=== PATIENT | female | born 1940 | race African-American/Black ===

== ENCOUNTER 2016-06-03 06:21 | Day surgery (SDC) | payer OTHER ==
[2016-06-03] MEDS ORDERED: FULVESTRANT 250 MG/5 ML SYRINGE IM ONE (08:00)
[2016-06-03 08:43] LABS: EOSINOPHIL 1.7 % (0-4.5); MCH 28.6 pg (25.7-33.7); MCHC 32.4 g/dl (32.0-36.0); MEAN CELL VOLUME 88.2 fl (80-96); MEAN PLT VOLUME 7.2 fl (7.5-11.1); NEUTROPHILS 71.3 % (42.8-82.8); PLATELET COUNT 250 K/MM3 (134-434); RDW 14.2 % (11.6-15.6); WHITE BLOOD COUNT 7.7 K/mm3 (4.0-10.0)
[2016-06-03 10:37] LABS: EOSINOPHIL 0.9 % (0-4.5); MCH 28.8 pg (25.7-33.7); MCHC 32.8 g/dl (32.0-36.0); MEAN PLT VOLUME 7.4 fl (7.5-11.1); NEUTROPHILS 77.9 % (42.8-82.8); PLATELET COUNT 252 K/MM3 (134-434); RDW 14.5 % (11.6-15.6); WHITE BLOOD COUNT 6.6 K/mm3 (4.0-10.0)
[2016-06-03 11:04] LABS: CALCIUM 10.1 mg/dL (8.5-10.1); CREATININE 1.2 mg/dL (0.55-1.02)
[2016-06-03 11:06] LABS: ALBUMIN 3.7 g/dl (3.4-5.0); BILIRUBIN,DIRECT 0.2 mg/dL (0.0-0.2)
[2016-06-03 11:08] LABS: BILIRUBIN,TOTAL 0.7 mg/dL (0.2-1.0); TOT PROT 7.3 g/dl (6.4-8.2)
[2016-06-03 15:49] VITALS: BP 143/80; PULSE 79; TEMP 97.6; BMI 27.4
== END 2016-06-03 18:54 | disposition home or self-care (01) ==
LOC: JONCCHEMO 06:21 → J7W 09:37 → JONCCHEMO 18:54
PROVIDERS: ATTEND Internal Medicine Hematology & Oncology
DX: Z51.11 Encounter for antineoplastic chemotherapy (principal); C50.212 Malignant neoplasm of upper-inner quadrant of left female breast; C79.51 Secondary malignant neoplasm of bone
CPT/HCPCS: 96402; J9395; 36415; 80048; 80076; 82378; 85025; 86300

== ENCOUNTER 2016-07-05 06:58 | Day surgery (SDC) | payer OTHER ==
[2016-07-05] MEDS ORDERED: FULVESTRANT 250 MG/5 ML SYRINGE IM ONE (08:00)
[2016-07-05 09:55] LABS: BASOPHIL 0.9 % (0-2.0); EOSINOPHIL 0.8 % (0-4.5); MCH 28.5 pg (25.7-33.7); MCHC 32.4 g/dl (32.0-36.0); MEAN CELL VOLUME 88.2 fl (80-96); MEAN PLT VOLUME 7.9 fl (7.5-11.1); NEUTROPHILS 80.3 % (42.8-82.8); PLATELET COUNT 238 K/MM3 (134-434); RDW 14.7 % (11.6-15.6); WHITE BLOOD COUNT 10.1 K/mm3 (4.0-10.0)
[2016-07-05] MEDS ORDERED: PORTA CATH FLUSH 10 ML IVPUSH PRN (12:27)
[2016-07-05 12:39] LABS: ALBUMIN 3.5 g/dl (3.4-5.0); BILIRUBIN,DIRECT 0.2 mg/dL (0.0-0.2); BILIRUBIN,TOTAL 0.6 mg/dL (0.2-1.0); CALCIUM 10.4 mg/dL (8.5-10.1); CREATININE 1.3 mg/dL (0.55-1.02); MAGNESIUM 2.3 mg/dL (1.8-2.4); TOT PROT 7.2 g/dl (6.4-8.2)
[2016-07-05 13:44] VITALS: BP 139/95; PULSE 86
[2016-07-05 14:03] VITALS: TEMP 98
== END 2016-07-05 15:01 | disposition home or self-care (01) ==
LOC: JONCCHEMO 06:58 → J7W 10:52 → JONCCHEMO 15:01
PROVIDERS: ATTEND Internal Medicine Hematology & Oncology
DX: Z51.11 Encounter for antineoplastic chemotherapy (principal); C50.212 Malignant neoplasm of upper-inner quadrant of left female breast; C79.51 Secondary malignant neoplasm of bone
CPT/HCPCS: 36415; 80048; 80076; 83735; 85025; 96402; J9395

== ENCOUNTER 2016-08-05 07:02 | Day surgery (SDC) | payer OTHER ==
[2016-08-05] MEDS ORDERED: FULVESTRANT 250 MG/5 ML SYRINGE IM ONE (08:00)
[2016-08-05 09:34] LABS: EOSINOPHIL 1.1 % (0-4.5); MCHC 31.9 g/dl (32.0-36.0); MEAN CELL VOLUME 87.8 fl (80-96); MEAN PLT VOLUME 7.8 fl (7.5-11.1); NEUTROPHILS 80.5 % (42.8-82.8); PLATELET COUNT 243 K/MM3 (134-434); WHITE BLOOD COUNT 8.4 K/mm3 (4.0-10.0)
[2016-08-05 11:25] VITALS: PULSE 83; TEMP 98
[2016-08-05 12:46] LABS: ALBUMIN 3.5 g/dl (3.4-5.0); BILIRUBIN,DIRECT 0.2 mg/dL (0.0-0.2); BILIRUBIN,TOTAL 0.6 mg/dL (0.2-1.0); CALCIUM 10.7 mg/dL (8.5-10.1); COCKROFT - GAULT 47.6; CREATININE 1.3 mg/dL (0.55-1.02); MAGNESIUM 2.2 mg/dL (1.8-2.4); TOT PROT 7.3 g/dl (6.4-8.2)
[2016-08-05 12:56] VITALS: BP 133/82
== END 2016-08-05 13:07 | disposition home or self-care (01) ==
LOC: JONCCHEMO 07:02 → J7W 11:01 → JONCCHEMO 13:07
PROVIDERS: ATTEND Internal Medicine Hematology & Oncology
DX: Z51.11 Encounter for antineoplastic chemotherapy (principal); C50.212 Malignant neoplasm of upper-inner quadrant of left female breast; C79.51 Secondary malignant neoplasm of bone
CPT/HCPCS: 96402; J9395; 36415; 80048; 80076; 82378; 83735; 85025; 86300

== ENCOUNTER 2016-08-31 07:23 | Inpatient (IN) | payer OTHER ==
--- NOTE | 2016-08-31 07:38 | PDOC ---
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 She reports that she experiences a chronic intermittent dry cough ever since her cancer came back, however, approximately 3 days ago, her cough worsen as it became constant. She reports feeling short of breath secondary to her constant cough and also nauseous, no vomiting. She has also reports orthopnea, as she has noted she has needed to sleep in an upright position to avoid feeling short of breath during the past few days. No associated fevers, chills, chest pain, lightheadedness, dizziness, headache, visual changes, neck pain, back pain, leg pain.swelling, abdominal pain, vomiting, diarrhea. No urinary symptoms. Allergies: No Known Drug Allergies Past Surgical History: Left breast mastectomy Social History: Former smoker. No EtOH and recreational drug use. Primary Care Physician: Dr. Francois Decker Oncologist/Lead Qa Analyst: Dr. Mejia Sofia <Evelyn Walls - Last Filed: 08/31/16 11:11> - General Chief Complaint: Shortness of Breath Stated Complaint: SOB Time Seen by Provider: 08/31/16 07:29 Past History - Past Medical History Anemia: No Asthma: No Cancer: Yes (breast mets to lung and bone) Cardiac Disorders: Yes (A FIB) CVA: Yes (R side weakness (mild)) COPD: No CHF: No Dementia: No Diabetes: Yes GI Disorders: No Disorders: No HTN: Yes Hypercholesterolemia: Yes Liver Disease: No Seizures: No Thyroid Disease: No - Surgical History Abdominal Surgery: No Appendectomy: No Cardiac Surgery: No Cholecystectomy: No Lung Surgery: No Neurologic Surgery: No Orthopedic Surgery: No - Immunization History Immunization Up to Date: Yes - Psycho/Social/Smoking Cessation Hx Anxiety: No Suicidal Ideation: No Smoking Status: No Smoking History: Never smoked Have you smoked in the past 12 months: No Number of Cigarettes Smoked Daily: 0 If you are a former smoker, when did you quit?: Over 30 years ago Information on smoking cessation initiated: No Hx Alcohol Use: No Drug/Substance Use Hx: No Substance Use Type: None Hx Substance Use Treatment: No <Shin Núñez - Last Filed: 08/31/16 10:58> <Evelyn Walls - Last Filed: 08/31/16 11:11> - Past Medical History Allergies/Adverse Reactions: Allergies Allergy/AdvReac Type Severity Reaction Status Date / Time No Known Drug Allergies Allergy Verified 08/31/16 07:25 Home Medications: Ambulatory Orders Metformin HCl 500 mg PO BID 02/16/15 Amlodipine Besylate [Norvasc -] 5 mg PO DAILY #30 tablet 02/20/15 Furosemide [Lasix -] 40 mg PO DAILY #30 tablet 02/20/15 Simvastatin [Zocor -] 40 mg PO HS #30 tablet 02/20/15 Nebivolol HCl [Bystolic] 20 mg PO HS 05/07/15 Warfarin Na [Coumadin -] 6 mg PO DAILY #30 tablet 05/08/15 Glyburide [Diabeta -] 5 mg PO ASDIR 08/31/16 Olmesartan Medoxomil [Benicar (Nf)] 40 mg PO ASDIR 08/31/16 Sitagliptin Phosphate [Januvia] 50 mg PO DAILY 08/31/16 Review of Systems - Review of Systems Able to Perform ROS?: Yes Comments:: 08/31/16 07:52 CONSTITUTIONAL: No fever, no chills, no fatigue EYES: No visual changes ENT: No ear pain, no sore throat CARDIOVASCULAR: No chest pain, no palpitations RESPIRATORY: Yes: Cough. Shortness of Breath. Orthopnea GI: No abdominal pain, no nausea, no vomiting, no constipation, no diarrhea GENITOURINARY: No dysuria, no frequency, no hematuria MUSKULOSKELETAL: No back pain, no joint pain, no myalgias SKIN: No rash NEURO: No headache <Evelyn Walls - Last Filed: 08/31/16 11:11> *Physical Exam - Vital Signs Last Vital Signs Temp Pulse Resp BP Pulse Ox 97.6 F 125 H 18 141/91 96 08/31/16 07:26 08/31/16 07:26 08/31/16 07:26 08/31/16 07:26 08/31/16 07:26 <Shin Núñez - Last Filed: 08/31/16 10:58> - Vital Signs Last Vital Signs Temp Pulse Resp BP Pulse Ox 98.2 F 125 H 18 141/91 96 08/31/16 07:35 08/31/16 07:26 08/31/16 07:26 08/31/16 07:26 08/31/16 07:26 - Physical Exam Comments: 08/31/16 07:52 CONSTITUTIONAL: Awake. Alert and oriented x3. Tachypneic and dyspneic HEAD: Normocephalic; atraumatic EYES: PERRL; EOM intact ENMT: External appears normal; normal oropharynx NECK: Supple; non-tender; no cervical lymphadenopathy CARD: Tachycardic. Irregularly, irregular rate and rhythm no murmurs, rubs, or gallops RESP: Decreased breath sounds appreciated about two thirds of the left lung field up. ABD: Soft, non-distended; non-tender; no palpable organomegaly, no palpable hernias EXT: Normal ROM in all four extremities; non-tender to palpation; distal pulses intact SKIN: Warm, dry, no rash NEURO: Right lower extremity motor strength is 3/5. Right upper extremity, left upper extremity and left lower extremity motor strength is 5/5. <Evelyn Walls - Last Filed: 08/31/16 11:11> Heart Score/ECG Review #1 08/31/16 08:15 Reviewed and interpreted by Dr. Shin Núñez IMPRESSION: Atrial fibrillation with rapid ventricular response with a rate of 121 bpm. LVH. T wave inversions in v1. Left axis deviation. <Evelyn Walls - Last Filed: 08/31/16 11:11> ED Treatment Course - LABORATORY CBC & Chemistry Diagram: 08/31/16 08:22 08/31/16 08:22 <Shin Núñez - Last Filed: 08/31/16 10:58> - LABORATORY CBC & Chemistry Diagram: 08/31/16 08:22 08/31/16 08:22 - RADIOLOGY Radiograph Interpretation: 08/31/16 08:46 EXAM: RAD/CHEST X-RAY PORTABLE Interpreted by Dr. Declan Stone IMPRESSION: Right port catheter in place. No evidence of right pneumothorax, or pleural effusion. The right diaphragm is not effaced, no evidence of blunting of the right costophrenic angles. Nodularity is seen throughout the right lung. Combination of the parenchymal and pleural disease is observed in the left hemithorax. Surgical clips are noted in the left axillary region. <Evelyn Walls - Last Filed: 08/31/16 11:11> Medical Decision Making - Medical Decision Making 08/31/16 10:59 Patient is a frail-appearing 76-year-old female with history of metastatic breast CA Faslodex, diabetes, DVT, status post CVA, who presents with worsening shortness of breath and dyspnea (at rest and with minimal exertion for the past several days and did of atrial fibrillation with rapid ventricular response. On initial evaluation, patient is noted to be dyspneic, tachypneic and tachycardic with significantly decreased breath sounds on the left. CBC shows no evidence of leukocytosis. Calcium is mildly elevated consistent with bony metastases. INR is noted to be 3.34 making PE at this time highly unlikely. Chest x-ray shows persistent pleural disease on the left which was better evaluated by a CT of chest from 2 weeks ago. After administration of normal saline-500 mL, patient 's heart rate and respiratory rate have slightly improved. I suspect new onset A. fib with rapid ventricular response due to the pulmonary disease requiring rate control. We'll administer Cardizem-30 mg by mouth. Will consult cardiology. Will admit to telemetry further evaluation and treatment <Shin Núñez - Last Filed: 08/31/16 10:58> - Medical Decision Making 08/31/16 10:[address] Mejia Sofia. Immediate response. Case was discussed. 08/31/16 10:[address] De Jesus. Immediate response. Case was discussed. 08/31/16 11:[address] Osorio <Evelyn Walls - Last Filed: 08/31/16 11:11> *DC/Admit/Observation/Transfer - Discharge Dispostion Admit: Yes - Attestations Physician Attestion: 08/31/16 10:59 The documentation was prepared by the scribe under my direct supervision. I have reviewed the documentation which correctly represents the findings, medical decision-making and critical action taken by me. <Shin Núñez - Last Filed: 08/31/16 10:58> - Attestations Scribe Attestion: 08/31/16 07:55 Documentation prepared by Evelyn Walls, acting as medical technician for Shin Núñez MD. <Evelyn Walls - Last Filed: 08/31/16 11:11> Diagnosis at time of Disposition: Atrial fibrillation with rapid ventricular response, Pleural effusion Breast cancer Qualifiers: Breast location: unspecified site of breast Estrogen receptor status: positive Patient sex: female Laterality: right Qualified Code(s): C50.911 - Malignant neoplasm of unspecified site of right female breast - Referrals Referrals: Francois Decker MD [Primary Care Provider] -
[2016-08-31] MEDS ORDERED: SODIUM CHLORIDE 500 ML IV STA (07:49)
[2016-08-31 07:50] VITALS: BMI 27.8
[2016-08-31 09:10] LABS: BASOPHIL 0.7 % (0-2.0); EOSINOPHIL 0.5 % (0-4.5); MCH 28.5 pg (25.7-33.7); MCHC 32.5 g/dl (32.0-36.0); MEAN CELL VOLUME 87.7 fl (80-96); MEAN PLT VOLUME 7.6 fl (7.5-11.1); NEUTROPHILS 82.7 % (42.8-82.8); PLATELET COUNT 235 K/MM3 (134-434); RDW 14.9 % (11.6-15.6); WHITE BLOOD COUNT 8.4 K/mm3 (4.0-10.0)
[2016-08-31 09:35] LABS: ALBUMIN 3.4 g/dl (3.4-5.0); BILIRUBIN,TOTAL 0.6 mg/dL (0.2-1.0); CALCIUM 10.2 mg/dL (8.5-10.1); COCKROFT - GAULT 57.9615; CREATININE 1.1 mg/dL (0.55-1.02); TOT PROT 6.9 g/dl (6.4-8.2)
[2016-08-31 09:37] LABS: TROPONIN I 0.14 ng/ml (0.00-0.05)
[2016-08-31 09:57] LABS: INR 3.34 (0.82-1.09); PROTHROMBIN TIME (PATIENT) 37.6 SEC (9.98-11.88)
[2016-08-31] MEDS ORDERED: dilTIAZem HCL 30 MG TABLET (FP) PO ONE (10:38)
[2016-08-31] MEDS ORDERED: dilTIAZem HCL 30 MG TABLET (FP) ONE (10:55)
--- NOTE | 2016-08-31 11:18 | EKG ---
Test Reason : Blood Pressure : / mmHG Vent. Rate : 121 BPM Atrial Rate : 122 BPM P-R Int : 000 ms QRS Dur : 102 ms QT Int : 276 ms P-R-T Axes : 000 -42 139 degrees QTc Int : 391 ms ATRIAL FIBRILLATION WITH RAPID VENTRICULAR RESPONSE LEFT AXIS DEVIATION VOLTAGE CRITERIA FOR LEFT VENTRICULAR HYPERTROPHY ABNORMAL ECG WHEN COMPARED WITH ECG OF 20-FEB-2015 08:52, ATRIAL FIBRILLATION HAS REPLACED SINUS RHYTHM VENT. RATE HAS INCREASED BY 50 BPM T WAVE VARIATION Confirmed by KARLEY DUFFY MD ([id number]) on 08/31/2016 11:18:46 AM Referred By: Confirmed By:KARLEY DUFFY MD
--- NOTE | 2016-08-31 19:07 | HP ---
Admitting History and Physical - Admission History of Present Illness: Pt is a 76 y/o female with PMH significant for HTN, HLD, ascending thoracic aortic aneurysm, carotid stenosis, CVA (with residual right leg weakness; ambulates with a walker), DVT, Pafib, and left breast cancer (s/p lt mastectomy ) and mets to the lungs and bone, NIDDM and parathyroid adenoma. Pt presented to the ER bc of increasing dyspnea x few weeks although hard to get accurate history. Pt also has a cough wc is dry nonproductive. While in the ER pt found to have rapid AFib wc improved after IV hydration. Pt denied any fever/ chills/chest pain or palpitations. 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 Cardiovascular: Yes: AFIB, CAD, HTN, Hyperlipdemia ...: No Heme/Onc: Yes: Other (Breast cancer w/ mets to bone and lung) Musculoskeletal: Yes: Osteoarthritis Endocrine: Yes: Diabetes Mellitus, Other (Parathyroid adenoma) - Past Surgical History Additional Past Surgical History: Lt breast mastectomy - Smoking History Smoking history: Former smoker Have you smoked in the past 12 months: No Aproximately how many cigarettes per day: 0 If you are a former smoker, when did you quit?: Over 30 years ago - Alcohol/Substance Use Hx Alcohol Use: No Home Medications - Allergies Allergies/Adverse Reactions: Allergies Allergy/AdvReac Type Severity Reaction Status Date / Time No Known Drug Allergies Allergy Verified 08/31/16 07:25 - Home Medications Home Medications: Ambulatory Orders Metformin HCl 500 mg PO BID 02/16/15 Amlodipine Besylate [Norvasc -] 5 mg PO DAILY #30 tablet 02/20/15 Furosemide [Lasix -] 40 mg PO DAILY #30 tablet 02/20/15 Simvastatin [Zocor -] 40 mg PO HS #30 tablet 02/20/15 Nebivolol HCl [Bystolic] 20 mg PO HS 05/07/15 Warfarin Na [Coumadin -] 6 mg PO DAILY #30 tablet 05/08/15 Glyburide [Diabeta -] 5 mg PO ASDIR 08/31/16 Olmesartan Medoxomil [Benicar (Nf)] 40 mg PO ASDIR 08/31/16 Sitagliptin Phosphate [Januvia] 50 mg PO DAILY 08/31/16 Family Disease History - Family Disease History Family History: Unable to Obtain Review of Systems - Review of Systems Constitutional: reports: Loss of Appetite, Weakness Eyes: reports: No Symptoms HENT: reports: No Symptoms Neck: reports: No Symptoms Cardiovascular: reports: Shortness of Breath Respiratory: reports: Cough, SOB Gastrointestinal: reports: No Symptoms Genitourinary: reports: No Symptoms Physical Examination Vital Signs: Vital Signs Temperature 97.8 F 08/31/16 15:52 Pulse Rate 95 H 08/31/16 15:52 Respiratory Rate 18 08/31/16 16:52 Blood Pressure 160/90 08/31/16 15:52 O2 Sat by Pulse Oximetry (%) 99 08/31/16 16:52 Constitutional: Yes: Calm Eyes: Yes: WNL HENT: Yes: WNL Neck: Yes: Supple Cardiovascular: Yes: Tachycardia Respiratory: Yes: Other (Coarse bs b/l) Gastrointestinal: Yes: WNL, Normal Bowel Sounds, Soft Extremities: Yes: WNL Edema: LLE: Trace, RLE: Trace Neurological: Yes: WNL, Alert, Oriented ...Motor Strength: WNL Problem List - Problems (1) Shortness of breath Assessment/Plan: Multifactorial CHF vs lung mets vs infectious process Code(s): R06.02 - SHORTNESS OF BREATH (2) Acute on chronic diastolic (congestive) heart failure Assessment/Plan: BNP >12,000. Cont IV lasix As per cardio Elevated troponin due to demand ischemia Cont to trend Check echo Monitor electrolytes Code(s): I50.33 - ACUTE ON CHRONIC DIASTOLIC (CONGESTIVE) HEART FAILURE (3) Atrial fibrillation with rapid ventricular response Assessment/Plan: Monitor on tele Serial cpk/troponin Hert rate better controlled Cardio consult Code(s): I48.91 - UNSPECIFIED ATRIAL FIBRILLATION (4) Diabetes Assessment/Plan: Cont sliding scale w/ coverage Code(s): E11.9 - TYPE 2 DIABETES MELLITUS WITHOUT COMPLICATIONS Qualifiers: Diabetes mellitus type: type 2 Diabetes mellitus complication status: without complication Diabetes mellitus intermediate teacher insulin use: without jail use Qualified Code(s): E11.9 - Type 2 diabetes mellitus without complications (5) HTN (hypertension) Code(s): I10 - ESSENTIAL (PRIMARY) HYPERTENSION Qualifiers: Hypertension type: essential hypertension Qualified Code(s): I10 - Essential (primary) hypertension (6) Hypercholesteremia Assessment/Plan: Cont lipitor Code(s): E78.0 - PURE HYPERCHOLESTEROLEMIA * DO NOT USE *
[2016-08-31] MEDS ORDERED: DEXTROSE 5%-0.45% SALINE 1,000 ML IV SCH (20:00)
[2016-08-31] MEDS ORDERED: glyBURIDE 5 MG TABLET (UD) PO SCH (20:00)
[2016-08-31] MEDS: LEVOFLOXACIN 500 MG IVPB 100 ML IVPB SCH (21:22)
[2016-08-31 21:28] LABS: TROPONIN I 0.13 ng/ml (0.00-0.05)
[2016-08-31] MEDS: VALSARTAN 160 MG TABLET (UD) PO SCH (21:28)
[2016-08-31] MEDS: ATORVASTATIN CA 20 MG TABLET (FP) PO SCH (21:28)
[2016-08-31] MEDS: INSULIN SLIDING SCALE (NOVOLOG) 1 VIAL SQ SCH (21:32)
[2016-08-31] MEDS ORDERED: NEBIVOLOL 10 MG TABLET (FP) PO SCH (22:00)
[2016-08-31] MEDS: ALBUTEROL SO4 2.5/IPRATROPIUM 0.5 INH SOL 3 ML VIAL.NEB. NEB PRN (22:20)
[2016-09-01] MEDS: ALBUTEROL SO4 2.5/IPRATROPIUM 0.5 INH SOL 3 ML VIAL.NEB. NEB PRN ×2 (05:45→12:44)
[2016-09-01] MEDS: metFORMIN HCL 500 MG TABLET (FP) PO SCH ×2 (06:01→18:00)
[2016-09-01] MEDS: INSULIN SLIDING SCALE (NOVOLOG) 1 VIAL SQ SCH ×4 (06:03→22:19)
[2016-09-01] MEDS ORDERED: sitaGLIPtin PHOSPHATE 50 MG TABLET PO SCH (07:00)
[2016-09-01 07:24] LABS: ALBUMIN 3.1 g/dl (3.4-5.0); BILIRUBIN,TOTAL 0.6 mg/dL (0.2-1.0); CALCIUM 9.1 mg/dL (8.5-10.1); COCKROFT - GAULT 53.1335; CREATININE 1.2 mg/dL (0.55-1.02); TOT PROT 6.5 g/dl (6.4-8.2)
[2016-09-01 07:33] LABS: THYROID STIMULATING HORMONE 1.55 uIU/ml (0.358-3.74)
[2016-09-01 07:36] LABS: EOSINOPHIL 0.6 % (0-4.5); MCH 28.8 pg (25.7-33.7); MCHC 32.5 g/dl (32.0-36.0); MEAN CELL VOLUME 88.4 fl (80-96); MEAN PLT VOLUME 8.4 fl (7.5-11.1); NEUTROPHILS 79.7 % (42.8-82.8); PLATELET COUNT 217 K/MM3 (134-434); RDW 14.8 % (11.6-15.6); WHITE BLOOD COUNT 8.6 K/mm3 (4.0-10.0)
[2016-09-01 07:37] LABS: INR 3.84 (0.82-1.09); PROTHROMBIN TIME (PATIENT) 43.4 SEC (9.98-11.88)
--- NOTE | 2016-09-01 09:01 | CON.CARD ---
Consult Consult Specialty:: Cardiology Referred by:: Mony De Jesus MD Reason for Consultation:: Paroxysmal afib - History of Present Illness Chief Complaint: Paroxysmal afib History of Present Illness: 76 year old -[place] female with a significant past medical history of CAD, angina pectoris, NIDDM, hypertension/HCVD, left breast cancer s/p lumpectomy and mastectomy (2000) with recurrence and mets to lung and bone, hyperlipidemia, cerebrovascular disease, ascending thoracic aortic aneurysm, carotid stenosis, parathyroid adenoma, stroke (2003), DVT, CVA with mild word finding difficulty, paroxysmal afib presents for progressive dyspnea on exertion , cough and decreased exercise capacity without associated sxs of chest discomfort, palpitations, near or true syncope, orthopnea, PND or LE edema. Patient noted to be in rapid afib in 130s-140s, given Cardizem, back in sinus rhythm with rate-control. Allergies: No Known Drug Allergies Past Surgical History: Left breast mastectomy Social History: Former smoker. No EtOH and recreational drug use. Primary Care Physician: Dr. Francois Decker Oncologist/Data Capture Clerk: Dr. 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 Cardio/Vascular: Yes: AFIB, HTN ...: No Endocrine: Yes: Diabetes Mellitus - Alcohol/Substance Use Hx Alcohol Use: No - Smoking History Smoking history: Former smoker Have you smoked in the past 12 months: No Aproximately how many cigarettes per day: 0 If you are a former smoker, when did you quit?: Over 30 years ago Home Medications - Allergies Allergies/Adverse Reactions: Allergies Allergy/AdvReac Type Severity Reaction Status Date / Time No Known Drug Allergies Allergy Verified 08/31/16 07:25 - Home Medications Home Medications: Ambulatory Orders Metformin HCl 500 mg PO BID 02/16/15 Amlodipine Besylate [Norvasc -] 5 mg PO DAILY #30 tablet 02/20/15 Furosemide [Lasix -] 40 mg PO DAILY #30 tablet 02/20/15 Simvastatin [Zocor -] 40 mg PO HS #30 tablet 02/20/15 Nebivolol HCl [Bystolic] 20 mg PO HS 05/07/15 Warfarin Na [Coumadin -] 6 mg PO DAILY #30 tablet 05/08/15 Glyburide [Diabeta -] 5 mg PO ASDIR 08/31/16 Olmesartan Medoxomil [Benicar (Nf)] 40 mg PO ASDIR 08/31/16 Sitagliptin Phosphate [Januvia] 50 mg PO DAILY 08/31/16 Review of Systems - Review of Systems Respiratory: reports: Cough, Exercise Intolerance, SOB on Exertion Vital Signs: Vital Signs Temperature 98.0 F 09/01/16 08:55 Pulse Rate 83 09/01/16 08:55 Respiratory Rate 20 09/01/16 08:55 Blood Pressure 123/76 09/01/16 08:55 O2 Sat by Pulse Oximetry (%) 98 08/31/16 21:00 Constitutional: Yes: No Distress, Calm Neck: Yes: Supple Respiratory: Yes: Regular, Diminished Gastrointestinal: Yes: Normal Bowel Sounds, Soft Cardiovascular: Yes: Regular Rate and Rhythm JVD: No Carotid Bruit: No Heart Sounds: Yes: S1, S2 Murmur: Yes: Systolic Murmur, Grade 1 Edema: No - Other Data Labs, Other Data: CBC, BMP 09/01/16 05:35 09/01/16 05:35 INR, PTT INR 3.84 (0.82-1.09) H 09/01/16 05:35 Troponin, BNP 08/31/16 20:30 Troponin I 0.13 H Troponin, BNP 08/31/16 20:30 Troponin I 0.13 H Afib @ 121 LVH QTc 391 msec Tele: PAF->SR Ejection Fraction %: LVEF > or = 40 % Imaging - Results Cat Scan: Report Reviewed (08/[address]: Diffuse lung nodularity and pleural thickening c/w met disease stable since 07/26/2016) Problem List - Problems (1) Atrial fibrillation with rapid ventricular response Code(s): I48.91 - UNSPECIFIED ATRIAL FIBRILLATION (2) Breast cancer Code(s): C50.919 - MALIGNANT NEOPLASM OF UNSP SITE OF UNSPECIFIED FEMALE BREAST Qualifiers: Breast location: unspecified site of breast Estrogen receptor status: positive Patient sex: female Laterality: right Qualified Code(s): C50.911 - Malignant neoplasm of unspecified site of right female breast; Z17.0 - Estrogen receptor positive status [ER+] (3) Diabetes Code(s): E11.9 - TYPE 2 DIABETES MELLITUS WITHOUT COMPLICATIONS Qualifiers: Diabetes mellitus type: type 2 Diabetes mellitus complication status: without complication Diabetes mellitus intermediate insulin use: without intermediate use Qualified Code(s): E11.9 - Type 2 diabetes mellitus without complications (4) HTN (hypertension) Code(s): I10 - ESSENTIAL (PRIMARY) HYPERTENSION Qualifiers: Hypertension type: essential hypertension Qualified Code(s): I10 - Essential (primary) hypertension (5) Hypercholesteremia Code(s): E78.0 - PURE HYPERCHOLESTEROLEMIA * DO NOT USE * (6) Shortness of breath Code(s): R06.02 - SHORTNESS OF BREATH (7) Acute on chronic diastolic (congestive) heart failure Code(s): I50.33 - ACUTE ON CHRONIC DIASTOLIC (CONGESTIVE) HEART FAILURE (8) Demand ischemia Code(s): I24.8 - OTHER FORMS OF ACUTE ISCHEMIC HEART DISEASE (9) Chronic kidney disease (CKD) Code(s): N18.9 - CHRONIC KIDNEY DISEASE, UNSPECIFIED Qualifiers: Chronic kidney disease stage: stage 3 (moderate) Qualified Code(s): N18.3 - Chronic kidney disease, stage 3 (moderate) Assessment/Plan 02/17/2015 Echo: Normal LV size with low normal LV fxn, mild MR, mod TR, mild AR , tr-mild AK, small pericardial effusion 1. Dyspnea on exertion referable to acute on chronic LV diastolic failure, probably exacerbated by PAF 2. Paroxysmal atrial fibrillation with rapid ventricular response, with supratherapeutic INR 3. CAD, demand ischemic injury 4. Hypertension/HCVD 5. NIDDM 6. Hyperlipidemia 7. Carotid artery stenosis 8. Ascending thoracic aortic aneurysm 9. Breast carcinoma post left mastectomy with mets to lung and bone 10. CKD PLAN: 1. Change Bystolic to Sotalol 80 bid with close monitoring of QTC interval. Change Norvasc to Cardizem CD 120 qd, continue Diovan 320 qd, Lipitor 20 qhs and Lasix 40 qd 2. Continue Coumadin as per INR 3. F/u echocardiogram to assess ventricular and valve fxn, trend troponins 4. Thank you fror consultative opportunity
[2016-09-01] MEDS ORDERED: guaiFENesin 200 MG/10 ML 10 ML UNIT-DOSE CUPS PO PRN (09:25)
[2016-09-01] MEDS ORDERED: FUROSEMIDE 40 MG TABLET (FP) PO SCH (10:00)
[2016-09-01] MEDS ORDERED: WARFARIN NA 3 MG TABLET PO SCH (10:00)
[2016-09-01] MEDS ORDERED: amLODIPine BESYLATE 5 MG TABLET (FP) PO SCH (10:00)
[2016-09-01] MEDS ORDERED: SOTALOL HCL 80 MG TABLET (FP) PO SCH (10:00)
[2016-09-01] MEDS: VALSARTAN 160 MG TABLET (UD) PO SCH (10:41)
[2016-09-01] MEDS: LEVOFLOXACIN 500 MG IVPB 100 ML IVPB SCH (10:42)
[2016-09-01] MEDS ORDERED: methylPREDNISolone NA SUCC 40 MG/1 ML VIAL IVPB ONE (13:30)
[2016-09-01 13:46] LABS: ARTERIAL BLD GAS O2 SATURATION 95.3 % (90-98.9); ARTERIAL BLOOD GAS BASE EXCESS -2.8 meq/l (-2-2); ARTERIAL BLOOD GAS HCO3 20.7 meq/L (22-26); ARTERIAL BLOOD GAS PO2 75.6 mmHg (70-100)
[2016-09-01 13:47] LABS: ALLENS TEST POSITIVE; ART PUNCT SITE RIGHT RADIAL; PT. ON O2? YES
[2016-09-01 13:48] LABS: ARTERIAL BLOOD GAS pH 7.41 (7.35-7.45); LPM/O2% 40%; TYPE OF O2 VENTI MASK
--- NOTE | 2016-09-01 14:03 | CON.PULM ---
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 She reports that she experiences a chronic intermittent dry cough ever since her cancer came back, however, approximately 3 days ago, her cough worsen as it became constant. She reports feeling short of breath secondary to her constant cough and also nauseous, no vomiting. She has also reports orthopnea, as she has noted she has needed to sleep in an upright position to avoid feeling short of breath during the past few days. No associated fevers, chills, chest pain, lightheadedness, dizziness, headache, visual changes, neck pain, back pain, leg pain.swelling, abdominal pain, vomiting, diarrhea. No urinary symptoms. The nurse reports that the patient is presently complaining of her throat closing and SOB. - History Source History Provided By: Patient, Medical Record Limitations to Obtaining History: Clinical Condition - Past Medical History CYBERATHLETE: Yes: CVA Cardio/Vascular: Yes: AFIB, HTN Pulmonary: Yes: Other (mets to lung) ...: No Heme/Onc: Yes: Hypercoaguable State Endocrine: Yes: Diabetes Mellitus - Past Surgical History Past Surgical History: Yes: Mastectomy - Alcohol/Substance Use Hx Alcohol Use: No History of Substance Use: reports: None - Smoking History Smoking history: Former smoker Have you smoked in the past 12 months: No Aproximately how many cigarettes per day: 0 If you are a former smoker, when did you quit?: Over 30 years ago - Social History ADL: Family Assistance Place of : [facility] History of Recent Travel: No Home Medications - Allergies Allergies/Adverse Reactions: Allergies Allergy/AdvReac Type Severity Reaction Status Date / Time No Known Drug Allergies Allergy Verified 08/31/16 07:25 - Home Medications Home Medications: Ambulatory Orders Metformin HCl 500 mg PO BID 02/16/15 Amlodipine Besylate [Norvasc -] 5 mg PO DAILY #30 tablet 02/20/15 Furosemide [Lasix -] 40 mg PO DAILY #30 tablet 02/20/15 Simvastatin [Zocor -] 40 mg PO HS #30 tablet 02/20/15 Nebivolol HCl [Bystolic] 20 mg PO HS 05/07/15 Warfarin Na [Coumadin -] 6 mg PO DAILY #30 tablet 05/08/15 Glyburide [Diabeta -] 5 mg PO ASDIR 08/31/16 Olmesartan Medoxomil [Benicar (Nf)] 40 mg PO ASDIR 08/31/16 Sitagliptin Phosphate [Januvia] 50 mg PO DAILY 08/31/16 Family Disease History - Family Disease History Family History: Unremarkable Review of Systems - Review of Systems Constitutional: denies: Diaphoresis, Fever Eyes: denies: Blurred Vision HENT: reports: Difficult Swallowing. denies: Throat Pain Neck: reports: No Symptoms Cardiovascular: reports: Shortness of Breath. denies: Chest Pain Respiratory: reports: Cough, SOB on Exertion. denies: Hemoptysis, Wheezing Gastrointestinal: denies: Abdominal Pain Genitourinary: denies: Burning Breasts: reports: No Symptoms Reported Musculoskeletal: reports: No Symptoms Neurological: reports: No Symptoms Physical Exam Vital Sings: Vital Signs Temperature 98.0 F 09/01/16 08:55 Pulse Rate 77 09/01/16 13:50 Respiratory Rate 20 09/01/16 08:55 Blood Pressure 123/76 09/01/16 08:55 O2 Sat by Pulse Oximetry (%) 97 09/01/16 13:50 Constitutional: Yes: Anxious, Mild Distress Eyes: Yes: EOM Intact HENT: Yes: Atraumatic, Normocephalic. No: Epistaxis, Hoarseness, Pharyngeal Erythema, Rhinnorhea, Thrush, Tonsillar Exudate Neck: Yes: Supple. No: Lymphadenopathy, Thyromegaly Cardiovascular: Yes: Pulse Irregular, S1, S2 Respiratory: Yes: Diminished Gastrointestinal: Yes: Soft Extremities: No: Calf Tenderness Edema: No Neurological: Yes: Alert Labs: CBC, BMP 09/01/16 05:35 09/01/16 05:35 ABG Results ABG pH 7.41 (7.35-7.45) 09/01/16 13:40 ABG pCO2 at Pt Temp 33.8 mmHg (35-45) L 09/01/16 13:40 ABG pO2 at Pt Temp 75.6 mmHg (70-100) 09/01/16 13:40 ABG HCO3 20.7 meq/L (22-26) L 09/01/16 13:40 ABG O2 Sat (Measured) 95.3 % (90-98.9) 09/01/16 13:40 ABG O2 Content 15.6 % vol (15-22) 09/01/16 13:40 ABG Base Excess -2.8 meq/l (-2-2) L 09/01/16 13:40 REST REVIEWED Imaging - Results Chest X-ray: Image Reviewed EKG: Image Reviewed Problem List - Problems (1) Acute on chronic diastolic (congestive) heart failure Code(s): I50.33 - ACUTE ON CHRONIC DIASTOLIC (CONGESTIVE) HEART FAILURE (2) Atrial fibrillation with rapid ventricular response Code(s): I48.91 - UNSPECIFIED ATRIAL FIBRILLATION (3) Breast cancer Code(s): C50.919 - MALIGNANT NEOPLASM OF UNSP SITE OF UNSPECIFIED FEMALE BREAST Qualifiers: Breast location: unspecified site of breast Estrogen receptor status: positive Patient sex: female Laterality: right Qualified Code(s): C50.911 - Malignant neoplasm of unspecified site of right female breast; Z17.0 - Estrogen receptor positive status [ER+] (4) Lung metastases Code(s): C78.00 - SECONDARY MALIGNANT NEOPLASM OF UNSPECIFIED LUNG Assessment/Plan ACUTE ONSET SOB/?UPPER AIRWAY ETIOLOGY(NO STRIDOR NOTED) IMPROVED AFTER NEB RX LUNG METS FROM BREAST CA STAT CXR ABG REVIEWED CONTINUE CURRENT O2 V/M ENT EVAL CONTINUE MEDROL/MAY NEED BENADRYL CONSIDER HOLDING LEVAQUIN SYMPTOMS BEGAN SOON AFTER, ALSO PATIENT IS ON WARFARIN MAY ALSO NEED TO HOLD DIOVAN (?ANGIOEDEMA) Jac ROBB MD
[2016-09-01] MEDS: methylPREDNISolone NA SUCC 40 MG/1 ML VIAL IVPB SCH ×3 (15:17→18:00)
[2016-09-01] MEDS ORDERED: FUROSEMIDE 40 MG/4 ML INJECTABLE VIAL IVPUSH ONE (16:43)
--- NOTE | 2016-09-01 16:48 | CONSULT ---
Consultation: REQUESTING PROVIDER: Alejandro CONSULT REQUEST: We have been asked to medically evaluate this patient for acute respiratory failure. HISTORY OF PRESENT ILLNESS: Patient is a 76 year old female with PMH of Left breast cancer s/p lumpectomy and mastectomy (2000) with recurrence and mets to lung and bone, DVT, CAD, HTN, HLD, ascending thoracic aortic aneurysm, carotid stenosis, DM, CVA, Paroxysmal Atrial fibrillation who presented to ED with progressive dyspnea on exertion, cough and decreased exercise capacity. She stated she had a chronic cough since cancer cam back, but it has worsened in last 3 days so she decided to call EMS. Patient denied any chest pain or palpitations. Found to be in Atrial Fibrillation with RVR 130-140s. CXR showed persistent pleural disease on the left. Patient was given Cardizem 30mg with return to Sinus rhythm. She was admitted to telemetry for A-fib w/ RVR with concurrent pleural effusion. Rapid response was called this afternoon. Patient had reported to nurse that she was having difficulty breathing. Oxygen saturation was >95% but patient distress warranted transfer to ICU. Lasix 40mg IVPUSH given in ICU. Patient was placed on 50% ventimask with oxygen saturation >92%. REVIEW OF SYSTEMS: CONSTITUTIONAL: (+)diaphoresis Absent: fever, chills, generalized weakness, malaise, loss of appetite, weight change HEENT: Absent: rhinorrhea, nasal congestion, throat pain, throat swelling, difficulty swallowing, mouth swelling, ear pain, eye pain, visual changes CARDIOVASCULAR: Absent: chest pain, syncope, palpitations, irregular heart rate, lightheadedness , peripheral edema RESPIRATORY: (+)shortness of breath Absent: cough, dyspnea with exertion, orthopnea, wheezing, stridor, hemoptysis GASTROINTESTINAL: Absent: abdominal pain, abdominal distension, nausea, vomiting, diarrhea, constipation, melena, hematochezia GENITOURINARY: Absent: dysuria, frequency, urgency, hesitancy, hematuria, flank pain, genital pain MUSCULOSKELETAL: Absent: myalgia, arthralgia, joint swelling, back pain, neck pain SKIN: Absent: rash, itching, pallor HEMATOLOGIC/IMMUNOLOGIC: Absent: easy bleeding, easy bruising, lymphadenopathy, frequent infections ENDOCRINE: Absent: unexplained weight gain, unexplained weight loss, heat intolerance, cold intolerance NEUROLOGIC: Absent: headache, focal weakness or paresthesias, dizziness, unsteady gait, seizure, mental status changes, bladder or bowel incontinence PSYCHIATRIC: (+)anxiety, Absent: depression, suicidal or homicidal ideation, hallucinations. PHYSICAL EXAMINATION Vital Signs - 24 hr 08/31/16 08/31/16 08/31/16 16:52 17:00 21:00 Temperature 97.9 F Pulse Rate 110 H Respiratory 18 20 20 Rate Blood Pressure 142/87 O2 Sat by Pulse 99 98 Oximetry (%) 08/31/16 09/01/16 09/01/16 22:00 02:03 06:00 Temperature 97.9 F 97.7 F 98.0 F Pulse Rate 102 H 93 H 108 H Respiratory 20 20 20 Rate Blood Pressure 151/71 113/72 146/73 O2 Sat by Pulse Oximetry (%) 09/01/16 09/01/16 08:55 13:50 Temperature 98.0 F Pulse Rate 83 77 Respiratory 20 Rate Blood Pressure 123/76 O2 Sat by Pulse 97 Oximetry (%) GENERAL: Awake, alert, and fully oriented, in no acute distress. Resting in bed comfortably with ventimask on. HEENT: Atraumatic, EOMI, PERRLA, No lymphadenopathy noted, moist membranes LUNGS: Moderalty diminished breath sounds right lower lung, crackles noted right basilar lung; no wheezing or stridor noted; no accessory muscle use HEART: Regular rate and rhythm, S1 and S2 ABDOMEN: Soft, nontender, not distended, normoactive bowel sounds, no guarding, no rebound UPPER EXTREMITIES: 2+ pulses, warm, well-perfused. No cyanosis. No clubbing. Cap refill <2 seconds. No peripheral edema. LOWER EXTREMITIES: 2+ pulses, warm, well-perfused. No calf tenderness. +1 bilateral lower extremity edema noted NEUROLOGICAL: Cranial nerves II-XII intact. Normal gait. PSYCHIATRIC: Cooperative. Good eye contact. Appropriate mood and affect. SKIN: Warm, dry, normal turgor, no rashes or lesions noted. Laboratory Results - last 24 hr 08/31/16 08/31/16 09/01/16 20:30 21:32 05:30 WBC RBC Hgb Hct MCV MCHC RDW Plt Count MPV Neutrophils % Lymphocytes % Monocytes % Eosinophils % Basophils % INR Puncture Site ABG pH ABG pCO2 at Pt Temp ABG pO2 at Pt Temp ABG HCO3 ABG O2 Sat (Measured) ABG O2 Content ABG Base Excess Khurram Test O2 Delivery Device Oxygen Flow Rate PEEP Sodium Potassium Chloride Carbon Dioxide Anion Gap BUN Creatinine Creat Clearance w eGFR POC Glucometer 162 217 Random Glucose Calcium Total Bilirubin AST ALT Alkaline Phosphatase Creatine Kinase 70 Troponin I 0.13 H Total Protein Albumin TSH 09/01/16 09/01/16 09/01/16 05:35 05:35 05:35 WBC 8.6 RBC 4.06 Hgb 11.7 Hct 35.9 MCV 88.4 MCHC 32.5 RDW 14.8 Plt Count 217 MPV 8.4 D Neutrophils % 79.7 Lymphocytes % 12.7 Monocytes % 6.0 Eosinophils % 0.6 Basophils % 1.0 INR 3.84 H Puncture Site ABG pH ABG pCO2 at Pt Temp ABG pO2 at Pt Temp ABG HCO3 ABG O2 Sat (Measured) ABG O2 Content ABG Base Excess Khurram Test O2 Delivery Device Oxygen Flow Rate PEEP Sodium 136 Potassium 4.2 Chloride 103 Carbon Dioxide 23 Anion Gap 10 BUN 20 H Creatinine 1.2 H Creat Clearance w eGFR 43.56 POC Glucometer Random Glucose 212 H Calcium 9.1 Total Bilirubin 0.6 AST 23 D ALT 31 Alkaline Phosphatase 52 Creatine Kinase Troponin I Total Protein 6.5 Albumin 3.1 L TSH 1.55 D 09/01/16 09/01/16 09/01/16 12:05 13:40 15:34 WBC RBC Hgb Hct MCV MCHC RDW Plt Count MPV Neutrophils % Lymphocytes % Monocytes % Eosinophils % Basophils % INR Puncture Site Right radial ABG pH 7.41 ABG pCO2 at Pt Temp 33.8 L ABG pO2 at Pt Temp 75.6 ABG HCO3 20.7 L ABG O2 Sat (Measured) 95.3 ABG O2 Content 15.6 ABG Base Excess -2.8 L Khurram Test Positive O2 Delivery Device Venti mask Oxygen Flow Rate 40% PEEP 0.0 Sodium Potassium Chloride Carbon Dioxide Anion Gap BUN Creatinine Creat Clearance w eGFR POC Glucometer 92 184 Random Glucose Calcium Total Bilirubin AST ALT Alkaline Phosphatase Creatine Kinase Troponin I Total Protein Albumin TSH Active Medications Generic Name Dose Route Start Last Admin Trade Name Freq PRN Reason Stop Dose Admin Albuterol/Ipratropium 1 amp 08/31/16 19:58 09/01/16 12:44 Duoneb - NEB 1 amp Q6H PRN Administration SHORTNESS OF BREATH Atorvastatin Calcium 20 mg 08/31/16 22:00 08/31/16 21:28 Lipitor - PO 20 mg HS SERGEI Administration Chlorhexidine Gluconate 1 applic 09/01/16 22:00 Hibiclens For Decolonization - TP HS SERGEI Diltiazem HCl 120 mg 09/01/16 10:00 09/01/16 10:40 Cardizem Cd - PO 120 mg DAILY SERGEI Administration Furosemide 40 mg 09/01/16 10:00 09/01/16 10:41 Lasix - PO 40 mg DAILY SERGEI Administration Guaifenesin 5 ml 09/01/16 09:25 09/01/16 10:41 Robitussin - PO 5 ml Q6H PRN Administration COUGH Dextrose/Sodium Chloride 1,000 mls @ 75 mls/hr 08/31/16 20:00 08/31/16 21:21 D5-1/2ns - IV 75 mls/hr ASDIR SERGEI Administration Insulin Aspart 1 vial 08/31/16 22:00 09/01/16 12:37 Novolog Vial Sliding Scale - SQ Not Given ACHS [facility] Protocol Metformin HCl 500 mg 09/01/16 07:00 09/01/16 06:01 Glucophage - PO 500 mg BIDI SERGEI Administration Methylprednisolone Sodium Succinate 40 mg 09/01/16 14:30 09/01/16 16:29 Solu-Medrol - IVPB 40 mg Q8H-IV SERGEI Administration Mupirocin 1 applic 09/01/16 22:00 Bactroban Ointment (For Decolonization) - NS 09/06/16 21:59 BID SERGEI Sitagliptin Phosphate 50 mg 09/01/16 07:00 09/01/16 06:01 Januvia - PO 50 mg DAILY@0700 SERGEI Administration Sotalol HCl 80 mg 09/01/16 10:00 09/01/16 10:40 Betapace - PO 80 mg BID SERGEI Administration ASSESSMENT/PLAN: 76 year old female with PMH of Left breast cancer s/p lumpectomy and mastectomy (2000) with recurrence and mets to lung and bone, DVT, CAD, HTN, HLD, ascending thoracic aortic aneurysm, carotid stenosis, DM, CVA, Paroxysmal Atrial fibrillation who presented to ED with acute respiratory failure d/t paroxysmal A -fib overlying chronic diastolic CHF & lung mets. #Acute Respiratory Failure, in setting of Lung mets, chronic diastolic CHF, A- Fib w/ RVR -Lasix 40mg IVPUSH given -will continue diuresis tomorrow with Lasix 40mg IV BID -Solumedrol 40mg Q8H -Duonebs QIDR -CXR reviewed, repeat in AM -ABG in AM -Saturating well on ventimask 50%, keep O2 Sat >90% #Paroxysmal Atrial Fibrillation -rate controlled at present on Sotalol 80mg BID, Cardizem 120mg DAILY -anticoagulated on Coumadin, INR Currently supratherapeutic -will restart Coumadin once in therapeutic range again #HTN/HLD/CAD/Diastolic CHF Hx -diuresis, as above -continue Lipitor 20mg HS, Sotalol 80mg BID, Cardizem 120mg DAILY -ECHO reviewed -trend troponins -peterson placed for I & Os -cardiology consult appreciated #DVT Hx -continue Coumadin when INR becomes therapeutic (currently INR 3.84) #DM -holding oral meds: Metformin, Sitagliptin -ISS -BGM Prophylaxis/FEN -Will restart Coumadin once INR decreases (currently 3.84) -no PPI indicated -no IVF indicated -monitor electrolytes -Diabetic diet Dispo: We will continue to follow the patient. Thank you for this consultative opportunity. Visit type - Emergency Visit Emergency Visit: Yes ED Registration Date: 08/31/16 Care time: The patient presented to the Emergency Department on the above date and was hospitalized for further evaluation of their emergent condition. - New Patient This patient is new to me today: Yes Date on this admission: 09/02/16 - Critical Care Critical Care patient: Yes Total Critical Care Time (in minutes): 50 Critical Care Statement: The care of this patient involved high complexity decision making to prevent further life threatening deterioration of the patient 's condition and/or to evalute & treat vital organ system(s) failure or risk of failure.
[2016-09-01] MEDS ORDERED: ALBUTEROL SO4 2.5/IPRATROPIUM 0.5 INH SOL 3 ML VIAL.NEB. NEB ONE (17:13)
[2016-09-01] MEDS: FUROSEMIDE 40 MG/4 ML INJECTABLE VIAL IVPB SCH (18:00)
[2016-09-01] MEDS ORDERED: ENALAPRILAT DIHYDRATE 1.25 MG/1 ML VIAL IVPB ONE (18:10)
--- NOTE | 2016-09-01 19:07 | RAPID ---
Physical Examination Vital Signs: Vital Signs Temperature 98.0 F 09/01/16 18:00 Pulse Rate 89 09/01/16 18:00 Respiratory Rate 40 H 09/01/16 18:00 Blood Pressure 176/102 09/01/16 18:00 O2 Sat by Pulse Oximetry (%) 94 L 09/01/16 17:00 Labs: CBC, BMP 09/01/16 05:35 09/01/16 05:35 Rapid Response - Rapid Response Assessment: Rapid response was called in [facility] at 4:20pm 09/01/2016. Immediately went to assess the patient. Patient had shortness of breath. As per the RN, patient complained of shortness of breath several times this morning after which nebulization was given with temporary symptomatic relief. Dr. Allen was informed and he recommended to give IV Solumedrol 40mg stat, CXR portable stat and to transfer to the ICU. During the process of transferring the patient, she had shortness of breath and rapid response was called. On examination: Vitals: BP: 136/60; P-80 bpm; RR-22; Spo2-95 % in venti mask. GENERAL: Elderly female, sitting upright in bed, Awake, in mild respiratory distress, was able to speak few words. HEAD: Normal with no signs of trauma. EYES: EOM intact, no pallor or icterus. EARS, NOSE, THROAT: Ears normal, Moist mucous membranes. NECK: Supple. LUNGS: Breath sounds equal, scattered wheeze, bibasilar crackles, no accessory muscle use. HEART: Irregularly irregular, normal S1 and S2 with, grade 1 systolic murmur. ABDOMEN: Soft, nontender, not distended, normoactive bowel sounds, no guarding, no rebound, no masses. No hepatomegaly or splenomegaly. UPPER EXTREMITIES: 2+ pulses, warm, well-perfused. No cyanosis. No clubbing. No peripheral edema. LOWER EXTREMITIES: 2+ pulses, warm, well-perfused. No calf tenderness. No peripheral edema. NEUROLOGICAL: Spoke few words, speech clear, Gait not observed. PSYCHIATRIC: Cooperative. Good eye contact. SKIN: Warm, dry, normal turgor, no rashes or lesions noted, normal capillary refill. Patient was immediately transferred in the ICU. Case discussed with Dr. Dalton and Dr. Jimenez.
--- NOTE | 2016-09-01 20:14 | CONSULT ---
Consult Consult Specialty:: Pulm/CCM Reason for Consultation:: SOB, metastatic breast cancer - History of Present Illness History of Present Illness: This is a 76 yo woman HTN, HLD, DM, carotid stenosis, CVA w/ right sided weakness, DVT on coumadin with left sided breast CA s/p mastectomy (2000) with recurrence and metastatic disease: bone, lung currently on pallive chemo: fulvestrant qmonth, who has been largely wheelchair bound now presenting with progressive SOB, orthopnea and dry non-productive cough. Deneis: MULLINS, blurry vision, CP, fever, chills, n/v, diarrhea. In the ED she was found to have afib w / RVR t/w CCB and conversion to NSR. She had no signs of infection: WBC wnl, afebrile, normotensive. She was admitted to the floor. Initial CXR: left sided pleural disease with multiple nodules. ECHO showed severely reduced EF, RVSP: 30 -40. Cardiology was consulted and felt decreased EF likely tachycardia-induced cardiomyopathy. On day of ICU transfer an COREMAKER EXPERIMENTAL was called for SOB. CXR now with bilateral effusions. Lasix given. Solu-medrol given. In the ICU patient awake and alert with moderate SOB. ENT consulted and no signs of upper airway edema. BiPAP started with subjective improvement. BP: 150/90. HR NSR 80s. 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: CVA Cardio/Vascular: Yes: AFIB, CAD, HTN, Hyperlipdemia Pulmonary: Yes: Other (mets to lung) ...: No Musculoskeletal: Yes: Osteoarthritis Endocrine: Yes: Diabetes Mellitus, Other (Parathyroid adenoma) - Past Surgical History Past Surgical History: Yes: Mastectomy - Alcohol/Substance Use Hx Alcohol Use: No History of Substance Use: reports: None - Smoking History Smoking history: Former smoker Have you smoked in the past 12 months: No Aproximately how many cigarettes per day: 0 If you are a former smoker, when did you quit?: Over 30 years ago - Social History ADL: Family Assistance History of Recent Travel: No Home Medications - Allergies Allergies/Adverse Reactions: Allergies Allergy/AdvReac Type Severity Reaction Status Date / Time No Known Drug Allergies Allergy Verified 08/31/16 07:25 - Home Medications Home Medications: Ambulatory Orders Metformin HCl 500 mg PO BID 02/16/15 Amlodipine Besylate [Norvasc -] 5 mg PO DAILY #30 tablet 02/20/15 Furosemide [Lasix -] 40 mg PO DAILY #30 tablet 02/20/15 Simvastatin [Zocor -] 40 mg PO HS #30 tablet 02/20/15 Nebivolol HCl [Bystolic] 20 mg PO HS 05/07/15 Warfarin Na [Coumadin -] 6 mg PO DAILY #30 tablet 05/08/15 Glyburide [Diabeta -] 5 mg PO ASDIR 08/31/16 Olmesartan Medoxomil [Benicar (Nf)] 40 mg PO ASDIR 08/31/16 Sitagliptin Phosphate [Januvia] 50 mg PO DAILY 08/31/16 Family Disease History - Family Disease History Family History: Unremarkable Review of Systems - Review of Systems Constitutional: reports: Unintentional Wgt. Loss, Weakness Cardiovascular: reports: Palpitations, Shortness of Breath Respiratory: reports: Cough, Exercise Intolerance, SOB on Exertion Physical Exam Vital Signs: Vital Signs Temperature 98.0 F 09/01/16 18:00 Pulse Rate 89 09/01/16 18:00 Respiratory Rate 40 H 09/01/16 18:00 Blood Pressure 176/102 09/01/16 18:00 O2 Sat by Pulse Oximetry (%) 94 L 09/01/16 17:00 Current Medications Albuterol/Ipratropium (Duoneb -) 1 amp NEB Q6H PRN PRN Reason: SHORTNESS OF BREATH Last Admin: 09/01/16 12:44 Dose: 1 amp Atorvastatin Calcium (Lipitor -) 20 mg PO HS [facility] Last Admin: 09/01/16 22:16 Dose: 20 mg Carvedilol (Coreg -) 6.25 mg PO BID [facility] Last Admin: 09/01/16 22:16 Dose: 6.25 mg Chlorhexidine Gluconate (Hibiclens For Decolonization -) 1 applic TP HS [facility] Last Admin: 09/01/16 22:17 Dose: 1 applic Furosemide (Lasix Injection -) 40 mg IVPB BIDLASIX [facility] Last Admin: 09/01/16 18:00 Dose: Not Given Guaifenesin (Robitussin -) 5 ml PO Q6H PRN PRN Reason: COUGH Last Admin: 09/01/16 10:41 Dose: 5 ml Insulin Aspart (Novolog Vial Sliding Scale -) 1 vial SQ ACHS [facility] PRN Reason: Protocol Last Admin: 09/01/16 22:19 Dose: 6 units Methylprednisolone Sodium Succinate (Solu-Medrol -) 40 mg IVPB Q6H-IV [facility] Mupirocin (Bactroban Ointment (For Decolonization) -) 1 applic NS BID [facility] Stop: 09/06/16 21:59 Last Admin: 09/01/16 22:17 Dose: 1 applic Constitutional: Yes: Moderate Distress Eyes: Yes: EOM Intact Cardiovascular: Yes: Regular Rate and Rhythm, Murmur, S1, S2 Respiratory: Yes: On BiPap, Poor Air Entry (very diminished on left), Wheezes Gastrointestinal: Yes: Normal Bowel Sounds, Soft Edema: LLE: 1+, RLE: 1+ Neurological: Yes: Alert, Oriented Psychiatric: Yes: Oriented Labs: CBC, BMP 09/01/16 05:35 09/01/16 05:35 ABG Results ABG pH 7.41 (7.35-7.45) 09/01/16 13:40 ABG pCO2 at Pt Temp 33.8 mmHg (35-45) L 09/01/16 13:40 ABG pO2 at Pt Temp 75.6 mmHg (70-100) 09/01/16 13:40 ABG HCO3 20.7 meq/L (22-26) L 09/01/16 13:40 ABG O2 Sat (Measured) 95.3 % (90-98.9) 09/01/16 13:40 ABG O2 Content 15.6 % vol (15-22) 09/01/16 13:40 ABG Base Excess -2.8 meq/l (-2-2) L 09/01/16 13:40 Imaging - Results Chest X-ray: Report Reviewed, Image Reviewed Cat Scan: Report Reviewed, Image Reviewed EKG: Report Reviewed, Image Reviewed Problem List - Problems (1) Acute on chronic diastolic (congestive) heart failure Code(s): I50.33 - ACUTE ON CHRONIC DIASTOLIC (CONGESTIVE) HEART FAILURE (2) Atrial fibrillation with rapid ventricular response Code(s): I48.91 - UNSPECIFIED ATRIAL FIBRILLATION (3) Breast cancer Code(s): C50.919 - MALIGNANT NEOPLASM OF UNSP SITE OF UNSPECIFIED FEMALE BREAST Qualifiers: Breast location: unspecified site of breast Estrogen receptor status: positive Patient sex: female Laterality: right Qualified Code(s): C50.911 - Malignant neoplasm of unspecified site of right female breast; Z17.0 - Estrogen receptor positive status [ER+] (4) Chronic kidney disease (CKD) Code(s): N18.9 - CHRONIC KIDNEY DISEASE, UNSPECIFIED Qualifiers: Chronic kidney disease stage: stage 3 (moderate) Qualified Code(s): N18.3 - Chronic kidney disease, stage 3 (moderate) (5) Demand ischemia Code(s): I24.8 - OTHER FORMS OF ACUTE ISCHEMIC HEART DISEASE (6) Lung metastases Code(s): C78.00 - SECONDARY MALIGNANT NEOPLASM OF UNSPECIFIED LUNG (7) Metastatic breast cancer Code(s): C50.919 - MALIGNANT NEOPLASM OF UNSP SITE OF UNSPECIFIED FEMALE BREAST (8) Pleural effusion Code(s): J90 - PLEURAL EFFUSION, NOT ELSEWHERE CLASSIFIED (9) Shortness of breath Code(s): R06.02 - SHORTNESS OF BREATH Assessment/Plan a/p: 76 yo woman with metastatic breast CA: bone and lung with new onset afib w / RVR, systolic HF and SOB in the setting of worsening pulmonary edema and effusions plus progression of disease. No signs of infection at this time. -NIPPV for respiratory support -O2 for Sat >90% -lasix of O>I, peterson -cont steroids given wheeze on exam -nebs q6hr and prn -no ABX at this time, low threshold for HCAP coverage: zosyn/vanco -cont coumadin -cont rate control -I spoke with patient about goals of care re: intubation. She want to make herself DNI, there was some disagreement with her daughter who is HCP. We spoke about patient autonomy given her mother's ability to make her own decisions at this time. We spoke about given progression of disease w/ oncologic disease modifying therapy if intubated there was a significant chance extubation may prove difficult. The patient wanted to continue to speak with her daughter before making a decision about code status. -palliative care consult Leah HARLEY Pulm/CCM CCT: 45m
--- NOTE | 2016-09-01 20:23 | CON.ENT ---
Consult Consult Specialty:: ENT Referred by:: Dr. Allen Reason for Consultation:: respiratory distress, ?upper airway obstruction - History of Present Illness Chief Complaint: acute respiratory distress History of Present Illness: 76 yo F with multiple medical problems: Pt is a 76 y/o female with PMH significant for HTN, HLD, ascending thoracic aortic aneurysm, carotid stenosis, CVA (with residual right leg weakness; ambulates with a walker), DVT, Pafib, and left breast cancer (s/p lt mastectomy ) and mets to the lungs and bone, NIDDM and parathyroid adenoma. Pt presented to the ER bc of increasing dyspnea x few weeks although hard to get accurate history. Pt also has a cough wc is dry nonproductive. While in the ER pt found to have rapid AFib wc improved after IV hydration. had acute episode of respiratory distress th is afternoon, felt like her throat was closing, no prior throat problems rapid response called, transferred to ICU rx nebulizer, feeling better,states the swelling she felt is tgone breathing is more comfortable now, near baseline. 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 Cardio/Vascular: Yes: AFIB, CAD, HTN, Hyperlipdemia Pulmonary: Yes: Other (mets to lung) ...: No Musculoskeletal: Yes: Osteoarthritis Endocrine: Yes: Diabetes Mellitus, Other (Parathyroid adenoma) - Past Surgical History Past Surgical History: Yes: Mastectomy - Alcohol/Substance Use Hx Alcohol Use: No History of Substance Use: reports: None - Smoking History Smoking history: Former smoker Have you smoked in the past 12 months: No Aproximately how many cigarettes per day: 0 If you are a former smoker, when did you quit?: Over 30 years ago - Social History ADL: Family Assistance History of Recent Travel: No Home Medications - Allergies Allergies/Adverse Reactions: Allergies Allergy/AdvReac Type Severity Reaction Status Date / Time No Known Drug Allergies Allergy Verified 08/31/16 07:25 - Home Medications Home Medications: Ambulatory Orders Metformin HCl 500 mg PO BID 02/16/15 Amlodipine Besylate [Norvasc -] 5 mg PO DAILY #30 tablet 02/20/15 Furosemide [Lasix -] 40 mg PO DAILY #30 tablet 02/20/15 Simvastatin [Zocor -] 40 mg PO HS #30 tablet 02/20/15 Nebivolol HCl [Bystolic] 20 mg PO HS 05/07/15 Warfarin Na [Coumadin -] 6 mg PO DAILY #30 tablet 05/08/15 Glyburide [Diabeta -] 5 mg PO ASDIR 08/31/16 Olmesartan Medoxomil [Benicar (Nf)] 40 mg PO ASDIR 08/31/16 Sitagliptin Phosphate [Januvia] 50 mg PO DAILY 08/31/16 Family Disease History - Family Disease History Family Disease History: Other: Daughter (alive and well) Physical Exam-ENT Vital Signs: Vital Signs Temperature 98.0 F 09/01/16 18:00 Pulse Rate 89 09/01/16 18:00 Respiratory Rate 40 H 09/01/16 18:00 Blood Pressure 176/102 09/01/16 18:00 O2 Sat by Pulse Oximetry (%) 94 L 09/01/16 17:00 Constitutional: Yes: Calm, Mild Distress Head: Yes: WNL Face: Yes: WNL Eyes: Yes: WNL Nose: Yes: WNL Nasal Passage: Yes: WNL Oral/Pharynx: Yes: Other (missing teeth, tongue lips floor of mouth, soft palate and uvula NO edema, oropharyngeal airway patent, voice clear, NO stridor. has nebulizer treatment in progress) Outer Ear: Yes: WNL Imaging - Results Chest X-ray: Report Reviewed, Image Reviewed (acute shortness of breath, improving with treatment, symptoms improved, no obvious obstruction, defer laryngoscopy at present, continue present management, diet as tolerated Thank you for consultation) Problem List - Problems (1) Shortness of breath Assessment/Plan: markedly improved since acute episode responding well to nebulizer treatment reports resolution of the swelling sensation in her throat Recommend continue present management, ICU observation defer laryngoscopy for now as improved, receiving nebulizer treatment, Thank you for consultation, Mark Jean MD FACS Code(s): R06.02 - SHORTNESS OF BREATH
--- NOTE | 2016-09-01 20:44 | PN ---
Progress Note, Physician History of Present Illness: Rapid response called due to resp distress Pt transferred to ICU After speaking to daughter she stated that pt is basically wheelchair bound at home and has had worsening SOB over the past few weeks but did not tell anyone Pt also has had a dry nonproductive cough at home. - Current Medication List Current Medications: Active Medications Albuterol/Ipratropium (Duoneb -) 1 amp NEB Q6H PRN PRN Reason: SHORTNESS OF BREATH Last Admin: 09/01/16 12:44 Dose: 1 amp Atorvastatin Calcium (Lipitor -) 20 mg PO HS [facility] Last Admin: 08/31/16 21:28 Dose: 20 mg Carvedilol (Coreg -) 6.25 mg PO BID [facility] Chlorhexidine Gluconate (Hibiclens For Decolonization -) 1 applic TP HS [facility] Furosemide (Lasix Injection -) 40 mg IVPB BIDLASIX [facility] Last Admin: 09/01/16 18:00 Dose: Not Given Guaifenesin (Robitussin -) 5 ml PO Q6H PRN PRN Reason: COUGH Last Admin: 09/01/16 10:41 Dose: 5 ml Insulin Aspart (Novolog Vial Sliding Scale -) 1 vial SQ ACHS [facility] PRN Reason: Protocol Last Admin: 09/01/16 17:00 Dose: Not Given Methylprednisolone Sodium Succinate (Solu-Medrol -) 40 mg IVPB Q8H-IV [facility] Last Admin: 09/01/16 18:00 Dose: Not Given Mupirocin (Bactroban Ointment (For Decolonization) -) 1 applic NS BID [facility] Stop: 09/06/16 21:59 - Objective Vital Signs: Vital Signs Temperature 98.0 F 09/01/16 18:00 Pulse Rate 89 09/01/16 18:00 Respiratory Rate 40 H 09/01/16 18:00 Blood Pressure 176/102 09/01/16 18:00 O2 Sat by Pulse Oximetry (%) 94 L 09/01/16 17:00 Eyes: Yes: WNL HENT: Yes: WNL Neck: Yes: Supple Cardiovascular: Yes: WNL, Regular Rate and Rhythm Respiratory: Yes: Rales Gastrointestinal: Yes: WNL, Normal Bowel Sounds, Soft Musculoskeletal: Yes: Muscle Weakness Edema: LLE: Trace, RLE: Trace Labs: CBC, BMP 09/01/16 05:35 09/01/16 05:35 INR, PTT INR 3.84 (0.82-1.09) H 09/01/16 05:35 Problem List - Problems (1) Shortness of breath Assessment/Plan: Repeat cxr showed rt infiltrate There is a ? of levaquin allergy However no angioedema ID consult bc pt got dose of levaquin for today CHF vs lung mets vs infectious process Cont nebulizers/IV solumedrol As per pulmonary Pt is a full code Code(s): R06.02 - SHORTNESS OF BREATH (2) Atrial fibrillation with rapid ventricular response Assessment/Plan: Monitor on tele Heart rate controlled Coumadin on hold due to supratherapeutic pt/inr Cont to monitor Pt on Code(s): I48.91 - UNSPECIFIED ATRIAL FIBRILLATION (3) Acute on chronic diastolic (congestive) heart failure Assessment/Plan: BNP >12,000. Cont IV lasix Elevated troponin due to demand ischemia Code(s): I50.33 - ACUTE ON CHRONIC DIASTOLIC (CONGESTIVE) HEART FAILURE (4) Metastatic breast cancer Assessment/Plan: Will get onco consult Code(s): C50.919 - MALIGNANT NEOPLASM OF UNSP SITE OF UNSPECIFIED FEMALE BREAST (5) Diabetes Assessment/Plan: Cont sliding scale w/ coverage Code(s): E11.9 - TYPE 2 DIABETES MELLITUS WITHOUT COMPLICATIONS Qualifiers: Diabetes mellitus type: type 2 Diabetes mellitus complication status: without complication Diabetes mellitus mcfp insulin use: without mcfp use Qualified Code(s): E11.9 - Type 2 diabetes mellitus without complications (6) HTN (hypertension) Assessment/Plan: Cont coreg/lasix Code(s): I10 - ESSENTIAL (PRIMARY) HYPERTENSION Qualifiers: Hypertension type: essential hypertension Qualified Code(s): I10 - Essential (primary) hypertension (7) Hypercholesteremia Assessment/Plan: Cont lipitor Code(s): E78.0 - PURE HYPERCHOLESTEROLEMIA * DO NOT USE *
--- NOTE | 2016-09-01 21:23 | CONSULT ---
Consult - text type - Consultation Consultation Note: PAtient seen and examined This is a 76 yo woman HTN, HLD, DM, carotid stenosis, CVA w/ right sided weakness, DVT on coumadin with left sided breast CA s/p mastectomy (2000) with recurrence and metastatic disease: bone, lung currently on fulvestrant qmonth, who has been largely wheelchair bound now presenting with progressive SOB, orthopnea and dry non-productive cough. Initial CXR: left sided pleural disease with multiple nodules. ECHO showed severely reduced EF, RVSP: 30-40. Cardiology was consulted and felt decreased EF likely tachycardia-induced cardiomyopathy. 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 Cardio/Vascular: Yes: AFIB, CAD, HTN, Hyperlipdemia Pulmonary: Yes: Other (mets to lung) Musculoskeletal: Yes: Osteoarthritis Endocrine: Yes: Diabetes Mellitus, Other (Parathyroid adenoma) - Past Surgical History Past Surgical History: Yes: Mastectomy - Smoking History Smoking history: Former smoker Home Medications - Allergies Allergies/Adverse Reactions: Allergies Allergy/AdvReac Type Severity Reaction Status Date / Time No Known Drug Allergies Allergy Verified 08/31/16 07:25 - Home Medications Home Medications: Ambulatory Orders Metformin HCl 500 mg PO BID 02/16/15 Amlodipine Besylate [Norvasc -] 5 mg PO DAILY #30 tablet 02/20/15 Furosemide [Lasix -] 40 mg PO DAILY #30 tablet 02/20/15 Simvastatin [Zocor -] 40 mg PO HS #30 tablet 02/20/15 Nebivolol HCl [Bystolic] 20 mg PO HS 05/07/15 Warfarin Na [Coumadin -] 6 mg PO DAILY #30 tablet 05/08/15 Glyburide [Diabeta -] 5 mg PO ASDIR 08/31/16 Olmesartan Medoxomil [Benicar (Nf)] 40 mg PO ASDIR 08/31/16 Sitagliptin Phosphate [Januvia] 50 mg PO DAILY 08/31/16 current meds Albuterol/Ipratropium (Duoneb -) 1 amp NEB Q6H PRN PRN Reason: SHORTNESS OF BREATH Last Admin: 09/01/16 12:44 Dose: 1 amp Atorvastatin Calcium (Lipitor -) 20 mg PO HS [facility] Last Admin: 09/01/16 22:16 Dose: 20 mg Carvedilol (Coreg -) 6.25 mg PO BID [facility] Last Admin: 09/01/16 22:16 Dose: 6.25 mg Chlorhexidine Gluconate (Hibiclens For Decolonization -) 1 applic TP HS [facility] Last Admin: 09/01/16 22:17 Dose: 1 applic Furosemide (Lasix Injection -) 40 mg IVPB BIDLASIX [facility] Last Admin: 09/01/16 18:00 Dose: Not Given Guaifenesin (Robitussin -) 5 ml PO Q6H PRN PRN Reason: COUGH Last Admin: 09/01/16 10:41 Dose: 5 ml Insulin Aspart (Novolog Vial Sliding Scale -) 1 vial SQ ACHS [facility] PRN Reason: Protocol Last Admin: 09/01/16 22:19 Dose: 6 units Methylprednisolone Sodium Succinate (Solu-Medrol -) 40 mg IVPB Q6H-IV [facility] Mupirocin (Bactroban Ointment (For Decolonization) -) 1 applic NS BID [facility] Stop: 09/06/16 21:59 Last Admin: 09/01/16 22:17 Dose: 1 applic Vital Signs Temperature 98.0 F 09/01/16 18:00 Pulse Rate 89 09/01/16 18:00 Respiratory Rate 40 H 09/01/16 18:00 Blood Pressure 176/102 09/01/16 18:00 O2 Sat by Pulse Oximetry (%) 94 L 09/01/16 17:00 Constitutional: Yes: Moderate Distress Cardiovascular: Yes: Regular Rate and Rhythm, Murmur, S1, S2 Respiratory: Yes: On BiPap, Poor Air Entry (very diminished on left), Wheezes Gastrointestinal: Yes: Normal Bowel Sounds, Soft Edema: LLE: 1+, RLE: 1+ Neurological: Yes: Alert, Oriented Imaging - Results Chest X-ray: Report Reviewed, Image Reviewed Cat Scan: Report Reviewed, Image Reviewed EKG: Report Reviewed, Image Reviewed Assessment/Plan 76 y/o patient with metastatic breast cancer, on faslodex, now with worsening shortness of breath, rapid afib, transferred to icu for shortness of breath currently on bipap on steroids/lasix most likely with progressive disease will discuss with dr. conway primary oncologist
[2016-09-01] MEDS: CARVEDILOL 6.25 MG TABLET (FP) PO SCH (22:16)
[2016-09-01] MEDS: ATORVASTATIN CA 20 MG TABLET (FP) PO SCH (22:16)
[2016-09-01] MEDS: CHLORHEXIDINE GLUCONATE 4% CLEANSER FOR DECOLONIZATION TP SCH (22:17)
[2016-09-01] MEDS: MUPIROCIN 2% TOPICAL OINTMENT FOR DECOLONIZATION NS SCH (22:17)
[2016-09-01 23:49] LABS: TROPONIN I 0.22 ng/ml (0.00-0.05)
[2016-09-02] MEDS: methylPREDNISolone NA SUCC 40 MG/1 ML VIAL IVPB SCH ×3 (03:14→21:32)
[2016-09-02 06:16] LABS: BASOPHIL 0.2 % (0-2.0); MCH 28.3 pg (25.7-33.7); MCHC 32.1 g/dl (32.0-36.0); MEAN CELL VOLUME 88.2 fl (80-96); MEAN PLT VOLUME 8.2 fl (7.5-11.1); PLATELET COUNT 251 K/MM3 (134-434); RDW 14.5 % (11.6-15.6); WHITE BLOOD COUNT 7.5 K/mm3 (4.0-10.0)
[2016-09-02 06:25] LABS: INR 3.8 (0.82-1.09)
[2016-09-02 06:30] LABS: ALBUMIN 3.1 g/dl (3.4-5.0); BILIRUBIN,TOTAL 0.6 mg/dL (0.2-1.0); CALCIUM 9.4 mg/dL (8.5-10.1); CREATININE 1.4 mg/dL (0.55-1.02); MAGNESIUM 2.1 mg/dL (1.8-2.4); PHOSPHOROUS 3.4 mg/dL (2.5-4.9); TOT PROT 6.6 g/dl (6.4-8.2)
[2016-09-02 06:31] LABS: TROPONIN I 0.23 ng/ml (0.00-0.05)
[2016-09-02] MEDS: FUROSEMIDE 40 MG/4 ML INJECTABLE VIAL IVPB SCH ×2 (06:47→14:01)
[2016-09-02] MEDS: INSULIN SLIDING SCALE (NOVOLOG) 1 VIAL SQ SCH ×4 (06:54→21:33)
[2016-09-02 06:57] LABS: COCKROFT - GAULT 45.917
[2016-09-02 07:38] LABS: ALLENS TEST POSITIVE; ART PUNCT SITE RIGHT RADIAL; ARTERIAL BLD GAS O2 SATURATION 98.4 % (90-98.9); ARTERIAL BLOOD GAS BASE EXCESS -0.9 meq/l (-2-2); ARTERIAL BLOOD GAS HCO3 23.3 meq/L (22-26); ARTERIAL BLOOD GAS pH 7.39 (7.35-7.45); LPM/O2% 50%; MECH. VENT. BIPAP; PT. ON O2? YES; TYPE OF O2 BIPAP
[2016-09-02 07:39] LABS: VENT RATE 20
--- NOTE | 2016-09-02 07:54 | CONSULT ---
Consultation: REQUESTING PROVIDER: CONSULT REQUEST: We have been asked to medically evaluate this patient for (ID). HISTORY OF PRESENT ILLNESS:History obtained from previous notes as patient feels tired as not telling a whole history. Patient is a 76 year old female with PMH of Left breast cancer s/p lumpectomy and mastectomy (2000) with recurrence and mets to lung and bone, DVT, CAD, HTN, HLD, ascending thoracic aortic aneurysm, carotid stenosis, DM, CVA, Paroxysmal Atrial fibrillation who presented to ED with progressive dyspnea on exertion, cough and decreased exercise capacity. She stated she had a chronic cough since cancer came back, but it has worsened in last 3 days so she decided to call EMS. Patient denied any chest pain or palpitations. In ED Found to be in Atrial Fibrillation with RVR 130-140s got cardiazem. Patient was given Cardizem 30mg with return to Sinus rhythm. She was admitted to telemetry for A-fib w/ RVR with concurrent pleural effusion. Rapid response was called this afternoon. Patient had reported to nurse that she was having difficulty breathing. Oxygen saturation was >95% but patient distress warranted transfer to ICU. Lasix 40mg IVPUSH given in ICU. Patient is on BIPAP, maintaining a saturation of 95- 97 % states breathing has improved denies fever and chills. wbc in normal limit. CXR shows plural effusion L> R, has h/o lung and bone mets. REVIEW OF SYSTEMS: CONSTITUTIONAL: Absent: fever, chills, HEENT: Absent: rhinorrhea, nasal congestion, cvs: s1s2 normal, murmur+ RESPIRATORY: Absent: cough, shortness of breath, dyspnea with exertion, orthopnea, GASTROINTESTINAL: Absent: abdominal pain, abdominal distension, nausea, vomiting, PHYSICAL EXAMINATION Vital Signs - 24 hr 09/01/16 09/01/16 09/01/16 08:55 10:00 13:10 Temperature 98.0 F Pulse Rate 83 84 Respiratory 20 28 H Rate Blood Pressure 123/76 156/84 O2 Sat by Pulse 94 L Oximetry (%) 09/01/16 09/01/16 09/01/16 13:50 16:10 17:00 Temperature 98.1 F Pulse Rate 77 86 90 Respiratory 28 H 40 H Rate Blood Pressure 138/70 207/117 O2 Sat by Pulse 97 94 L Oximetry (%) 05/09/01/16 09/01/16 18:00 21:00 22:00 Temperature 98.0 F Pulse Rate 89 84 Respiratory 40 H 40 H 26 H Rate Blood Pressure 176/102 150/108 O2 Sat by Pulse 94 L 98 Oximetry (%) 09/02/16 09/02/16 09/02/16 00:00 02:00 04:00 Temperature 98.2 F Pulse Rate 80 86 77 Respiratory 19 20 21 Rate Blood Pressure 82/61 106/73 101/59 O2 Sat by Pulse 97 Oximetry (%) 09/02/16 09/02/16 09/02/16 05:00 06:00 07:36 Temperature Pulse Rate 74 Respiratory 20 Rate Blood Pressure 129/94 O2 Sat by Pulse 100 99 Oximetry (%) 09/02/16 09/02/16 07:43 07:44 Temperature Pulse Rate Respiratory 20 20 Rate Blood Pressure 125/92 O2 Sat by Pulse 99 Oximetry (%) GENERAL: Awake, alert, and fully oriented, HEAD: Normal with no signs of trauma. NECK: Normal range of motion, , JVD + LUNGS: breath sounds decraesd on left side, b/l inspirator crepts present l> R, no wheezing HEART: s1s2 normal ABDOMEN: Soft, nontender, not distended, . UPPER EXTREMITIES: 2+ pulses warm, No cyanosis. LOWER EXTREMITIES: No calf tenderness. No peripheral edema. skin wrinkled SKIN: Warm, dry, Laboratory Results - last 24 hr 09/01/16 09/01/16 09/01/16 12:05 13:40 15:34 WBC RBC Hgb Hct MCV MCHC RDW Plt Count MPV Neutrophils % Lymphocytes % Monocytes % Eosinophils % Basophils % INR Puncture Site Right radial ABG pH 7.41 ABG pCO2 at Pt Temp 33.8 L ABG pO2 at Pt Temp 75.6 ABG HCO3 20.7 L ABG O2 Sat (Measured) 95.3 ABG O2 Content 15.6 ABG Base Excess -2.8 L Khurram Test Positive O2 Delivery Device Venti mask Oxygen Flow Rate 40% Vent Mode Vent Rate Mechanical Rate PEEP 0.0 Pressure Support Vent Sodium Potassium Chloride Carbon Dioxide Anion Gap BUN Creatinine Creat Clearance w eGFR POC Glucometer 92 184 Random Glucose Calcium Phosphorus Magnesium Total Bilirubin AST ALT Alkaline Phosphatase Creatine Kinase Troponin I Total Protein Albumin 09/01/16 09/01/16 09/02/16 21:59 23:10 05:20 WBC RBC Hgb Hct MCV MCHC RDW Plt Count MPV Neutrophils % Lymphocytes % Monocytes % Eosinophils % Basophils % INR 3.80 H Puncture Site ABG pH ABG pCO2 at Pt Temp ABG pO2 at Pt Temp ABG HCO3 ABG O2 Sat (Measured) ABG O2 Content ABG Base Excess Khurram Test O2 Delivery Device Oxygen Flow Rate Vent Mode Vent Rate Mechanical Rate PEEP Pressure Support Vent Sodium Potassium Chloride Carbon Dioxide Anion Gap BUN Creatinine Creat Clearance w eGFR POC Glucometer [phone] Random Glucose Calcium Phosphorus Magnesium Total Bilirubin AST ALT Alkaline Phosphatase Creatine Kinase 98 Troponin I 0.22 H Total Protein Albumin 09/02/16 09/02/16 09/02/16 05:20 05:20 05:20 WBC 7.5 RBC 4.27 Hgb 12.1 Hct 37.6 MCV 88.2 MCHC 32.1 RDW 14.5 Plt Count 251 MPV 8.2 Neutrophils % 88.0 H Lymphocytes % 9.5 D Monocytes % 2.3 L Eosinophils % 0.0 D Basophils % 0.2 INR Puncture Site ABG pH ABG pCO2 at Pt Temp ABG pO2 at Pt Temp ABG HCO3 ABG O2 Sat (Measured) ABG O2 Content ABG Base Excess Khurram Test O2 Delivery Device Oxygen Flow Rate Vent Mode Vent Rate Mechanical Rate PEEP Pressure Support Vent Sodium 135 L Potassium 4.7 Chloride 98 Carbon Dioxide 29 D Anion Gap 8 BUN 27 H D Creatinine 1.4 H Creat Clearance w eGFR 36.46 POC Glucometer Random Glucose 151 H D Calcium 9.4 Phosphorus 3.4 Magnesium 2.1 Total Bilirubin 0.6 AST 22 ALT 32 Alkaline Phosphatase 53 Creatine Kinase 92 Troponin I 0.23 H Total Protein 6.6 Albumin 3.1 L 09/02/16 07:15 WBC RBC Hgb Hct MCV MCHC RDW Plt Count MPV Neutrophils % Lymphocytes % Monocytes % Eosinophils % Basophils % INR Puncture Site Right radial ABG pH 7.39 ABG pCO2 at Pt Temp 39.2 ABG pO2 at Pt Temp 107.0 H D ABG HCO3 23.3 ABG O2 Sat (Measured) 98.4 ABG O2 Content 16.9 ABG Base Excess -0.9 Khurram Test Positive O2 Delivery Device Bipap Oxygen Flow Rate 50% Vent Mode S/t Vent Rate 20 Mechanical Rate Bipap PEEP 0.0 Pressure Support Vent 12/6 Sodium Potassium Chloride Carbon Dioxide Anion Gap BUN Creatinine Creat Clearance w eGFR POC Glucometer Random Glucose Calcium Phosphorus Magnesium Total Bilirubin AST ALT Alkaline Phosphatase Creatine Kinase Troponin I Total Protein Albumin Active Medications Generic Name Dose Route Start Last Admin Trade Name Freq PRN Reason Stop Dose Admin Albuterol/Ipratropium 1 amp 08/31/16 19:58 09/01/16 12:44 Duoneb - NEB 1 amp Q6H PRN Administration SHORTNESS OF BREATH Atorvastatin Calcium 20 mg 08/31/16 22:00 09/01/16 22:16 Lipitor - PO 20 mg HS SERGEI Administration Carvedilol 6.25 mg 09/01/16 22:00 09/01/16 22:16 Coreg - PO 6.25 mg BID SERGEI Administration Chlorhexidine Gluconate 1 applic 09/01/16 22:00 09/01/16 22:17 Hibiclens For Decolonization - TP 1 applic HS SERGEI Administration Furosemide 40 mg 09/01/16 18:00 09/02/16 06:47 Lasix Injection - IVPB 40 mg BIDLASIX SERGEI Administration Guaifenesin 5 ml 09/01/16 09:25 09/01/16 10:41 Robitussin - PO 5 ml Q6H PRN Administration COUGH Insulin Aspart 1 vial 08/31/16 22:00 09/02/16 06:54 Novolog Vial Sliding Scale - SQ 2 units ACHS SERGEI Administration Protocol Methylprednisolone Sodium Succinate 40 mg 09/02/16 03:00 09/02/16 03:14 Solu-Medrol - IVPB 40 mg Q6H-IV SERGEI Administration Mupirocin 1 applic 09/01/16 22:00 09/01/16 22:17 Bactroban Ointment (For Decolonization) - NS 09/06/16 21:59 1 applic BID SERGEI Administration Microbiology 08/31/16 09:15 Blood - [facility] Cath Blood Culture - Preliminary NO GROWTH OBTAINED AFTER 24 HOURS, INCUBATION TO CONTINUE FOR 4 DAYS. 08/31/16 08:22 Blood - [facility] Cath Blood Culture - Preliminary NO GROWTH OBTAINED AFTER 24 HOURS, INCUBATION TO CONTINUE FOR 4 DAYS. ECHO: sever LV systolic dysfunction, global hypokinesia of LV cxr: the bilateral pulmonary and pleural changes have increased on the right and remain relatively stable on the left. Again noted is the large heart with unfolded aorta, right jugular line and external monitors. There is a sclerotic unfolded aorta. Impression : slight change since prior study. CT 08/12/16 1. Extensive nodular pleural thickening throughout the left hemithorax contiguous with the mediastinum. This is consistent with metastatic disease and essentially unchanged since 07/28/2016. 2. Diffuse right lung nodularity also consistent with metastatic disease and also unchanged. 3. No significant change in anterior chest wall mass also consistent with a metastatic lesion. 4. No evidence of metastatic disease or acute pathology within the abdomen or pelvis. Please see above discussion. ASSESSMENT/PLAN: 76 y/o female with metastatic lung cancer with chf with b/l plural effusion with acute hypoxic respiratory failure afebrile, denies fever and chills. blood culture no growth. wbc in normal limit patient on solumedrol, nebulizer got one dose of levaquin in ed Plan sob could be from b/l plural effusion which could be from mets/ chf. Less likely from infection as patient is afebrile, wbc in normal limit. oxygen to maintain spo2. will monitor her off antibiotics Dispo: We will continue to follow the patient. Thank you for this consultative opportunity. Visit type - Emergency Visit Emergency Visit: Yes ED Registration Date: 08/31/16 Care time: The patient presented to the Emergency Department on the above date and was hospitalized for further evaluation of their emergent condition. - New Patient This patient is new to me today: Yes Date on this admission: 09/02/16 - Critical Care Critical Care patient: Yes Total Critical Care Time (in minutes): 45 Critical Care Statement: The care of this patient involved high complexity decision making to prevent further life threatening deterioration of the patient 's condition and/or to evalute & treat vital organ system(s) failure or risk of failure.
[2016-09-02] MEDS ORDERED: PT OWN MED DRAWER 7, Y5N ONE (08:24)
--- NOTE | 2016-09-02 08:25 | PN ---
Physical Exam: SUBJECTIVE: Patient seen and examined at bedside in ICU this AM. AAO and in pleasant mood. States she feels much better & breathign is much less strenuous than yesterday. Acknowledges that anxiety & stress played a big part in dyspneic episode yesterday. Afebrile overnight with stable vitals. BP much better controlled. OBJECTIVE: Vital Signs Period Temp Pulse Resp BP Sys/Krause Pulse Ox Last 24 Hr 98.0 F-98.2 F 74-90 19-40 82-207/59-117 94-100 GENERAL: Awake, alert, and fully oriented, in no acute distress. Resting in bed comfortably with ventimask on. HEENT: Atraumatic, EOMI, PERRLA, No lymphadenopathy noted, moist membranes LUNGS: Moderately diminished breath sounds Left lower lung extending to left middle lung; mildly diminished breath sounds right lower lung; bibasilar crackles noted; no wheezing or stridor in either lung HEART: Regular rate and rhythm, S1 and S2 ABDOMEN: Soft, nontender, not distended, normoactive bowel sounds, no guarding, no rebound UPPER EXTREMITIES: 2+ pulses, warm, well-perfused. No cyanosis. No clubbing. Cap refill <2 seconds. No peripheral edema. LOWER EXTREMITIES: 2+ pulses, warm, well-perfused. No calf tenderness. +1 bilateral lower extremity edema noted NEUROLOGICAL: Cranial nerves II-XII intact. Normal gait. PSYCHIATRIC: Cooperative. Good eye contact. Appropriate mood and affect. SKIN: Warm, dry, normal turgor, no rashes or lesions noted. Laboratory Results - last 24 hr 09/01/16 09/01/16 09/01/16 12:05 13:40 15:34 WBC RBC Hgb Hct MCV MCHC RDW Plt Count MPV Neutrophils % Lymphocytes % Monocytes % Eosinophils % Basophils % INR Puncture Site Right radial ABG pH 7.41 ABG pCO2 at Pt Temp 33.8 L ABG pO2 at Pt Temp 75.6 ABG HCO3 20.7 L ABG O2 Sat (Measured) 95.3 ABG O2 Content 15.6 ABG Base Excess -2.8 L Khurram Test Positive O2 Delivery Device Venti mask Oxygen Flow Rate 40% Vent Mode Vent Rate Mechanical Rate PEEP 0.0 Pressure Support Vent Sodium Potassium Chloride Carbon Dioxide Anion Gap BUN Creatinine Creat Clearance w eGFR POC Glucometer 92 184 Random Glucose Calcium Phosphorus Magnesium Total Bilirubin AST ALT Alkaline Phosphatase Creatine Kinase Troponin I Total Protein Albumin 09/01/16 09/01/16 09/02/16 21:59 23:10 05:20 WBC RBC Hgb Hct MCV MCHC RDW Plt Count MPV Neutrophils % Lymphocytes % Monocytes % Eosinophils % Basophils % INR 3.80 H Puncture Site ABG pH ABG pCO2 at Pt Temp ABG pO2 at Pt Temp ABG HCO3 ABG O2 Sat (Measured) ABG O2 Content ABG Base Excess Khurram Test O2 Delivery Device Oxygen Flow Rate Vent Mode Vent Rate Mechanical Rate PEEP Pressure Support Vent Sodium Potassium Chloride Carbon Dioxide Anion Gap BUN Creatinine Creat Clearance w eGFR POC Glucometer [phone] Random Glucose Calcium Phosphorus Magnesium Total Bilirubin AST ALT Alkaline Phosphatase Creatine Kinase 98 Troponin I 0.22 H Total Protein Albumin 09/02/16 09/02/16 09/02/16 05:20 05:20 05:20 WBC 7.5 RBC 4.27 Hgb 12.1 Hct 37.6 MCV 88.2 MCHC 32.1 RDW 14.5 Plt Count 251 MPV 8.2 Neutrophils % 88.0 H Lymphocytes % 9.5 D Monocytes % 2.3 L Eosinophils % 0.0 D Basophils % 0.2 INR Puncture Site ABG pH ABG pCO2 at Pt Temp ABG pO2 at Pt Temp ABG HCO3 ABG O2 Sat (Measured) ABG O2 Content ABG Base Excess Khurram Test O2 Delivery Device Oxygen Flow Rate Vent Mode Vent Rate Mechanical Rate PEEP Pressure Support Vent Sodium 135 L Potassium 4.7 Chloride 98 Carbon Dioxide 29 D Anion Gap 8 BUN 27 H D Creatinine 1.4 H Creat Clearance w eGFR 36.46 POC Glucometer Random Glucose 151 H D Calcium 9.4 Phosphorus 3.4 Magnesium 2.1 Total Bilirubin 0.6 AST 22 ALT 32 Alkaline Phosphatase 53 Creatine Kinase 92 Troponin I 0.23 H Total Protein 6.6 Albumin 3.1 L 09/02/16 07:15 WBC RBC Hgb Hct MCV MCHC RDW Plt Count MPV Neutrophils % Lymphocytes % Monocytes % Eosinophils % Basophils % INR Puncture Site Right radial ABG pH 7.39 ABG pCO2 at Pt Temp 39.2 ABG pO2 at Pt Temp 107.0 H D ABG HCO3 23.3 ABG O2 Sat (Measured) 98.4 ABG O2 Content 16.9 ABG Base Excess -0.9 Khurram Test Positive O2 Delivery Device Bipap Oxygen Flow Rate 50% Vent Mode S/t Vent Rate 20 Mechanical Rate Bipap PEEP 0.0 Pressure Support Vent 12/6 Sodium Potassium Chloride Carbon Dioxide Anion Gap BUN Creatinine Creat Clearance w eGFR POC Glucometer Random Glucose Calcium Phosphorus Magnesium Total Bilirubin AST ALT Alkaline Phosphatase Creatine Kinase Troponin I Total Protein Albumin Active Medications Generic Name Dose Route Start Last Admin Trade Name Freq PRN Reason Stop Dose Admin Albuterol/Ipratropium 1 amp 08/31/16 19:58 09/01/16 12:44 Duoneb - NEB 1 amp Q6H PRN Administration SHORTNESS OF BREATH Atorvastatin Calcium 20 mg 08/31/16 22:00 09/01/16 22:16 Lipitor - PO 20 mg HS SERGEI Administration Carvedilol 6.25 mg 09/01/16 22:00 09/02/16 10:24 Coreg - PO 6.25 mg BID SERGEI Administration Chlorhexidine Gluconate 1 applic 09/01/16 22:00 09/01/16 22:17 Hibiclens For Decolonization - TP 1 applic HS SERGEI Administration Furosemide 40 mg 09/01/16 18:00 09/02/16 06:47 Lasix Injection - IVPB 40 mg BIDLASIX SERGEI Administration Guaifenesin 5 ml 09/01/16 09:25 09/01/16 10:41 Robitussin - PO 5 ml Q6H PRN Administration COUGH Insulin Aspart 1 vial 08/31/16 22:00 09/02/16 06:54 Novolog Vial Sliding Scale - SQ 2 units ACHS SERGIE Administration Protocol Methylprednisolone Sodium Succinate 40 mg 09/02/16 11:15 Solu-Medrol - IVPB Q12H SERGEI Mupirocin 1 applic 09/01/16 22:00 09/02/16 10:23 Bactroban Ointment (For Decolonization) - NS 09/06/16 21:59 1 applic BID SERGEI Administration ASSESSMENT/PLAN: 76 year old female with PMH of Left breast cancer s/p lumpectomy and mastectomy (2000) with recurrence and mets to lung and bone, DVT, CAD, HTN, HLD, ascending thoracic aortic aneurysm, carotid stenosis, DM, CVA, Paroxysmal Atrial fibrillation who presented to ED with acute respiratory failure d/t paroxysmal A -fib overlying chronic diastolic CHF & lung mets. #Acute Respiratory Failure, in setting of Lung mets, chronic diastolic CHF, A- Fib w/ RVR -diuresis with Lasix 40mg IV BID -Solumedrol 40mg Q12h -Duonebs QIDR -CXR reviewed, repeat in AM -ABG reviewed -Saturating well on ventimask 50%, keep O2 Sat >90% (was on Bipap overnight) #Paroxysmal Atrial Fibrillation -rate controlled at present on Coreg 6.25mg BID -anticoagulated at home on Coumadin, INR Currently supratherapeutic -will restart Coumadin once in therapeutic range again #HTN/HLD/CAD/Diastolic CHF Hx -diuresis, as above -Lipitor 20mg HS & rate control, as above -ECHO reviewed -trend troponins -I & Os, weights -cardiology consult appreciated #DVT Hx -continue Coumadin when INR becomes therapeutic (currently INR 3.84) #DM -holding oral meds: Metformin, Sitagliptin -ISS -BGM Prophylaxis/FEN -Will restart Coumadin once INR decreases (currently 3.84) -no PPI indicated -no IVF indicated -monitor electrolytes -Diabetic diet Dispo: We will continue to follow the patient. Thank you for this consultative opportunity. Visit type - Emergency Visit Emergency Visit: Yes ED Registration Date: 08/31/16 Care time: The patient presented to the Emergency Department on the above date and was hospitalized for further evaluation of their emergent condition. - New Patient This patient is new to me today: No - Critical Care Critical Care patient: Yes Total Critical Care Time (in minutes): 45 Critical Care Statement: The care of this patient involved high complexity decision making to prevent further life threatening deterioration of the patient 's condition and/or to evalute & treat vital organ system(s) failure or risk of failure.
--- NOTE | 2016-09-02 09:07 | PN ---
Teaching Attending Note Name of Resident: Clay Allred ATTENDING PHYSICIAN STATEMENT I saw and evaluated the patient. I reviewed the resident's note and discussed the case with the resident. I agree with the resident's findings and plan as documented. SUBJECTIVE:Case reviewed brought to ICU with respiratory failure Lethargic on BIPAP OBJECTIVE:Lung Rales Diminished Cor S1 S2 RR Grade 2/6 systolic mrmur Abd Soft nontender Ext No edema cyanosis ASSESSMENT AND PLAN: Microbiology 08/31/16 09:15 Blood - [facility] Cath Blood Culture - Preliminary NO GROWTH OBTAINED AFTER 24 HOURS, INCUBATION TO CONTINUE FOR 4 DAYS. 08/31/16 08:22 Blood - [facility] Cath Blood Culture - Preliminary NO GROWTH OBTAINED AFTER 24 HOURS, INCUBATION TO CONTINUE FOR 4 DAYS. Laboratory Tests 09/02/16 09/02/16 09/02/16 05:20 05:20 07:15 WBC 7.5 Plt Count 251 Neutrophils % 88.0 H Lymphocytes % 9.5 D Monocytes % 2.3 L ABG pH 7.39 ABG pCO2 at Pt Temp 39.2 Oxygen Flow Rate 50% BUN 27 H D Creatinine 1.4 H Creat Clearance w eGFR 36.46 Assessment Respiratory failure ? Component of heart failure Metastatic breast CA with pulmonary and bone mets Doubt infection sepsis Plan At this point no antibiotics required Consider need for continued steroids ? 45 minutes spent reviewing chart alex resident critical care time Waleska C[place] Problem List - Problems (1) Acute on chronic diastolic (congestive) heart failure Code(s): I50.33 - ACUTE ON CHRONIC DIASTOLIC (CONGESTIVE) HEART FAILURE (2) Atrial fibrillation with rapid ventricular response Code(s): I48.91 - UNSPECIFIED ATRIAL FIBRILLATION (3) Metastatic breast cancer Code(s): C50.919 - MALIGNANT NEOPLASM OF UNSP SITE OF UNSPECIFIED FEMALE BREAST (4) Respiratory failure Code(s): J96.90 - RESPIRATORY FAILURE, UNSP, UNSP W HYPOXIA OR HYPERCAPNIA
[2016-09-02] MEDS: MUPIROCIN 2% TOPICAL OINTMENT FOR DECOLONIZATION NS SCH ×2 (10:23→21:32)
[2016-09-02] MEDS: CARVEDILOL 6.25 MG TABLET (FP) PO SCH (10:24)
--- NOTE | 2016-09-02 11:32 | PN ---
Progress Note, Physician History of Present Illness: Dyspnea and O2 requirement improving with significant diuresis, bipap overnight , currently on 40% VM. - Current Medication List Current Medications: Active Medications Albuterol/Ipratropium (Duoneb -) 1 amp NEB Q6H PRN PRN Reason: SHORTNESS OF BREATH Last Admin: 09/01/16 12:44 Dose: 1 amp Atorvastatin Calcium (Lipitor -) 20 mg PO HS [facility] Last Admin: 09/01/16 22:16 Dose: 20 mg Carvedilol (Coreg -) 6.25 mg PO BID SERGEI Last Admin: 09/02/16 10:24 Dose: 6.25 mg Chlorhexidine Gluconate (Hibiclens For Decolonization -) 1 applic TP HS [facility] Last Admin: 09/01/16 22:17 Dose: 1 applic Furosemide (Lasix Injection -) 40 mg IVPB BIDLASIX [facility] Last Admin: 09/02/16 06:47 Dose: 40 mg Guaifenesin (Robitussin -) 5 ml PO Q6H PRN PRN Reason: COUGH Last Admin: 09/01/16 10:41 Dose: 5 ml Insulin Aspart (Novolog Vial Sliding Scale -) 1 vial SQ ACHS SERGEI PRN Reason: Protocol Last Admin: 09/02/16 06:54 Dose: 2 units Methylprednisolone Sodium Succinate (Solu-Medrol -) 40 mg IVPB Q12H SERGEI Mupirocin (Bactroban Ointment (For Decolonization) -) 1 applic NS BID [facility] Stop: 09/06/16 21:59 Last Admin: 09/02/16 10:23 Dose: 1 applic - Objective Vital Signs: Vital Signs Temperature 98.4 F 09/02/16 10:00 Pulse Rate 86 09/02/16 10:00 Respiratory Rate 34 H 09/02/16 10:00 Blood Pressure 131/69 09/02/16 10:00 O2 Sat by Pulse Oximetry (%) 100 09/02/16 11:12 Constitutional: Yes: No Distress, Calm Neck: Yes: Supple Cardiovascular: Yes: Regular Rate and Rhythm, Murmur (2/6 SM) Respiratory: Yes: Regular, Diminished, On Venti-Mask Gastrointestinal: Yes: Normal Bowel Sounds, Soft Extremities: Yes: Other (Warm bilaterally) Edema: No Labs: CBC, BMP 09/02/16 05:20 09/02/16 05:20 INR, PTT INR 3.80 (0.82-1.09) H 09/02/16 05:20 - ....Imaging Chest X-ray: Report Reviewed (Pulm edema and pleural effusions) EKG: Report Reviewed (Tele: NSR with PAC) Problem List - Problems (1) Atrial fibrillation with rapid ventricular response Code(s): I48.91 - UNSPECIFIED ATRIAL FIBRILLATION (2) Breast cancer Code(s): C50.919 - MALIGNANT NEOPLASM OF UNSP SITE OF UNSPECIFIED FEMALE BREAST Qualifiers: Breast location: unspecified site of breast Estrogen receptor status: positive Patient sex: female Laterality: right Qualified Code(s): C50.911 - Malignant neoplasm of unspecified site of right female breast; Z17.0 - Estrogen receptor positive status [ER+] (3) Diabetes Code(s): E11.9 - TYPE 2 DIABETES MELLITUS WITHOUT COMPLICATIONS Qualifiers: Diabetes mellitus type: type 2 Diabetes mellitus complication status: without complication Diabetes mellitus mcc insulin use: without mcc use Qualified Code(s): E11.9 - Type 2 diabetes mellitus without complications (4) HTN (hypertension) Code(s): I10 - ESSENTIAL (PRIMARY) HYPERTENSION Qualifiers: Hypertension type: essential hypertension Qualified Code(s): I10 - Essential (primary) hypertension (5) Hypercholesteremia Code(s): E78.0 - PURE HYPERCHOLESTEROLEMIA * DO NOT USE * (6) Shortness of breath Code(s): R06.02 - SHORTNESS OF BREATH (7) Demand ischemia Code(s): I24.8 - OTHER FORMS OF ACUTE ISCHEMIC HEART DISEASE (8) Chronic kidney disease (CKD) Code(s): N18.9 - CHRONIC KIDNEY DISEASE, UNSPECIFIED Qualifiers: Chronic kidney disease stage: stage 3 (moderate) Qualified Code(s): N18.3 - Chronic kidney disease, stage 3 (moderate) (9) Acute on chronic systolic (congestive) heart failure Code(s): I50.23 - ACUTE ON CHRONIC SYSTOLIC (CONGESTIVE) HEART FAILURE Assessment/Plan 02/17/2015 Echo: Normal LV size with low normal LV fxn, mild MR, mod TR, mild AR , tr-mild KS, small pericardial effusion 09/02/2016 Echo shows normal LV size with mod-severely decreased LV fxn, mod MR, severe TR, mild MS, signiificant change from previous 1. 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 Paroxysmal atrial fibrillation with rapid ventricular response, with supratherapeutic INR 3. CAD, demand ischemic injury 4. Hypertension/HCVD 5. NIDDM 6. Hyperlipidemia 7. Carotid artery stenosis 8. Ascending thoracic aortic aneurysm 9. Breast carcinoma post left mastectomy with mets to lung and bone 10. Acute on CKD PLAN: 1. Increase carvedilol 12.5 bid, Lipitor 20 qhs, resume Diovan 80 qd and add Aldactone once renal fxn stable 2. IV diuresis with monitor diuretic response, renal fxn and electrolytes 3. D/C steroids, wean FIO2 as tolerated, BD as needed 4. Dose Coumadin per INR
--- NOTE | 2016-09-02 12:51 | PN ---
Progress Note (short form) - Note Progress Note: ENT pt awake, alert, daughter is visiting with her pt states she is feeling better, breathing is more comfortable able to eat soft foods (sweet potatoes) HR 100 SaO2 93% RA BP 124/81 PE NAD voice clear and strong no stridor or respiratory distress CXR today shows mild progression of right sided pulmonary and pleural changes Impression: acute respiratory distress resolving po intake improving no suspicion of upper airway obstruction Recommend: continue present management Mark Jean MD
--- NOTE | 2016-09-02 13:05 | EKG ---
Test Reason : Blood Pressure : / mmHG Vent. Rate : 079 BPM Atrial Rate : 079 BPM P-R Int : 160 ms QRS Dur : 106 ms QT Int : 392 ms P-R-T Axes : 048 -45 -61 degrees QTc Int : 449 ms SINUS RHYTHM WITH PREMATURE ATRIAL COMPLEXES LEFT ANTERIOR FASCICULAR BLOCK VOLTAGE CRITERIA FOR LEFT VENTRICULAR HYPERTROPHY ABNORMAL ECG WHEN COMPARED WITH ECG OF 31-AUG-2016 07:30, SINUS RHYTHM HAS REPLACED ATRIAL FIBRILLATION VENT. RATE HAS DECREASED BY 42 BPM T WAVE INVERSION NOW EVIDENT IN INFERIOR LEADS T WAVE INVERSION MORE EVIDENT IN ANTEROLATERAL LEADS Confirmed by PRISCILLA DAMON MD ([id number]) on 09/02/2016 1:05:07 PM Referred By: BERYL TAVAREZ Confirmed By:PRISCILLA DAMON MD
--- NOTE | 2016-09-02 14:47 | PN ---
Teaching Attending Note Name of Resident: Colby Foster ATTENDING PHYSICIAN STATEMENT I saw and evaluated the patient. I reviewed the resident's note and discussed the case with the resident. I agree with the resident's findings and plan as documented. SUBJECTIVE: Patient seen and examined in the ICU. Awake and responsive on NIPPV. Denies CP. SOB has improved with NIPPV. Constitutional: Yes: Awake on NIPPV Eyes: Yes: EOM Intact Cardiovascular: Yes: Regular Rate and Rhythm, Murmur, S1, S2 Respiratory: Yes: On NIPPV, Bilateral Rales/rhonchi, no Wheezes Gastrointestinal: Yes: Normal Bowel Sounds, Soft Edema: LLE: 1+, RLE: 1+ Neurological: Yes: Alert, Oriented Psychiatric: Yes: Oriented Labs: Laboratory Results - last 24 hr 09/01/16 09/01/16 09/01/16 15:34 21:59 23:10 WBC RBC Hgb Hct MCV MCHC RDW Plt Count MPV Neutrophils % Lymphocytes % Monocytes % Eosinophils % Basophils % INR Puncture Site ABG pH ABG pCO2 at Pt Temp ABG pO2 at Pt Temp ABG HCO3 ABG O2 Sat (Measured) ABG O2 Content ABG Base Excess Khurram Test O2 Delivery Device Oxygen Flow Rate Vent Mode Vent Rate Mechanical Rate PEEP Pressure Support Vent Sodium Potassium Chloride Carbon Dioxide Anion Gap BUN Creatinine Creat Clearance w eGFR POC Glucometer [phone] Random Glucose Calcium Phosphorus Magnesium Total Bilirubin AST ALT Alkaline Phosphatase Creatine Kinase 98 Troponin I 0.22 H Total Protein Albumin 09/02/16 09/02/16 09/02/16 05:20 05:20 05:20 WBC RBC Hgb Hct MCV MCHC RDW Plt Count MPV Neutrophils % Lymphocytes % Monocytes % Eosinophils % Basophils % INR 3.80 H Puncture Site ABG pH ABG pCO2 at Pt Temp ABG pO2 at Pt Temp ABG HCO3 ABG O2 Sat (Measured) ABG O2 Content ABG Base Excess Khurram Test O2 Delivery Device Oxygen Flow Rate Vent Mode Vent Rate Mechanical Rate PEEP Pressure Support Vent Sodium 135 L Potassium 4.7 Chloride 98 Carbon Dioxide 29 D Anion Gap 8 BUN 27 H D Creatinine 1.4 H Creat Clearance w eGFR 36.46 POC Glucometer Random Glucose 151 H D Calcium 9.4 Phosphorus 3.4 Magnesium 2.1 Total Bilirubin 0.6 AST 22 ALT 32 Alkaline Phosphatase 53 Creatine Kinase 92 Troponin I 0.23 H Total Protein 6.6 Albumin 3.1 L 09/02/16 09/02/16 09/02/16 05:20 06:53 07:15 WBC 7.5 RBC 4.27 Hgb 12.1 Hct 37.6 MCV 88.2 MCHC 32.1 RDW 14.5 Plt Count 251 MPV 8.2 Neutrophils % 88.0 H Lymphocytes % 9.5 D Monocytes % 2.3 L Eosinophils % 0.0 D Basophils % 0.2 INR Puncture Site Right radial ABG pH 7.39 ABG pCO2 at Pt Temp 39.2 ABG pO2 at Pt Temp 107.0 H D ABG HCO3 23.3 ABG O2 Sat (Measured) 98.4 ABG O2 Content 16.9 ABG Base Excess -0.9 Khurram Test Positive O2 Delivery Device Bipap Oxygen Flow Rate 50% Vent Mode S/t Vent Rate 20 Mechanical Rate Bipap PEEP 0.0 Pressure Support Vent 12/6 Sodium Potassium Chloride Carbon Dioxide Anion Gap BUN Creatinine Creat Clearance w eGFR POC Glucometer [phone] Random Glucose Calcium Phosphorus Magnesium Total Bilirubin AST ALT Alkaline Phosphatase Creatine Kinase Troponin I Total Protein Albumin Problem List - Problems (1) Acute on chronic diastolic (congestive) heart failure Code(s): I50.33 - ACUTE ON CHRONIC DIASTOLIC (CONGESTIVE) HEART FAILURE (2) Atrial fibrillation with rapid ventricular response Code(s): I48.91 - UNSPECIFIED ATRIAL FIBRILLATION (3) Breast cancer Code(s): C50.919 - MALIGNANT NEOPLASM OF UNSP SITE OF UNSPECIFIED FEMALE BREAST Qualifiers: Breast location: unspecified site of breast Estrogen receptor status: positive Patient sex: female Laterality: right Qualified Code(s): C50.911 - Malignant neoplasm of unspecified site of right female breast; Z17.0 - Estrogen receptor positive status [ER+] (4) Chronic kidney disease (CKD) Code(s): N18.9 - CHRONIC KIDNEY DISEASE, UNSPECIFIED Qualifiers: Chronic kidney disease stage: stage 3 (moderate) Qualified Code(s): N18.3 - Chronic kidney disease, stage 3 (moderate) (5) Demand ischemia Code(s): I24.8 - OTHER FORMS OF ACUTE ISCHEMIC HEART DISEASE (6) Lung metastases Code(s): C78.00 - SECONDARY MALIGNANT NEOPLASM OF UNSPECIFIED LUNG (7) Metastatic breast cancer Code(s): C50.919 - MALIGNANT NEOPLASM OF UNSP SITE OF UNSPECIFIED FEMALE BREAST (8) Pleural effusion Code(s): J90 - PLEURAL EFFUSION, NOT ELSEWHERE CLASSIFIED (9) Shortness of breath Code(s): R06.02 - SHORTNESS OF BREATH Assessment/Plan Lasix Short course of empiric steroids BD TX Rate control Monitor off ABX Aspiration precautions AC Palliative care consult Dr Nash critical care time spent in reviewing chart, evaluating patient and formulating plan 40 min
[2016-09-02] MEDS: CARVEDILOL 12.5 MG TABLET (FP) PO SCH ×2 (16:02→21:22)
[2016-09-02] MEDS: ALBUTEROL SO4 2.5/IPRATROPIUM 0.5 INH SOL 3 ML VIAL.NEB. NEB PRN (18:51)
--- NOTE | 2016-09-02 20:16 | PN ---
Progress Note, Physician History of Present Illness: Pt w/ some improvement - Current Medication List Current Medications: Active Medications Albuterol/Ipratropium (Duoneb -) 1 amp NEB Q6H PRN PRN Reason: SHORTNESS OF BREATH Last Admin: 09/02/16 18:51 Dose: 1 amp Atorvastatin Calcium (Lipitor -) 20 mg PO HS [facility] Last Admin: 09/01/16 22:16 Dose: 20 mg Carvedilol (Coreg -) 12.5 mg PO BID [facility] Last Admin: 09/02/16 16:02 Dose: 12.5 mg Chlorhexidine Gluconate (Hibiclens For Decolonization -) 1 applic TP HS [facility] Last Admin: 09/01/16 22:17 Dose: 1 applic Furosemide (Lasix Injection -) 40 mg IVPB BIDLASIX [facility] Last Admin: 09/02/16 14:01 Dose: 40 mg Guaifenesin (Robitussin -) 5 ml PO Q6H PRN PRN Reason: COUGH Last Admin: 09/01/16 10:41 Dose: 5 ml Insulin Aspart (Novolog Vial Sliding Scale -) 1 vial SQ ACHS [facility] PRN Reason: Protocol Last Admin: 09/02/16 16:31 Dose: 8 units Methylprednisolone Sodium Succinate (Solu-Medrol -) 40 mg IVPB Q12H [facility] Mupirocin (Bactroban Ointment (For Decolonization) -) 1 applic NS BID [facility] Stop: 09/06/16 21:59 Last Admin: 09/02/16 10:23 Dose: 1 applic - Objective Vital Signs: Vital Signs Temperature 98.0 F 09/02/16 14:00 Pulse Rate 119 H 09/02/16 18:00 Respiratory Rate 25 H 09/02/16 18:00 Blood Pressure 108/81 09/02/16 18:00 O2 Sat by Pulse Oximetry (%) 96 09/02/16 18:09 Eyes: Yes: WNL HENT: Yes: WNL Neck: Yes: Supple Cardiovascular: Yes: Tachycardia Respiratory: Yes: Diminished Gastrointestinal: Yes: WNL, Normal Bowel Sounds, Soft, Abdomen, Obese Labs: CBC, BMP 09/02/16 05:20 09/02/16 05:20 INR, PTT INR 3.80 (0.82-1.09) H 09/02/16 05:20 Problem List - Problems (1) Shortness of breath Assessment/Plan: Long d/w pt and her daughter(HCP) about DNR They will think aopbut it but pt expressed her desire about DNR Pt won't sign any document yet Multifactorial Lung mets vs CHF Cont lasix IV antibxs stopped not likely infectious(afebrile/normal WBC) Cont on IV steroids for now Code(s): R06.02 - SHORTNESS OF BREATH (2) Atrial fibrillation with rapid ventricular response Assessment/Plan: Heart rate is tachy today Coumadin on hold due to supratherpeutic inr Cont to monitor labs Cont coreg Code(s): I48.91 - UNSPECIFIED ATRIAL FIBRILLATION (3) Acute on chronic diastolic (congestive) heart failure Assessment/Plan: BNP >12,000. Cont IV lasix Elevated troponin due to demand ischemia Code(s): I50.33 - ACUTE ON CHRONIC DIASTOLIC (CONGESTIVE) HEART FAILURE (4) Metastatic breast cancer Assessment/Plan: Onco consult Code(s): C50.919 - MALIGNANT NEOPLASM OF UNSP SITE OF UNSPECIFIED FEMALE BREAST (5) Diabetes Assessment/Plan: Cont sliding scale w/ coverage Code(s): E11.9 - TYPE 2 DIABETES MELLITUS WITHOUT COMPLICATIONS Qualifiers: Diabetes mellitus type: type 2 Diabetes mellitus complication status: without complication Diabetes mellitus group home insulin use: without exterminator helper use Qualified Code(s): E11.9 - Type 2 diabetes mellitus without complications (6) HTN (hypertension) Code(s): I10 - ESSENTIAL (PRIMARY) HYPERTENSION Qualifiers: Hypertension type: essential hypertension Qualified Code(s): I10 - Essential (primary) hypertension (7) Hypercholesteremia Code(s): E78.0 - PURE HYPERCHOLESTEROLEMIA * DO NOT USE *
[2016-09-02] MEDS: CHLORHEXIDINE GLUCONATE 4% CLEANSER FOR DECOLONIZATION TP SCH (21:32)
[2016-09-02] MEDS: ATORVASTATIN CA 20 MG TABLET (FP) PO SCH (21:33)
[2016-09-03] MEDS ORDERED: HEMOQUE TEST 1 EACH EACH ONE (05:34)
[2016-09-03] MEDS: FUROSEMIDE 40 MG/4 ML INJECTABLE VIAL IVPB SCH (06:09)
[2016-09-03] MEDS: INSULIN SLIDING SCALE (NOVOLOG) 1 VIAL SQ SCH ×4 (06:16→22:37)
--- NOTE | 2016-09-03 07:13 | PN ---
Progress Note, Physician Chief Complaint: ID Looks more comfortable today Denies any complaints Elected to watch her off antibiotics She remains afebrile with original blood cultures no growth - Current Medication List Current Medications: Active Medications Albuterol/Ipratropium (Duoneb -) 1 amp NEB Q6H PRN PRN Reason: SHORTNESS OF BREATH Last Admin: 09/02/16 18:51 Dose: 1 amp Atorvastatin Calcium (Lipitor -) 20 mg PO HS [facility] Last Admin: 09/02/16 21:33 Dose: 20 mg Carvedilol (Coreg -) 12.5 mg PO BID [facility] Last Admin: 09/02/16 21:22 Dose: Not Given Chlorhexidine Gluconate (Hibiclens For Decolonization -) 1 applic TP HS [facility] Last Admin: 09/02/16 21:32 Dose: 1 applic Furosemide (Lasix Injection -) 40 mg IVPB BIDLASIX [facility] Last Admin: 09/03/16 06:09 Dose: 40 mg Guaifenesin (Robitussin -) 5 ml PO Q6H PRN PRN Reason: COUGH Last Admin: 09/01/16 10:41 Dose: 5 ml Insulin Aspart (Novolog Vial Sliding Scale -) 1 vial SQ ACHS [facility] PRN Reason: Protocol Last Admin: 09/03/16 06:16 Dose: 6 units Methylprednisolone Sodium Succinate (Solu-Medrol -) 40 mg IVPB Q12H [facility] Last Admin: 09/02/16 21:32 Dose: 40 mg Mupirocin (Bactroban Ointment (For Decolonization) -) 1 applic NS BID [facility] Stop: 09/06/16 21:59 Last Admin: 09/02/16 21:32 Dose: 1 applic - Objective Vital Signs: Vital Signs Temperature 97 F L 09/03/16 06:00 Pulse Rate 98 H 09/03/16 06:00 Respiratory Rate 14 09/03/16 06:00 Blood Pressure 110/68 09/03/16 06:00 O2 Sat by Pulse Oximetry (%) 96 09/02/16 21:00 Constitutional: Yes: Well Nourished, No Distress Neck: Yes: WNL, Supple Cardiovascular: Yes: Regular Rate and Rhythm, Murmur, S1, S2 Respiratory: Yes: WNL, Regular, CTA Bilaterally, Diminished, Rhonchi. No: Rales Gastrointestinal: Yes: WNL, Normal Bowel Sounds, Soft. No: Tenderness, Tenderness, Rebound Edema: No Labs: CBC, BMP 09/02/16 05:20 09/02/16 05:20 INR, PTT INR 3.80 (0.82-1.09) H 09/02/16 05:20 Problem List - Problems (1) Acute on chronic diastolic (congestive) heart failure Code(s): I50.33 - ACUTE ON CHRONIC DIASTOLIC (CONGESTIVE) HEART FAILURE (2) Atrial fibrillation with rapid ventricular response Code(s): I48.91 - UNSPECIFIED ATRIAL FIBRILLATION (3) Metastatic breast cancer Code(s): C50.919 - MALIGNANT NEOPLASM OF UNSP SITE OF UNSPECIFIED FEMALE BREAST (4) Respiratory failure Code(s): J96.90 - RESPIRATORY FAILURE, UNSP, UNSP W HYPOXIA OR HYPERCAPNIA Assessment/Plan Microbiology 08/31/16 09:15 Blood - Bryant Cath Blood Culture - Preliminary NO GROWTH OBTAINED AFTER 48 HOURS, INCUBATION TO CONTINUE FOR 3 DAYS. 08/31/16 08:22 Blood - Bryant Cath Blood Culture - Preliminary NO GROWTH OBTAINED AFTER 48 HOURS, INCUBATION TO CONTINUE FOR 3 DAYS. Laboratory Tests 09/02/16 09/02/16 09/02/16 05:20 05:20 05:20 WBC 7.5 Hgb 12.1 Plt Count 251 Creat Clearance w eGFR 36.46 Troponin I 0.23 H Assessment Metastatic breast Cancer bone pulmonary mets Congestive heart failure Atrial fibrillation Respiratory failure Plan No active infection therefore will sign off/ Kindly recall as might be needed Waleska COTTON
[2016-09-03 08:23] LABS: MCH 28.3 pg (25.7-33.7); MCHC 32.2 g/dl (32.0-36.0); MEAN CELL VOLUME 87.9 fl (80-96); MEAN PLT VOLUME 7.5 fl (7.5-11.1); PLATELET COUNT 233 K/MM3 (134-434); WHITE BLOOD COUNT 9.5 K/mm3 (4.0-10.0)
[2016-09-03 08:34] LABS: INR 2.52 (0.82-1.09); PROTHROMBIN TIME (PATIENT) 28.3 SEC (9.98-11.88)
[2016-09-03] MEDS: CARVEDILOL 12.5 MG TABLET (FP) PO SCH ×2 (09:23→22:35)
[2016-09-03] MEDS: methylPREDNISolone NA SUCC 40 MG/1 ML VIAL IVPB SCH (09:23)
[2016-09-03] MEDS: MUPIROCIN 2% TOPICAL OINTMENT FOR DECOLONIZATION NS SCH (09:24)
[2016-09-03 09:25] LABS: CALCIUM 9.5 mg/dL (8.5-10.1); CREATININE 1.6 mg/dL (0.55-1.02); MAGNESIUM 2.5 mg/dL (1.8-2.4); TROPONIN I 0.16 ng/ml (0.00-0.05)
[2016-09-03] MEDS: ALBUTEROL SO4 2.5/IPRATROPIUM 0.5 INH SOL 3 ML VIAL.NEB. NEB PRN (09:45)
[2016-09-03] MEDS ORDERED: methylPREDNISolone NA SUCC 40 MG/1 ML VIAL IVPB SCH (10:00)
--- NOTE | 2016-09-03 10:01 | PN ---
Physical Exam: SUBJECTIVE: Patient seen and examined at bedside this AM in ICU. AAO & in pleasant mood. States her breathing is much better and almost back to baseline. Denies chest pain, palpitations, abdominal pain or any issues with breathing. OBJECTIVE: Vital Signs Period Temp Pulse Resp BP Sys/Krause Pulse Ox Last 24 Hr 97 F-98.3 F 81-120 14-33 102-128/60-87 96-100 GENERAL: Awake, alert, and fully oriented, in no acute distress. Resting in bed comfortably on NC oxygen. HEENT: Atraumatic, EOMI, PERRLA, No lymphadenopathy noted, moist membranes LUNGS: Mildly diminished breath sounds Left lower lung, mildly diminished breath sounds right lower lung; bibasilar crackles noted; no wheezing or stridor in either lung (aeration improved from yesterday) HEART: Regular rate and rhythm, S1 and S2 ABDOMEN: Soft, nontender, not distended, normoactive bowel sounds, no guarding, no rebound UPPER EXTREMITIES: 2+ pulses, warm, well-perfused. No cyanosis. No clubbing. Cap refill <2 seconds. No peripheral edema. LOWER EXTREMITIES: 2+ pulses, warm, well-perfused. No calf tenderness. +1 bilateral lower extremity edema noted NEUROLOGICAL: Cranial nerves II-XII intact. Normal gait. PSYCHIATRIC: Cooperative. Good eye contact. Appropriate mood and affect. SKIN: Warm, dry, normal turgor, no rashes or lesions noted. Laboratory Results - last 24 hr 09/02/16 09/02/16 09/02/16 06:53 11:50 16:29 WBC RBC Hgb Hct MCV MCHC RDW Plt Count MPV INR Sodium Potassium Chloride Carbon Dioxide Anion Gap BUN Creatinine POC Glucometer 189.27033 225.03772 [phone] Random Glucose Calcium Magnesium Creatine Kinase Troponin I 09/02/16 09/03/16 09/03/16 21:32 07:35 07:35 WBC 9.5 RBC 4.45 Hgb 12.6 Hct 39.1 MCV 87.9 MCHC 32.2 RDW 15.0 Plt Count 233 MPV 7.5 INR 2.52 H D Sodium Potassium Chloride Carbon Dioxide Anion Gap BUN Creatinine POC Glucometer [phone] Random Glucose Calcium Magnesium Creatine Kinase Troponin I 09/03/16 07:35 WBC RBC Hgb Hct MCV MCHC RDW Plt Count MPV INR Sodium 135 L Potassium 3.9 Chloride 96 L Carbon Dioxide 29 Anion Gap 10 BUN 38 H D Creatinine 1.6 H POC Glucometer Random Glucose 234 H D Calcium 9.5 Magnesium 2.5 H Creatine Kinase 64 Troponin I 0.16 H Active Medications Generic Name Dose Route Start Last Admin Trade Name Freq PRN Reason Stop Dose Admin Albuterol/Ipratropium 1 amp 08/31/16 19:58 09/02/16 18:51 Duoneb - NEB 1 amp Q6H PRN Administration SHORTNESS OF BREATH Atorvastatin Calcium 20 mg 08/31/16 22:00 09/02/16 21:33 Lipitor - PO 20 mg HS [facility] Administration Carvedilol 12.5 mg 09/02/16 11:51 09/03/16 09:23 Coreg - PO 12.5 mg BID [facility] Administration Chlorhexidine Gluconate 1 applic 09/01/16 22:00 09/02/16 21:32 Hibiclens For Decolonization - TP 1 applic HS [facility] Administration Furosemide 40 mg 09/01/16 18:00 09/03/16 06:09 Lasix Injection - IVPB 40 mg BIDLASIX [facility] Administration Guaifenesin 5 ml 09/01/16 09:25 09/01/16 10:41 Robitussin - PO 5 ml Q6H PRN Administration COUGH Insulin Aspart 1 vial 08/31/16 22:00 09/03/16 06:16 Novolog Vial Sliding Scale - SQ 6 units ACHS [facility] Administration Protocol Methylprednisolone Sodium Succinate 40 mg 09/03/16 10:00 Solu-Medrol - IVPB DAILY [facility] Mupirocin 1 applic 09/01/16 22:00 09/03/16 09:24 Bactroban Ointment (For Decolonization) - NS 09/06/16 21:59 1 applic BID [facility] Administration ASSESSMENT/PLAN: 76 year old female with PMH of Left breast cancer s/p lumpectomy and mastectomy (2000) with recurrence and mets to lung and bone, DVT, CAD, HTN, HLD, ascending thoracic aortic aneurysm, carotid stenosis, DM, CVA, Paroxysmal Atrial fibrillation who presented to ED with acute respiratory failure d/t paroxysmal A -fib overlying chronic diastolic CHF & lung mets. #Acute Respiratory Failure, in setting of Lung mets, chronic diastolic CHF, A- Fib w/ RVR -diuresis with Lasix 40mg IV BID -Solumedrol discontinued today -Duonebs QIDR -CXR reviewed, effusions improving -Saturating well on nasal cannula 2L #Paroxysmal Atrial Fibrillation -rate controlled at present on Coreg 12.5mg BID -anticoagulated at home on Coumadin, INR Currently supratherapeutic -will restart Coumadin once in therapeutic range again #HTN/HLD/CAD/Diastolic CHF Hx -diuresis, as above -Lipitor 20mg HS & rate control, as above -ECHO reviewed -troponins trended down -I & Os, weights -cardiology consult appreciated #DVT Hx -continue Coumadin when INR becomes therapeutic (currently INR 2.52) #DM -holding oral meds: Metformin, Sitagliptin -ISS -BGM Prophylaxis/FEN -Will restart Coumadin once INR decreases (currently 2.52) -no PPI indicated -no IVF indicated -monitor electrolytes -Diabetic diet Visit type - Emergency Visit Emergency Visit: Yes ED Registration Date: 08/31/16 Care time: The patient presented to the Emergency Department on the above date and was hospitalized for further evaluation of their emergent condition. - New Patient This patient is new to me today: No - Critical Care Critical Care patient: Yes Total Critical Care Time (in minutes): 50 Critical Care Statement: The care of this patient involved high complexity decision making to prevent further life threatening deterioration of the patient 's condition and/or to evalute & treat vital organ system(s) failure or risk of failure.
--- NOTE | 2016-09-03 11:30 | PN ---
Progress Note (short form) - Note Progress Note: S: 76 year old female, with history hypertension, hypertensive cardiovascular disease, thoracic aortic aneurysm, s/p CVA, DVT, s/p left mastectomy for carcinoma, with recurrence, matistatic pulmonary and bone disease , non insulin dependent diabetes mellitus, presented with cough and dyspnea. Echocardiogram revealed severe left ventricular systolic dysfunction, moderate mitral regurgitation, reported to have mild mitral stenosis, severe tricuspid regurgitation, mild to moderate aortic regurgitation, mild to moderate pulmonary regurgitation. Patient complaints of lethargy, no chest pain or discomfort reported, no history of dyspnea, PND or orthopnea. Active Medications Generic Name Dose Route Start Last Admin Trade Name Freq PRN Reason Stop Dose Admin Albuterol/Ipratropium 1 amp 08/31/16 19:58 09/03/16 09:45 Duoneb - NEB 1 amp Q6H PRN Administration SHORTNESS OF BREATH Atorvastatin Calcium 20 mg 08/31/16 22:00 09/02/16 21:33 Lipitor - PO 20 mg HS [facility] Administration Carvedilol 12.5 mg 09/02/16 11:51 09/03/16 09:23 Coreg - PO 12.5 mg BID [facility] Administration Chlorhexidine Gluconate 1 applic 09/01/16 22:00 09/02/16 21:32 Hibiclens For Decolonization - TP 1 applic HS [facility] Administration Furosemide 40 mg 09/01/16 18:00 09/03/16 06:09 Lasix Injection - IVPB 40 mg BIDLASIX [facility] Administration Guaifenesin 5 ml 09/01/16 09:25 09/01/16 10:41 Robitussin - PO 5 ml Q6H PRN Administration COUGH Insulin Aspart 1 vial 08/31/16 22:00 09/03/16 10:58 Novolog Vial Sliding Scale - SQ 6 units ACHS [facility] Administration Protocol Methylprednisolone Sodium Succinate 40 mg 09/03/16 10:00 09/03/16 10:44 Solu-Medrol - IVPB Not Given DAILY [facility] Mupirocin 1 applic 09/01/16 22:00 09/03/16 09:24 Bactroban Ointment (For Decolonization) - NS 09/06/16 21:59 1 applic BID [facility] Administration O: 76 year old female was in no acute distress, no pallor, cyanosis, clubbing, or jaundice. Last Vital Signs Temp Pulse Resp BP Pulse Ox 97 F L 90 Irregular 14 102/68 99 09/03/16 06:00 09/03/16 10:59 09/03/16 10:00 09/03/16 10:00 09/03/16 10:59 Neck: Supple, no JVD, negative HJR, carotids were equal and upstrokes were normal, no thyromegaly appreciated. Heart: PMI was in the 5th intercostal space, no heaves or thrills, S1 variable and S2 was normal. I/ apical systolic murmur. No diastolic murmur or gallops were appreciated. Lungs: Clear on auscultation bilaterally. Abdomen: Soft, nontender, no hepatosplenomegaly appreciated, and no palpable masses were felt. Extremities: No calf tenderness or dependent edema. CBC, BMP 09/03/16 07:35 09/03/16 07:35 Laboratory Results - last 24 hr 09/02/16 09/02/16 09/02/16 11:50 16:29 21:32 WBC RBC Hgb Hct MCV MCHC RDW Plt Count MPV INR Sodium Potassium Chloride Carbon Dioxide Anion Gap BUN Creatinine POC Glucometer 225.00863 311.19368 260.47706 Random Glucose Calcium Magnesium Creatine Kinase Troponin I 09/03/16 09/03/16 09/03/16 06:13 07:35 07:35 WBC 9.5 RBC 4.45 Hgb 12.6 Hct 39.1 MCV 87.9 MCHC 32.2 RDW 15.0 Plt Count 233 MPV 7.5 INR 2.52 H D Sodium Potassium Chloride Carbon Dioxide Anion Gap BUN Creatinine POC Glucometer 258.95252 Random Glucose Calcium Magnesium Creatine Kinase Troponin I 09/03/16 09/03/16 07:35 10:54 WBC RBC Hgb Hct MCV MCHC RDW Plt Count MPV INR Sodium 135 L Potassium 3.9 Chloride 96 L Carbon Dioxide 29 Anion Gap 10 BUN 38 H D Creatinine 1.6 H POC Glucometer [phone] Random Glucose 234 H D Calcium 9.5 Magnesium 2.5 H Creatine Kinase 64 Troponin I 0.16 H Impression: (1) Paroxysmal atrial fibrillation with periods of rapid ventricular response Code(s): I48.91 - UNSPECIFIED ATRIAL FIBRILLATION (2) Metastatic breast carcinoma with lung / Lymphangitic spread and bone involvement Code(s): C50.919 - MALIGNANT NEOPLASM OF UNSP SITE OF UNSPECIFIED FEMALE BREAST Qualifiers: Breast location: unspecified site of breast Estrogen receptor status: positive Patient sex: female Laterality: right Qualified Code(s): C50.911 - Malignant neoplasm of unspecified site of right female breast; Z17.0 - Estrogen receptor positive status [ER+] (3) Diabetes Mellitus Code(s): E11.9 - TYPE 2 DIABETES MELLITUS WITHOUT COMPLICATIONS Qualifiers: Diabetes mellitus type: type 2 Diabetes mellitus complication status: without complication 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 use: without longterm use Qualified Code(s): E11.9 - Type 2 diabetes mellitus without complications (4) Hypertension Code(s): I10 - ESSENTIAL (PRIMARY) HYPERTENSION Qualifiers: Hypertension type: essential hypertension Qualified Code(s): I10 - Essential (primary) hypertension (5) Hypercholesteremia Code(s): E78.0 - PURE HYPERCHOLESTEROLEMIA * DO NOT USE * (6) Shortness of breath Code(s): R06.02 - SHORTNESS OF BREATH (7) Demand ischemia Code(s): I24.8 - OTHER FORMS OF ACUTE ISCHEMIC HEART DISEASE (8) Chronic kidney disease Code(s): N18.9 - CHRONIC KIDNEY DISEASE, UNSPECIFIED Qualifiers: Chronic kidney disease stage: stage 3 (moderate) Qualified Code(s): N18.3 - Chronic kidney disease, stage 3 (moderate) (9) Congestive heart failure Code(s): I50.23 - ACUTE ON CHRONIC SYSTOLIC (CONGESTIVE) HEART FAILURE Recommendations: 1. Consider switching to Metropolol titrate and discontinuing Carvidalol for rate control. 2. Note patient is auto anticougulated. 3. Follow up INR. 4. Follow up ECG. Prognosis: Critical Attestation: Documentation prepared by Scar Hernández, acting as medical technologist clinical for Matt Bui MD.
[2016-09-03] MEDS ORDERED: guaiFENesin 200 MG/10 ML 10 ML UNIT-DOSE CUPS PO PRN ×2 (12:14→15:50)
[2016-09-03] MEDS ORDERED: ALBUTEROL SO4 2.5/IPRATROPIUM 0.5 INH SOL 3 ML VIAL.NEB. NEB PRN (12:14)
--- NOTE | 2016-09-03 12:49 | PN ---
Teaching Attending Note Name of Resident: Colby Foster ATTENDING PHYSICIAN STATEMENT I saw and evaluated the patient. I reviewed the resident's note and discussed the case with the resident. I agree with the resident's findings and plan as documented. SUBJECTIVE: Patient seen and examined in the ICU. Awake and responsive on NC O2. Blunted affect. Exam non-focal. Some dry cough. Reports decreased SOB. CXR: large right effusion / no gross change Intake & Output 08/31/16 09/01/16 09/02/16 09/03/16 23:59 23:59 23:59 23:59 Intake Total 700 1545 550 200 Output Total 1750 1850 700 Balance 700 -356 -1300 -500 Weight 189 lb 188 lb 8 oz 190 lb 9 oz 185 lb 7 oz Last Vital Signs Temp Pulse Resp BP Pulse Ox 98 F 71 16 90/39 99 09/03/16 12:00 09/03/16 12:00 09/03/16 12:00 09/03/16 12:00 09/03/16 10:59 Active Medications Albuterol/Ipratropium (Duoneb -) 1 amp NEB Q6H PRN PRN Reason: SHORTNESS OF BREATH Atorvastatin Calcium (Lipitor -) 20 mg PO HS [facility] Carvedilol (Coreg -) 12.5 mg PO BID [facility] Furosemide (Lasix Injection -) 40 mg IVPB BIDLASIX [facility] Guaifenesin (Robitussin -) 5 ml PO Q6H PRN PRN Reason: COUGH Insulin Aspart (Novolog Vial Sliding Scale -) 1 vial SQ ACHS [facility] PRN Reason: Protocol Constitutional: Yes: Awake on NC O2 Eyes: Yes: EOM Intact Cardiovascular: Yes: Regular Rate and Rhythm, Murmur, S1, S2 Respiratory: Yes: Bilateral Rales/rhonchi, no Wheezes Gastrointestinal: Yes: Normal Bowel Sounds, Soft Edema: LLE: 1+, RLE: 1+ Neurological: Yes: Alert, Oriented Psychiatric: Yes: Blunted affect Labs: Laboratory Results - last 24 hr 09/02/16 09/02/16 09/02/16 11:50 16:29 21:32 WBC RBC Hgb Hct MCV MCHC RDW Plt Count MPV INR Sodium Potassium Chloride Carbon Dioxide Anion Gap BUN Creatinine POC Glucometer 225.95507 311.62167 260.51817 Random Glucose Calcium Magnesium Creatine Kinase Troponin I 09/03/16 09/03/16 09/03/16 06:13 07:35 07:35 WBC 9.5 RBC 4.45 Hgb 12.6 Hct 39.1 MCV 87.9 MCHC 32.2 RDW 15.0 Plt Count 233 MPV 7.5 INR 2.52 H D Sodium Potassium Chloride Carbon Dioxide Anion Gap BUN Creatinine POC Glucometer 258.33156 Random Glucose Calcium Magnesium Creatine Kinase Troponin I 09/03/16 09/03/16 07:35 10:54 WBC RBC Hgb Hct MCV MCHC RDW Plt Count MPV INR Sodium 135 L Potassium 3.9 Chloride 96 L Carbon Dioxide 29 Anion Gap 10 BUN 38 H D Creatinine 1.6 H POC Glucometer 278.85682 Random Glucose 234 H D Calcium 9.5 Magnesium 2.5 H Creatine Kinase 64 Troponin I 0.16 H Problem List - Problems (1) Acute on chronic diastolic (congestive) heart failure Code(s): I50.33 - ACUTE ON CHRONIC DIASTOLIC (CONGESTIVE) HEART FAILURE (2) Atrial fibrillation with rapid ventricular response Code(s): I48.91 - UNSPECIFIED ATRIAL FIBRILLATION (3) Breast cancer Code(s): C50.919 - MALIGNANT NEOPLASM OF UNSP SITE OF UNSPECIFIED FEMALE BREAST Qualifiers: Breast location: unspecified site of breast Estrogen receptor status: positive Patient sex: female Laterality: right Qualified Code(s): C50.911 - Malignant neoplasm of unspecified site of right female breast; Z17.0 - Estrogen receptor positive status [ER+] (4) Chronic kidney disease (CKD) Code(s): N18.9 - CHRONIC KIDNEY DISEASE, UNSPECIFIED Qualifiers: Chronic kidney disease stage: stage 3 (moderate) Qualified Code(s): N18.3 - Chronic kidney disease, stage 3 (moderate) (5) Demand ischemia Code(s): I24.8 - OTHER FORMS OF ACUTE ISCHEMIC HEART DISEASE (6) Lung metastases Code(s): C78.00 - SECONDARY MALIGNANT NEOPLASM OF UNSPECIFIED LUNG (7) Metastatic breast cancer Code(s): C50.919 - MALIGNANT NEOPLASM OF UNSP SITE OF UNSPECIFIED FEMALE BREAST (8) Pleural effusion Code(s): J90 - PLEURAL EFFUSION, NOT ELSEWHERE CLASSIFIED (9) Shortness of breath Code(s): R06.02 - SHORTNESS OF BREATH Assessment/Plan Lasix May need to go back on steroids -> I suspect lymphatic spread of cancer BD TX Rate control Monitor off ABX Aspiration precautions AC Palliative care to determine GOC Cardiac Telemetry monitoring Dr Nash critical care time spent in reviewing chart, evaluating patient and formulating plan 40 min
[2016-09-03] MEDS ORDERED: FUROSEMIDE 40 MG/4 ML INJECTABLE VIAL IVPB SCH (14:00)
[2016-09-03] MEDS ORDERED: INSULIN SLIDING SCALE (NOVOLOG) 1 VIAL SQ SCH (16:30)
[2016-09-03] MEDS ORDERED: METOPROLOL TARTRATE 5 MG/5 ML VIAL IVPUSH ONE ×2 (17:43→18:23)
[2016-09-03] MEDS ORDERED: WARFARIN NA 3 MG TABLET PO ONE (18:00)
--- NOTE | 2016-09-03 18:36 | PN ---
Progress Note, Physician History of Present Illness: MY FIRST ENCOUNTER WITH PATIENT I M COVERING DR PIÑA - Current Medication List Current Medications: Active Medications Albuterol/Ipratropium (Duoneb -) 1 amp NEB Q6H PRN PRN Reason: SHORTNESS OF BREATH Atorvastatin Calcium (Lipitor -) 20 mg PO HS [facility] Carvedilol (Coreg -) 12.5 mg PO BID [facility] Furosemide (Lasix Injection -) 40 mg IVPB DAILY [facility] Guaifenesin (Robitussin -) 5 ml PO Q6H PRN PRN Reason: COUGH Insulin Aspart (Novolog Vial Sliding Scale -) 1 vial SQ ACHS [facility] PRN Reason: Protocol Last Admin: 09/03/16 17:03 Dose: 6 units - Objective Vital Signs: Vital Signs Temperature 98.2 F 09/03/16 17:43 Pulse Rate 140 H 09/03/16 17:43 Respiratory Rate 20 09/03/16 17:43 Blood Pressure 142/80 09/03/16 17:43 O2 Sat by Pulse Oximetry (%) 95 09/03/16 18:13 Constitutional: Yes: No Distress HENT: Yes: Atraumatic Neck: Yes: Supple Cardiovascular: Yes: Regular Rate and Rhythm Respiratory: Yes: Rhonchi Gastrointestinal: Yes: Normal Bowel Sounds Extremities: Yes: WNL Neurological: Yes: Alert, Oriented Labs: CBC, BMP 09/03/16 07:35 09/03/16 07:35 INR, PTT INR 2.52 (0.82-1.09) H D 09/03/16 07:35 Problem List - Problems (1) Acute on chronic diastolic (congestive) heart failure Code(s): I50.33 - ACUTE ON CHRONIC DIASTOLIC (CONGESTIVE) HEART FAILURE (2) Atrial fibrillation with rapid ventricular response Code(s): I48.91 - UNSPECIFIED ATRIAL FIBRILLATION (3) Breast cancer Code(s): C50.919 - MALIGNANT NEOPLASM OF UNSP SITE OF UNSPECIFIED FEMALE BREAST Qualifiers: Breast location: unspecified site of breast Estrogen receptor status: positive Patient sex: female Laterality: right Qualified Code(s): C50.911 - Malignant neoplasm of unspecified site of right female breast; Z17.0 - Estrogen receptor positive status [ER+] (4) Chronic kidney disease (CKD) Code(s): N18.9 - CHRONIC KIDNEY DISEASE, UNSPECIFIED Qualifiers: Chronic kidney disease stage: stage 3 (moderate) Qualified Code(s): N18.3 - Chronic kidney disease, stage 3 (moderate) (5) Demand ischemia Code(s): I24.8 - OTHER FORMS OF ACUTE ISCHEMIC HEART DISEASE (6) Lung metastases Code(s): C78.00 - SECONDARY MALIGNANT NEOPLASM OF UNSPECIFIED LUNG (7) Metastatic breast cancer Code(s): C50.919 - MALIGNANT NEOPLASM OF UNSP SITE OF UNSPECIFIED FEMALE BREAST (8) Respiratory failure Code(s): J96.90 - RESPIRATORY FAILURE, UNSP, UNSP W HYPOXIA OR HYPERCAPNIA (9) CAD (coronary artery disease) Code(s): I25.10 - ATHSCL HEART DISEASE OF [place] CORONARY ARTERY W/O ANG PCTRS Qualifiers: Coronary Disease-Associated Artery/Lesion type: [place] artery [place] vs. transplanted heart: [place] heart Associated angina: without angina Qualified Code(s): I25.10 - Atherosclerotic heart disease of [place] coronary artery without angina pectoris (10) Diabetes Code(s): E11.9 - TYPE 2 DIABETES MELLITUS WITHOUT COMPLICATIONS Qualifiers: Diabetes mellitus type: type 2 Diabetes mellitus complication status: without complication Diabetes mellitus intermediate school teacher insulin use: without snf use Qualified Code(s): E11.9 - Type 2 diabetes mellitus without complications (11) HTN (hypertension) Code(s): I10 - ESSENTIAL (PRIMARY) HYPERTENSION Qualifiers: Hypertension type: essential hypertension Qualified Code(s): I10 - Essential (primary) hypertension Assessment/Plan 1. Acute hypoxic respiratory failure referable to acute on chronic LV systolic failure 2. Paroxysmal atrial fibrillation with rapid ventricular response, with supratherapeutic INR 3. CAD, demand ischemic injury 4. Hypertension/HCVD 5. NIDDM 6. Hyperlipidemia 7. Carotid artery stenosis 8. Ascending thoracic aortic aneurysm 9. Breast carcinoma post left mastectomy with mets to lung and bone 10. Acute on CKD ALL MEDS REVIEWED CONTINUE CURRENT MEDS FOLLOW UP LABS pt stated she has a difficulty in drinking water and she coughs on it will put an order for nectar thick liquids swallowing eval
[2016-09-03] MEDS ORDERED: dilTIAZem HCL 50 MG/10 ML - 10 ML VIAL IVPUSH STA (20:41)
[2016-09-03] MEDS ORDERED: dilTIAZem HCL 30 MG TABLET (FP) PO ONE (20:45)
[2016-09-03] MEDS ORDERED: CARVEDILOL 12.5 MG TABLET (FP) PO SCH (22:00)
[2016-09-03] MEDS ORDERED: ATORVASTATIN CA 20 MG TABLET (FP) PO SCH (22:00)
[2016-09-03] MEDS: ATORVASTATIN CA 20 MG TABLET (FP) PO SCH (22:35)
[2016-09-04] MEDS: INSULIN SLIDING SCALE (NOVOLOG) 1 VIAL SQ SCH ×4 (06:11→21:14)
[2016-09-04] MEDS: ALBUTEROL SO4 2.5/IPRATROPIUM 0.5 INH SOL 3 ML VIAL.NEB. NEB PRN (07:12)
[2016-09-04] MEDS ORDERED: FUROSEMIDE 40 MG/4 ML INJECTABLE VIAL ONE (07:50)
[2016-09-04] MEDS: CARVEDILOL 12.5 MG TABLET (FP) PO SCH ×2 (08:03→10:50)
[2016-09-04] MEDS: FUROSEMIDE 40 MG/4 ML INJECTABLE VIAL IVPB SCH ×2 (08:03→10:50)
[2016-09-04 09:32] LABS: MCH 28.5 pg (25.7-33.7); MCHC 32.2 g/dl (32.0-36.0); MEAN CELL VOLUME 88.5 fl (80-96); MEAN PLT VOLUME 7.6 fl (7.5-11.1); PLATELET COUNT 244 K/MM3 (134-434); RDW 14.7 % (11.6-15.6); WHITE BLOOD COUNT 13.8 K/mm3 (4.0-10.0)
[2016-09-04 09:48] LABS: INR 2.4 (0.82-1.09); PROTHROMBIN TIME (PATIENT) 26.9 SEC (9.98-11.88)
[2016-09-04 10:33] LABS: CALCIUM 9.8 mg/dL (8.5-10.1); COCKROFT - GAULT 34.969; CREATININE 1.7 mg/dL (0.55-1.02)
--- NOTE | 2016-09-04 10:52 | PN ---
Progress Note, Physician History of Present Illness: Dyspnea and O2 requirement improved, currently maintained on 2L NC. - Current Medication List Current Medications: Active Medications Albuterol/Ipratropium (Duoneb -) 1 amp NEB Q6H PRN PRN Reason: SHORTNESS OF BREATH Last Admin: 09/04/16 07:12 Dose: 1 amp Atorvastatin Calcium (Lipitor -) 20 mg PO HS [facility] Last Admin: 09/03/16 22:35 Dose: 20 mg Carvedilol (Coreg -) 12.5 mg PO BID [facility] Last Admin: 09/04/16 10:50 Dose: Not Given Furosemide (Lasix Injection -) 40 mg IVPB DAILY [facility] Last Admin: 09/04/16 10:50 Dose: Not Given Guaifenesin (Robitussin -) 5 ml PO Q6H PRN PRN Reason: COUGH Insulin Aspart (Novolog Vial Sliding Scale -) 1 vial SQ ACHS [facility] PRN Reason: Protocol Last Admin: 09/04/16 06:11 Dose: 2 units - Objective Vital Signs: Vital Signs Temperature 98.6 F 09/04/16 05:42 Pulse Rate 98 H 09/04/16 05:42 Respiratory Rate 20 09/04/16 05:42 Blood Pressure 106/62 09/04/16 05:42 O2 Sat by Pulse Oximetry (%) 95 09/03/16 18:13 Constitutional: Yes: No Distress, Calm Neck: Yes: Supple Cardiovascular: Yes: Tachycardia, Pulse Irregular Respiratory: Yes: Regular, Diminished, On Nasal O2 Gastrointestinal: Yes: Normal Bowel Sounds, Soft Edema: No Labs: CBC, BMP 09/04/16 09:10 09/04/16 09:10 INR, PTT INR 2.40 (0.82-1.09) H 09/04/16 09:10 - ....Imaging EKG: Report Reviewed (Tele: Rapid afib) Problem List - Problems (1) Atrial fibrillation with rapid ventricular response Code(s): I48.91 - UNSPECIFIED ATRIAL FIBRILLATION (2) Breast cancer Code(s): C50.919 - MALIGNANT NEOPLASM OF UNSP SITE OF UNSPECIFIED FEMALE BREAST Qualifiers: Breast location: unspecified site of breast Estrogen receptor status: positive Patient sex: female Laterality: right Qualified Code(s): C50.911 - Malignant neoplasm of unspecified site of right female breast; Z17.0 - Estrogen receptor positive status [ER+] (3) Diabetes Code(s): E11.9 - TYPE 2 DIABETES MELLITUS WITHOUT COMPLICATIONS Qualifiers: Diabetes mellitus type: type 2 Diabetes mellitus complication status: without complication Diabetes mellitus keno terminal operator insulin use: without keno terminal operator use Qualified Code(s): E11.9 - Type 2 diabetes mellitus without complications (4) HTN (hypertension) Code(s): I10 - ESSENTIAL (PRIMARY) HYPERTENSION Qualifiers: Hypertension type: essential hypertension Qualified Code(s): I10 - Essential (primary) hypertension (5) Hypercholesteremia Code(s): E78.0 - PURE HYPERCHOLESTEROLEMIA * DO NOT USE * (6) Shortness of breath Code(s): R06.02 - SHORTNESS OF BREATH (7) Demand ischemia Code(s): I24.8 - OTHER FORMS OF ACUTE ISCHEMIC HEART DISEASE (8) Chronic kidney disease (CKD) Code(s): N18.9 - CHRONIC KIDNEY DISEASE, UNSPECIFIED Qualifiers: Chronic kidney disease stage: stage 3 (moderate) Qualified Code(s): N18.3 - Chronic kidney disease, stage 3 (moderate) (9) Acute on chronic systolic (congestive) heart failure Code(s): I50.23 - ACUTE ON CHRONIC SYSTOLIC (CONGESTIVE) HEART FAILURE Assessment/Plan 02/17/2015 Echo: Normal LV size with low normal LV fxn, mild MR, mod TR, mild AR , tr-mild CO, small pericardial effusion 09/02/2016 Echo shows normal LV size with mod-severely decreased LV fxn, mod MR, severe TR, mild MS, signiificant change from previous 1. 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 Paroxysmal atrial fibrillation with rapid ventricular response with therapeutic INR 3. CAD, demand ischemic injury 4. Hypertension/HCVD 5. NIDDM 6. Hyperlipidemia 7. Carotid artery stenosis 8. Ascending thoracic aortic aneurysm 9. Breast carcinoma post left mastectomy with mets to lung and bone 10. Acute on CKD PLAN: 1. Change carvedilol to Toprol XL 50 bid, Lipitor 20 qhs, resume Diovan 80 qd once renal fxn stable 2. Change Lasix to Aldactone 25 qd with monitor diuretic response, renal fxn and electrolytes 3. Wean FIO2 as tolerated, BD as needed 4. Dose Coumadin per INR, OOB to chair
[2016-09-04] MEDS ORDERED: POTASSIUM CHLORIDE ORAL LIQUID 20 MEQ/15 ML PO ONE (11:30)
[2016-09-04] MEDS: METOPROLOL SUCCINATE 50 MG TAB.SR.24H (FP) PO SCH ×2 (11:57→21:17)
[2016-09-04] MEDS ORDERED: METOPROLOL TARTRATE 50 MG TABLET (FP) ONE (12:04)
--- NOTE | 2016-09-04 12:04 | PN ---
Progress Note, Physician - Current Medication List Current Medications: Active Medications Albuterol/Ipratropium (Duoneb -) 1 amp NEB Q6H PRN PRN Reason: SHORTNESS OF BREATH Last Admin: 09/04/16 07:12 Dose: 1 amp Atorvastatin Calcium (Lipitor -) 20 mg PO HS [facility] Last Admin: 09/03/16 22:35 Dose: 20 mg Guaifenesin (Robitussin -) 5 ml PO Q6H PRN PRN Reason: COUGH Insulin Aspart (Novolog Vial Sliding Scale -) 1 vial SQ ACHS [facility] PRN Reason: Protocol Last Admin: 09/04/16 11:55 Dose: Not Given Metoprolol Succinate (Toprol Xl -) 50 mg PO BID [facility] Last Admin: 09/04/16 11:57 Dose: 50 mg Spironolactone (Aldactone -) 25 mg PO DAILY [facility] Warfarin Sodium (Coumadin -) 3 mg PO DAILY@1800 [facility] - Objective Vital Signs: Vital Signs Temperature 98.6 F 09/04/16 05:42 Pulse Rate 98 H 09/04/16 05:42 Respiratory Rate 20 09/04/16 05:42 Blood Pressure 106/62 09/04/16 05:42 O2 Sat by Pulse Oximetry (%) 95 09/03/16 18:13 Constitutional: Yes: Well Nourished Eyes: Yes: WNL HENT: Yes: WNL Neck: Yes: WNL Cardiovascular: Yes: WNL, Tachycardia Respiratory: Yes: Rales Gastrointestinal: Yes: WNL, Normal Bowel Sounds, Soft Labs: CBC, BMP 09/04/16 09:10 09/04/16 09:10 INR, PTT INR 2.40 (0.82-1.09) H 09/04/16 09:10 Problem List - Problems (1) Shortness of breath Code(s): R06.02 - SHORTNESS OF BREATH (2) Atrial fibrillation with rapid ventricular response Code(s): I48.91 - UNSPECIFIED ATRIAL FIBRILLATION (3) Acute on chronic diastolic (congestive) heart failure Code(s): I50.33 - ACUTE ON CHRONIC DIASTOLIC (CONGESTIVE) HEART FAILURE (4) Metastatic breast cancer Code(s): C50.919 - MALIGNANT NEOPLASM OF UNSP SITE OF UNSPECIFIED FEMALE BREAST (5) Diabetes Code(s): E11.9 - TYPE 2 DIABETES MELLITUS WITHOUT COMPLICATIONS Qualifiers: Diabetes mellitus type: type 2 Diabetes mellitus complication status: without complication Diabetes mellitus long term care phlebotomist insulin use: without long term care phlebotomist use Qualified Code(s): E11.9 - Type 2 diabetes mellitus without complications (6) HTN (hypertension) Code(s): I10 - ESSENTIAL (PRIMARY) HYPERTENSION Qualifiers: Hypertension type: essential hypertension Qualified Code(s): I10 - Essential (primary) hypertension (7) Hypercholesteremia Code(s): E78.0 - PURE HYPERCHOLESTEROLEMIA * DO NOT USE *
[2016-09-04] MEDS ORDERED: PT OWN MED DRAWER 7, Y5N ONE (12:05)
--- NOTE | 2016-09-04 14:26 | PN ---
Progress Note (short form) - Note Progress Note: Feels overall better. On NC O2. Did not require the use of NIPPV overnight. Intake & Output 09/01/16 09/02/16 09/03/16 09/04/16 23:59 23:59 23:59 23:59 Intake Total 1545 550 680 70 Output Total 1750 1850 2200 Balance -005 -1300 1520 70 Weight 188 lb 8 oz 190 lb 9 oz 185 lb 7 oz 176 lb 4 oz Last Vital Signs Temp Pulse Resp BP Pulse Ox 98.6 F 98 H 20 106/62 97 09/04/16 05:42 09/04/16 05:42 09/04/16 05:42 09/04/16 05:42 09/04/16 11:55 Active Medications Albuterol/Ipratropium (Duoneb -) 1 amp NEB Q6H PRN PRN Reason: SHORTNESS OF BREATH Last Admin: 09/04/16 07:12 Dose: 1 amp Atorvastatin Calcium (Lipitor -) 20 mg PO HS [facility] Last Admin: 09/03/16 22:35 Dose: 20 mg Guaifenesin (Robitussin -) 5 ml PO Q6H PRN PRN Reason: COUGH Insulin Aspart (Novolog Vial Sliding Scale -) 1 vial SQ ACHS [facility] PRN Reason: Protocol Last Admin: 09/04/16 11:55 Dose: Not Given Metoprolol Succinate (Toprol Xl -) 50 mg PO BID [facility] Last Admin: 09/04/16 11:57 Dose: 50 mg Spironolactone (Aldactone -) 25 mg PO DAILY [facility] Warfarin Sodium (Coumadin -) 3 mg PO DAILY@1800 [facility] Constitutional: Yes: Awake on NC O2 Eyes: Yes: EOM Intact Cardiovascular: Yes: Regular Rate and Rhythm, Murmur, S1, S2 Respiratory: Yes: Bilateral Rales/rhonchi, no Wheezes Gastrointestinal: Yes: Normal Bowel Sounds, Soft Edema: LLE: 1+, RLE: 1+ Neurological: Yes: Alert, Oriented Psychiatric: Yes: Blunted affect Labs: Laboratory Results - last 24 hr 09/03/16 09/03/16 09/04/16 16:59 22:37 05:19 WBC RBC Hgb Hct MCV MCHC RDW Plt Count MPV INR Sodium Potassium Chloride Carbon Dioxide Anion Gap BUN Creatinine POC Glucometer [phone] 188 Random Glucose Calcium 05/27/17 05/27/17 05/27/17 09:10 09:10 09:10 WBC 13.8 H D RBC 4.33 Hgb 12.4 Hct 38.4 MCV 88.5 MCHC 32.2 RDW 14.7 Plt Count 244 MPV 7.6 INR 2.40 H Sodium 138 Potassium 3.8 Chloride 101 Carbon Dioxide 27 Anion Gap 10 BUN 51 H D Creatinine 1.7 H POC Glucometer Random Glucose 311 H* D Calcium 9.8 09/04/16 11:53 WBC RBC Hgb Hct MCV MCHC RDW Plt Count MPV INR Sodium Potassium Chloride Carbon Dioxide Anion Gap BUN Creatinine POC Glucometer 281 Random Glucose Calcium Problem List - Problems (1) Acute on chronic diastolic (congestive) heart failure Code(s): I50.33 - ACUTE ON CHRONIC DIASTOLIC (CONGESTIVE) HEART FAILURE (2) Atrial fibrillation with rapid ventricular response Code(s): I48.91 - UNSPECIFIED ATRIAL FIBRILLATION (3) Breast cancer Code(s): C50.919 - MALIGNANT NEOPLASM OF UNSP SITE OF UNSPECIFIED FEMALE BREAST Qualifiers: Breast location: unspecified site of breast Estrogen receptor status: positive Patient sex: female Laterality: right Qualified Code(s): C50.911 - Malignant neoplasm of unspecified site of right female breast; Z17.0 - Estrogen receptor positive status [ER+] (4) Chronic kidney disease (CKD) Code(s): N18.9 - CHRONIC KIDNEY DISEASE, UNSPECIFIED Qualifiers: Chronic kidney disease stage: stage 3 (moderate) Qualified Code(s): N18.3 - Chronic kidney disease, stage 3 (moderate) (5) Demand ischemia Code(s): I24.8 - OTHER FORMS OF ACUTE ISCHEMIC HEART DISEASE (6) Lung metastases Code(s): C78.00 - SECONDARY MALIGNANT NEOPLASM OF UNSPECIFIED LUNG (7) Metastatic breast cancer Code(s): C50.919 - MALIGNANT NEOPLASM OF UNSP SITE OF UNSPECIFIED FEMALE BREAST (8) Pleural effusion Code(s): J90 - PLEURAL EFFUSION, NOT ELSEWHERE CLASSIFIED (9) Shortness of breath Code(s): R06.02 - SHORTNESS OF BREATH Assessment/Plan Lasix BD TX Monitor off ABX Aspiration precautions AC DNI Dr Nash
[2016-09-04] MEDS: WARFARIN NA 3 MG TABLET PO SCH (17:18)
--- NOTE | 2016-09-04 20:16 | PN ---
Progress Note (short form) - Note Progress Note: ENT patient has no complaint of throat pain, breathing is much more comfortable on O2 via nasal cannulae complains of choking when drinking water ok with other foods using thickening agent for liquids PE NAD voice sl hoarse, no stridor or respiratory distress mouth clear, missing teeth, no lesions, airway patent oropharyngeal airway patent hypopharynx: no lesion epiglottis normal pt had hyperactive gag reflex, could not fully visualize vocal cords or mobility Neck no mass or node Impression: acute respiratory distress resolved choking on fluids, voice slightly hoarse 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
[2016-09-04] MEDS: ATORVASTATIN CA 20 MG TABLET (FP) PO SCH (21:15)
[2016-09-05] MEDS: INSULIN SLIDING SCALE (NOVOLOG) 1 VIAL SQ SCH ×4 (06:46→21:54)
[2016-09-05 08:04] LABS: INR 2.42 (0.82-1.09); PROTHROMBIN TIME (PATIENT) 27.1 SEC (9.98-11.88)
[2016-09-05 08:15] LABS: CALCIUM 9.8 mg/dL (8.5-10.1)
[2016-09-05 08:17] LABS: COCKROFT - GAULT 47.872; CREATININE 1.3 mg/dL (0.55-1.02)
[2016-09-05] MEDS: SPIRONOLACTONE 25 MG TABLET (FP) PO SCH (09:55)
[2016-09-05] MEDS: METOPROLOL SUCCINATE 50 MG TAB.SR.24H (FP) PO SCH ×2 (09:55→21:50)
[2016-09-05] MEDS ORDERED: FUROSEMIDE 20 MG TABLET (FP) PO SCH ×2 (10:00)
--- NOTE | 2016-09-05 11:41 | PN ---
Progress Note, Physician History of Present Illness: Dyspnea and O2 requirement improved, currently maintained on 2L NC. Remains in rapid afib. - Current Medication List Current Medications: Active Medications Albuterol/Ipratropium (Duoneb -) 1 amp NEB Q6H PRN PRN Reason: SHORTNESS OF BREATH Last Admin: 09/04/16 07:12 Dose: 1 amp Atorvastatin Calcium (Lipitor -) 20 mg PO HS [facility] Last Admin: 09/04/16 21:15 Dose: 20 mg Guaifenesin (Robitussin -) 5 ml PO Q6H PRN PRN Reason: COUGH Insulin Aspart (Novolog Vial Sliding Scale -) 1 vial SQ ACHS [facility] PRN Reason: Protocol Last Admin: 09/05/16 06:46 Dose: Not Given Metoprolol Succinate (Toprol Xl -) 50 mg PO BID [facility] Last Admin: 09/05/16 09:55 Dose: 50 mg Spironolactone (Aldactone -) 25 mg PO DAILY [facility] Last Admin: 09/05/16 09:55 Dose: 25 mg Warfarin Sodium (Coumadin -) 3 mg PO DAILY@1800 [facility] Last Admin: 09/04/16 17:18 Dose: 3 mg - Objective Vital Signs: Vital Signs Temperature 98.3 F 09/05/16 06:00 Pulse Rate 98 H 09/05/16 06:00 Respiratory Rate 16 09/05/16 06:00 Blood Pressure 108/70 09/05/16 06:00 O2 Sat by Pulse Oximetry (%) 99 09/04/16 21:00 Constitutional: Yes: No Distress, Calm, Thin Neck: Yes: Supple Cardiovascular: Yes: Tachycardia, Pulse Irregular, Murmur (2/6 SM) Respiratory: Yes: Regular, Diminished, On Nasal O2 Gastrointestinal: Yes: Normal Bowel Sounds, Soft Edema: No Labs: CBC, BMP 09/04/16 09:10 09/05/16 05:40 INR, PTT INR 2.42 (0.82-1.09) H 09/05/16 05:40 - ....Imaging EKG: Report Reviewed (Tele: Rapid afib) Problem List - Problems (1) Atrial fibrillation with rapid ventricular response Code(s): I48.91 - UNSPECIFIED ATRIAL FIBRILLATION (2) Breast cancer Code(s): C50.919 - MALIGNANT NEOPLASM OF UNSP SITE OF UNSPECIFIED FEMALE BREAST Qualifiers: Breast location: unspecified site of breast Estrogen receptor status: positive Patient sex: female Laterality: right Qualified Code(s): C50.911 - Malignant neoplasm of unspecified site of right female breast; Z17.0 - Estrogen receptor positive status [ER+] (3) Diabetes Code(s): E11.9 - TYPE 2 DIABETES MELLITUS WITHOUT COMPLICATIONS Qualifiers: Diabetes mellitus type: type 2 Diabetes mellitus complication status: without complication Diabetes mellitus watermelon inspector insulin use: without watermelon inspector use Qualified Code(s): E11.9 - Type 2 diabetes mellitus without complications (4) HTN (hypertension) Code(s): I10 - ESSENTIAL (PRIMARY) HYPERTENSION Qualifiers: Hypertension type: essential hypertension Qualified Code(s): I10 - Essential (primary) hypertension (5) Hypercholesteremia Code(s): E78.0 - PURE HYPERCHOLESTEROLEMIA * DO NOT USE * (6) Shortness of breath Code(s): R06.02 - SHORTNESS OF BREATH (7) Demand ischemia Code(s): I24.8 - OTHER FORMS OF ACUTE ISCHEMIC HEART DISEASE (8) Chronic kidney disease (CKD) Code(s): N18.9 - CHRONIC KIDNEY DISEASE, UNSPECIFIED Qualifiers: Chronic kidney disease stage: stage 3 (moderate) Qualified Code(s): N18.3 - Chronic kidney disease, stage 3 (moderate) (9) Acute on chronic systolic (congestive) heart failure Code(s): I50.23 - ACUTE ON CHRONIC SYSTOLIC (CONGESTIVE) HEART FAILURE Assessment/Plan 02/17/2015 Echo: Normal LV size with low normal LV fxn, mild MR, mod TR, mild AR , tr-mild TN, small pericardial effusion 09/02/2016 Echo shows normal LV size with mod-severely decreased LV fxn, mod MR, severe TR, mild MS, signiificant change from previous 1. 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 Paroxysmal atrial fibrillation with rapid ventricular response with therapeutic INR 3. CAD, demand ischemic injury 4. Hypertension/HCVD 5. NIDDM 6. Hyperlipidemia 7. Carotid artery stenosis 8. Ascending thoracic aortic aneurysm 9. Breast carcinoma post left mastectomy with mets to lung and bone 10. Acute on CKD improving PLAN: 1. Increase Toprol XL 100 bid, Lipitor 20 qhs, resume Diovan 80 qd once renal fxn stable 2. Continue Aldactone 25 qd with monitor diuretic response, renal fxn and electrolytes 3. Wean FIO2 as tolerated, BD as needed 4. Dose Coumadin per INR, OOB to chair
[2016-09-05] MEDS ORDERED: METOPROLOL SUCCINATE 50 MG TAB.SR.24H (FP) PO ONE (11:48)
[2016-09-05] MEDS: ALBUTEROL SO4 2.5/IPRATROPIUM 0.5 INH SOL 3 ML VIAL.NEB. NEB PRN (16:00)
[2016-09-05] MEDS: WARFARIN NA 3 MG TABLET PO SCH ×2 (16:58→17:50)
--- NOTE | 2016-09-05 17:01 | PN ---
Progress Note (short form) - Note Progress Note: Feels overall better. NAD on NC O2. Did not require the use of NIPPV overnight. Intake & Output 09/02/16 09/03/16 09/04/16 09/05/16 23:59 23:59 23:59 23:59 Intake Total 550 680 530 Output Total 1850 2200 1100 600 Balance -1300 -1520 -570 -600 Weight 190 lb 9 oz 185 lb 7 oz 176 lb 4 oz 184 lb 8 oz Last Vital Signs Temp Pulse Resp BP Pulse Ox 98 F 81 18 124/68 99 09/05/16 14:55 09/05/16 14:55 09/05/16 14:55 09/05/16 14:55 09/05/16 10:00 Active Medications Albuterol/Ipratropium (Duoneb -) 1 amp NEB Q6H PRN PRN Reason: SHORTNESS OF BREATH Last Admin: 09/04/16 07:12 Dose: 1 amp Atorvastatin Calcium (Lipitor -) 20 mg PO HS REPLACED BY [facility] Last Admin: 09/04/16 21:15 Dose: 20 mg Guaifenesin (Robitussin -) 5 ml PO Q6H PRN PRN Reason: COUGH Insulin Aspart (Novolog Vial Sliding Scale -) 1 vial SQ ACHS REPLACED BY [facility] PRN Reason: Protocol Last Admin: 09/05/16 16:57 Dose: 6 units Metoprolol Succinate (Toprol Xl -) 100 mg PO BID REPLACED BY [facility] Spironolactone (Aldactone -) 25 mg PO DAILY REPLACED BY [facility] Last Admin: 09/05/16 09:55 Dose: 25 mg Warfarin Sodium (Coumadin -) 3 mg PO DAILY@1800 REPLACED BY [facility] Last Admin: 09/05/16 16:58 Dose: 3 mg Constitutional: Yes: Awake on NC O2 Eyes: Yes: EOM Intact Cardiovascular: Yes: Regular Rate and Rhythm, Murmur, S1, S2 Respiratory: Yes: Bilateral Rales/rhonchi, no Wheezes Gastrointestinal: Yes: Normal Bowel Sounds, Soft Edema: LLE: 1+, RLE: 1+ Neurological: Yes: Alert, Oriented Psychiatric: Yes: Blunted affect Labs: Laboratory Results - last 24 hr 09/04/16 09/04/16 09/05/16 17:13 21:13 05:19 INR Sodium Potassium Chloride Carbon Dioxide Anion Gap BUN Creatinine POC Glucometer 392 268 133 Random Glucose Calcium 09/05/16 09/05/16 09/05/16 05:40 05:40 12:04 INR 2.42 H Sodium 143 Potassium 4.2 Chloride 106 Carbon Dioxide 30 Anion Gap 7 L BUN 46 H Creatinine 1.3 H D POC Glucometer 295 Random Glucose 156 H D Calcium 9.8 Problem List - Problems (1) Acute on chronic diastolic (congestive) heart failure Code(s): I50.33 - ACUTE ON CHRONIC DIASTOLIC (CONGESTIVE) HEART FAILURE (2) Atrial fibrillation with rapid ventricular response Code(s): I48.91 - UNSPECIFIED ATRIAL FIBRILLATION (3) Breast cancer Code(s): C50.919 - MALIGNANT NEOPLASM OF UNSP SITE OF UNSPECIFIED FEMALE BREAST Qualifiers: Breast location: unspecified site of breast Estrogen receptor status: positive Patient sex: female Laterality: right Qualified Code(s): C50.911 - Malignant neoplasm of unspecified site of right female breast; Z17.0 - Estrogen receptor positive status [ER+] (4) Chronic kidney disease (CKD) Code(s): N18.9 - CHRONIC KIDNEY DISEASE, UNSPECIFIED Qualifiers: Chronic kidney disease stage: stage 3 (moderate) Qualified Code(s): N18.3 - Chronic kidney disease, stage 3 (moderate) (5) Demand ischemia Code(s): I24.8 - OTHER FORMS OF ACUTE ISCHEMIC HEART DISEASE (6) Lung metastases Code(s): C78.00 - SECONDARY MALIGNANT NEOPLASM OF UNSPECIFIED LUNG (7) Metastatic breast cancer Code(s): C50.919 - MALIGNANT NEOPLASM OF UNSP SITE OF UNSPECIFIED FEMALE BREAST (8) Pleural effusion Code(s): J90 - PLEURAL EFFUSION, NOT ELSEWHERE CLASSIFIED (9) Shortness of breath Code(s): R06.02 - SHORTNESS OF BREATH Assessment/Plan Lasix BD TX Monitor off ABX Aspiration precautions AC DNI (Need to clarify with patient/family about DNR) Dr Nash
--- NOTE | 2016-09-05 21:06 | PN ---
Progress Note, Physician - Current Medication List Current Medications: Active Medications Albuterol/Ipratropium (Duoneb -) 1 amp NEB Q6H PRN PRN Reason: SHORTNESS OF BREATH Last Admin: 09/05/16 16:00 Dose: 1 amp Atorvastatin Calcium (Lipitor -) 20 mg PO HS [facility] Last Admin: 09/04/16 21:15 Dose: 20 mg Guaifenesin (Robitussin -) 5 ml PO Q6H PRN PRN Reason: COUGH Insulin Aspart (Novolog Vial Sliding Scale -) 1 vial SQ ACHS [facility] PRN Reason: Protocol Last Admin: 09/05/16 16:57 Dose: 6 units Metoprolol Succinate (Toprol Xl -) 100 mg PO BID [facility] Spironolactone (Aldactone -) 25 mg PO DAILY [facility] Last Admin: 09/05/16 09:55 Dose: 25 mg Warfarin Sodium (Coumadin -) 3 mg PO DAILY@1800 [facility] Last Admin: 09/05/16 17:50 Dose: Not Given - Objective Vital Signs: Vital Signs Temperature 98.5 F 09/05/16 17:00 Pulse Rate 129 H 09/05/16 17:00 Respiratory Rate 20 09/05/16 20:29 Blood Pressure 146/85 09/05/16 17:00 O2 Sat by Pulse Oximetry (%) 98 09/05/16 20:29 Constitutional: Yes: Well Nourished Eyes: Yes: WNL HENT: Yes: WNL Neck: Yes: WNL Cardiovascular: Yes: Tachycardia Respiratory: Yes: Rales Gastrointestinal: Yes: WNL, Normal Bowel Sounds, Soft Labs: CBC, BMP 09/04/16 09:10 09/05/16 05:40 INR, PTT INR 2.42 (0.82-1.09) H 09/05/16 05:40 Problem List - Problems (1) Shortness of breath Code(s): R06.02 - SHORTNESS OF BREATH (2) Atrial fibrillation with rapid ventricular response Code(s): I48.91 - UNSPECIFIED ATRIAL FIBRILLATION (3) Acute on chronic diastolic (congestive) heart failure Code(s): I50.33 - ACUTE ON CHRONIC DIASTOLIC (CONGESTIVE) HEART FAILURE (4) Metastatic breast cancer Code(s): C50.919 - MALIGNANT NEOPLASM OF [facility] SITE OF UNSPECIFIED FEMALE BREAST (5) Diabetes Code(s): E11.9 - TYPE 2 DIABETES MELLITUS WITHOUT COMPLICATIONS Qualifiers: Diabetes mellitus type: type 2 Diabetes mellitus complication status: without complication Diabetes mellitus terminal manager insulin use: without terminal manager use Qualified Code(s): E11.9 - Type 2 diabetes mellitus without complications (6) HTN (hypertension) Code(s): I10 - ESSENTIAL (PRIMARY) HYPERTENSION Qualifiers: Hypertension type: essential hypertension Qualified Code(s): I10 - Essential (primary) hypertension (7) Hypercholesteremia Code(s): E78.0 - PURE HYPERCHOLESTEROLEMIA * DO NOT USE *
--- NOTE | 2016-09-05 21:17 | EKG ---
Test Reason : Blood Pressure : / mmHG Vent. Rate : 086 BPM Atrial Rate : 086 BPM P-R Int : 148 ms QRS Dur : 094 ms QT Int : 354 ms P-R-T Axes : 028 -41 261 degrees QTc Int : 423 ms SINUS RHYTHM WITH PREMATURE ATRIAL COMPLEXES LEFT AXIS DEVIATION VOLTAGE CRITERIA FOR LEFT VENTRICULAR HYPERTROPHY ABNORMAL ECG WHEN COMPARED WITH ECG OF 02-SEP-2016 09:07, T WAVE INVERSION LESS EVIDENT IN INFERIOR LEADS Confirmed by DILIA COTTON, SEKOU (2016) on 09/05/2016 9:16:50 PM Referred By: BERYL TAVAREZ Confirmed By:SEKOU DOBBS MD
[2016-09-05] MEDS: ATORVASTATIN CA 20 MG TABLET (FP) PO SCH (21:54)
[2016-09-06] MEDS: INSULIN SLIDING SCALE (NOVOLOG) 1 VIAL SQ SCH ×3 (06:38→23:23)
[2016-09-06 08:29] LABS: INR 2.17 (0.82-1.09); PROTHROMBIN TIME (PATIENT) 24.3 SEC (9.98-11.88)
--- NOTE | 2016-09-06 09:23 | PN ---
Progress Note, Physician History of Present Illness: PULMONARY ALERT,COMFORTABLE,NAD.,-SOB,-CP. O2 SAT 95% ON NASAL O2 - Current Medication List Current Medications: Active Medications Albuterol/Ipratropium (Duoneb -) 1 amp NEB Q6H PRN PRN Reason: SHORTNESS OF BREATH Last Admin: 09/05/16 16:00 Dose: 1 amp Atorvastatin Calcium (Lipitor -) 20 mg PO HS [facility] Last Admin: 09/05/16 21:54 Dose: 20 mg Guaifenesin (Robitussin -) 5 ml PO Q6H PRN PRN Reason: COUGH Insulin Aspart (Novolog Vial Sliding Scale -) 1 vial SQ ACHS [facility] PRN Reason: Protocol Last Admin: 09/06/16 06:38 Dose: 2 units Metoprolol Succinate (Toprol Xl -) 100 mg PO BID [facility] Last Admin: 09/05/16 21:50 Dose: 100 mg Spironolactone (Aldactone -) 25 mg PO DAILY [facility] Last Admin: 09/05/16 09:55 Dose: 25 mg Warfarin Sodium (Coumadin -) 3 mg PO DAILY@1800 [facility] Last Admin: 09/05/16 17:50 Dose: Not Given - Objective Vital Signs: Vital Signs Temperature 98.2 F 09/06/16 05:00 Pulse Rate 112 H 09/06/16 05:00 Respiratory Rate 16 09/06/16 05:00 Blood Pressure 137/88 09/06/16 05:00 O2 Sat by Pulse Oximetry (%) 98 09/05/16 20:29 Constitutional: Yes: Well Nourished, Calm Eyes: Yes: WNL HENT: Yes: WNL Neck: Yes: WNL Cardiovascular: Yes: Pulse Irregular, S1, S2 Respiratory: Yes: Rales (FEW CRCKLES BILATERALLY) Gastrointestinal: Yes: Normal Bowel Sounds, Soft Extremities: Yes: WNL Edema: Yes Labs: CBC, BMP INR, PTT INR 2.17 (0.82-1.09) H 09/06/16 07:15 Assessment/Plan Problem List - Problems (1) Acute on chronic diastolic (congestive) heart failure Code(s): I50.33 - ACUTE ON CHRONIC DIASTOLIC (CONGESTIVE) HEART FAILURE (2) Atrial fibrillation with rapid ventricular response Code(s): I48.91 - UNSPECIFIED ATRIAL FIBRILLATION (3) Breast cancer Code(s): C50.919 - MALIGNANT NEOPLASM OF UNSP SITE OF UNSPECIFIED FEMALE BREAST Qualifiers: Breast location: unspecified site of breast Estrogen receptor status: positive Patient sex: female Laterality: right Qualified Code(s): C50.911 - Malignant neoplasm of unspecified site of right female breast; Z17.0 - Estrogen receptor positive status [ER+] (4) Chronic kidney disease (CKD) Code(s): N18.9 - CHRONIC KIDNEY DISEASE, UNSPECIFIED Qualifiers: Chronic kidney disease stage: stage 3 (moderate) Qualified Code(s): N18.3 - Chronic kidney disease, stage 3 (moderate) (5) Demand ischemia Code(s): I24.8 - OTHER FORMS OF ACUTE ISCHEMIC HEART DISEASE (6) Lung metastases Code(s): C78.00 - SECONDARY MALIGNANT NEOPLASM OF UNSPECIFIED LUNG (7) Metastatic breast cancer Code(s): C50.919 - MALIGNANT NEOPLASM OF UNSP SITE OF UNSPECIFIED FEMALE BREAST (8) Pleural effusion Code(s): J90 - PLEURAL EFFUSION, NOT ELSEWHERE CLASSIFIED (9) Shortness of breath Code(s): R06.02 - SHORTNESS OF BREATH Assessment/Plan Lasix BD TX Aspiration precautions AC DR FRAZIER
[2016-09-06] MEDS: SPIRONOLACTONE 25 MG TABLET (FP) PO SCH (09:54)
[2016-09-06] MEDS: METOPROLOL SUCCINATE 50 MG TAB.SR.24H (FP) PO SCH ×2 (09:54→23:22)
[2016-09-06] MEDS ORDERED: MAGNESIUM HYDROX 2400MG/30ML ORAL SUSPENSION 30 ML CUP PO ONE (10:30)
--- NOTE | 2016-09-06 11:28 | PN ---
Progress Note, Physician History of Present Illness: Dyspnea and O2 requirement improved, currently maintained on 2L NC. Afib with improved rate control. - Current Medication List Current Medications: Active Medications Albuterol/Ipratropium (Duoneb -) 1 amp NEB Q6H PRN PRN Reason: SHORTNESS OF BREATH Last Admin: 09/05/16 16:00 Dose: 1 amp Atorvastatin Calcium (Lipitor -) 20 mg PO HS [facility] Last Admin: 09/05/16 21:54 Dose: 20 mg Guaifenesin (Robitussin -) 5 ml PO Q6H PRN PRN Reason: COUGH Insulin Aspart (Novolog Vial Sliding Scale -) 1 vial SQ ACHS [facility] PRN Reason: Protocol Last Admin: 09/06/16 06:38 Dose: 2 units Metoprolol Succinate (Toprol Xl -) 100 mg PO BID [facility] Last Admin: 09/06/16 09:54 Dose: 100 mg Spironolactone (Aldactone -) 25 mg PO DAILY [facility] Last Admin: 09/06/16 09:54 Dose: 25 mg Warfarin Sodium (Coumadin -) 3 mg PO DAILY@1800 [facility] Last Admin: 09/05/16 17:50 Dose: Not Given - Objective Vital Signs: Vital Signs Temperature 98.2 F 09/06/16 05:00 Pulse Rate 112 H 09/06/16 05:00 Respiratory Rate 16 09/06/16 05:00 Blood Pressure 137/88 09/06/16 05:00 O2 Sat by Pulse Oximetry (%) 98 09/05/16 20:29 Constitutional: Yes: No Distress, Calm Neck: Yes: Supple Cardiovascular: Yes: Pulse Irregular, Murmur (2/6 SM) Respiratory: Yes: Regular, Diminished, On Nasal O2 Gastrointestinal: Yes: Normal Bowel Sounds, Soft Edema: No Labs: CBC, BMP 09/04/16 09:10 09/05/16 05:40 INR, PTT INR 2.17 (0.82-1.09) H 09/06/16 07:15 Problem List - Problems (1) Atrial fibrillation with rapid ventricular response Code(s): I48.91 - UNSPECIFIED ATRIAL FIBRILLATION (2) Breast cancer Code(s): C50.919 - MALIGNANT NEOPLASM OF UNSP SITE OF UNSPECIFIED FEMALE BREAST Qualifiers: Breast location: unspecified site of breast Estrogen receptor status: positive Patient sex: female Laterality: right Qualified Code(s): C50.911 - Malignant neoplasm of unspecified site of right female breast; Z17.0 - Estrogen receptor positive status [ER+] (3) Diabetes Code(s): E11.9 - TYPE 2 DIABETES MELLITUS WITHOUT COMPLICATIONS Qualifiers: Diabetes mellitus type: type 2 Diabetes mellitus complication status: without complication Diabetes mellitus prison insulin use: without terminal clerk use Qualified Code(s): E11.9 - Type 2 diabetes mellitus without complications (4) HTN (hypertension) Code(s): I10 - ESSENTIAL (PRIMARY) HYPERTENSION Qualifiers: Hypertension type: essential hypertension Qualified Code(s): I10 - Essential (primary) hypertension (5) Hypercholesteremia Code(s): E78.0 - PURE HYPERCHOLESTEROLEMIA * DO NOT USE * (6) Shortness of breath Code(s): R06.02 - SHORTNESS OF BREATH (7) Demand ischemia Code(s): I24.8 - OTHER FORMS OF ACUTE ISCHEMIC HEART DISEASE (8) Chronic kidney disease (CKD) Code(s): N18.9 - CHRONIC KIDNEY DISEASE, UNSPECIFIED Qualifiers: Chronic kidney disease stage: stage 3 (moderate) Qualified Code(s): N18.3 - Chronic kidney disease, stage 3 (moderate) (9) Acute on chronic systolic (congestive) heart failure Code(s): I50.23 - ACUTE ON CHRONIC SYSTOLIC (CONGESTIVE) HEART FAILURE Assessment/Plan 02/17/2015 Echo: Normal LV size with low normal LV fxn, mild MR, mod TR, mild AR , tr-mild HI, small pericardial effusion 09/02/2016 Echo shows normal LV size with mod-severely decreased LV fxn, mod MR, severe TR, mild MS, signiificant change from previous 1. 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 Paroxysmal atrial fibrillation with rapid ventricular response with therapeutic INR 3. CAD, demand ischemic injury 4. Hypertension/HCVD 5. NIDDM 6. Hyperlipidemia 7. Carotid artery stenosis 8. Ascending thoracic aortic aneurysm 9. Breast carcinoma post left mastectomy with mets to lung and bone 10. Acute on CKD improving PLAN: 1. Continue Toprol XL 100 bid, Lipitor 20 qhs, resume Diovan 80 qd now that renal fxn stable 2. Continue Aldactone 25 qd with monitor diuretic response, renal fxn and electrolytes 3. Wean FIO2 as tolerated, BD as needed 4. Increase Coumadin dose per INR, OOB to chair
[2016-09-06] MEDS ORDERED: WARFARIN NA 2 MG TABLET (UD) PO SCH (11:31)
[2016-09-06] MEDS: DOCUSATE SODIUM 100 MG CAPSULE (FP) PO SCH ×2 (14:49→23:22)
[2016-09-06] MEDS: VALSARTAN 80 MG TABLET (UD) PO SCH (14:49)
--- NOTE | 2016-09-06 15:10 | PN ---
Progress Note, Physician History of Present Illness: Pt w/ no new complaints - Current Medication List Current Medications: Active Medications Albuterol/Ipratropium (Duoneb -) 1 amp NEB Q6H PRN PRN Reason: SHORTNESS OF BREATH Last Admin: 09/05/16 16:00 Dose: 1 amp Atorvastatin Calcium (Lipitor -) 20 mg PO [facility] Last Admin: 09/05/16 21:54 Dose: 20 mg Docusate Sodium (Colace -) 300 mg PO [facility] Last Admin: 09/06/16 14:49 Dose: 300 mg Guaifenesin (Robitussin -) 5 ml PO Q6H PRN PRN Reason: COUGH Insulin Aspart (Novolog Vial Sliding Scale -) 1 vial SQ ACHS [facility] PRN Reason: Protocol Last Admin: 09/06/16 11:00 Dose: Not Given Metoprolol Succinate (Toprol Xl -) 100 mg PO BID [facility] Last Admin: 09/06/16 09:54 Dose: 100 mg Polyethylene Glycol (Miralax (For Daily Use) -) 17 gm PO DAILY [facility] Spironolactone (Aldactone -) 25 mg PO DAILY [facility] Last Admin: 09/06/16 09:54 Dose: 25 mg Valsartan (Diovan -) 80 mg PO DAILY [facility] Last Admin: 09/06/16 14:49 Dose: 80 mg Warfarin Sodium (Coumadin -) 4 mg PO DAILY@1800 [facility] - Objective Vital Signs: Vital Signs Temperature 97.6 F 09/06/16 14:00 Pulse Rate 101 H 09/06/16 14:00 Respiratory Rate 20 09/06/16 14:00 Blood Pressure 111/71 09/06/16 14:00 O2 Sat by Pulse Oximetry (%) 98 09/05/16 20:29 Constitutional: Yes: Well Nourished Eyes: Yes: WNL HENT: Yes: WNL Neck: Yes: WNL Cardiovascular: Yes: Tachycardia Respiratory: Yes: Diminished Gastrointestinal: Yes: WNL, Normal Bowel Sounds, Soft Labs: CBC, BMP 09/04/16 09:10 09/05/16 05:40 INR, PTT INR 2.17 (0.82-1.09) H 09/06/16 07:15 Problem List - Problems (1) Shortness of breath Code(s): R06.02 - SHORTNESS OF BREATH (2) Atrial fibrillation with rapid ventricular response Code(s): I48.91 - UNSPECIFIED ATRIAL FIBRILLATION (3) Acute on chronic diastolic (congestive) heart failure Code(s): I50.33 - ACUTE ON CHRONIC DIASTOLIC (CONGESTIVE) HEART FAILURE (4) Metastatic breast cancer Code(s): C50.919 - MALIGNANT NEOPLASM OF [facility] SITE OF UNSPECIFIED FEMALE BREAST (5) Diabetes Code(s): E11.9 - TYPE 2 DIABETES MELLITUS WITHOUT COMPLICATIONS Qualifiers: Diabetes mellitus type: type 2 Diabetes mellitus complication status: without complication Diabetes mellitus adjunct faculty for medical terminology insulin use: without halfway use Qualified Code(s): E11.9 - Type 2 diabetes mellitus without complications (6) HTN (hypertension) Code(s): I10 - ESSENTIAL (PRIMARY) HYPERTENSION Qualifiers: Hypertension type: essential hypertension Qualified Code(s): I10 - Essential (primary) hypertension (7) Hypercholesteremia Code(s): E78.0 - PURE HYPERCHOLESTEROLEMIA * DO NOT USE *
[2016-09-06] MEDS: ALBUTEROL SO4 2.5/IPRATROPIUM 0.5 INH SOL 3 ML VIAL.NEB. NEB PRN (17:22)
--- NOTE | 2016-09-06 17:36 | PN ---
Progress Note (short form) - Note Progress Note: PAtient seen and examined Feels better Last Vital Signs Temp Pulse Resp BP Pulse Ox 97.6 F 101 H 20 111/71 98 09/06/16 14:00 09/06/16 14:00 09/06/16 14:00 09/06/16 14:00 09/05/16 20:29 Neck: Supple Nodes: Without adenopathy Breasts: Lt.mastectomy Cor: RSR, No murmurs, No gallops Lungs: decreased rt. > Lt. Abd: Soft, Normal bowel sounds, No organomegaly Ext:No significant edema Abnormal Lab Results 09/06/16 07:15 INR 2.17 H Active Medications Albuterol/Ipratropium (Duoneb -) 1 amp NEB Q6H PRN PRN Reason: SHORTNESS OF BREATH Last Admin: 09/06/16 17:22 Dose: 1 amp Atorvastatin Calcium (Lipitor -) 20 mg PO [facility] Last Admin: 09/05/16 21:54 Dose: 20 mg Docusate Sodium (Colace -) 300 mg PO [facility] Last Admin: 09/06/16 14:49 Dose: 300 mg Guaifenesin (Robitussin -) 5 ml PO Q6H PRN PRN Reason: COUGH Insulin Aspart (Novolog Vial Sliding Scale -) 1 vial SQ ACHS [facility] PRN Reason: Protocol Last Admin: 09/06/16 11:00 Dose: Not Given Metoprolol Succinate (Toprol Xl -) 100 mg PO BID [facility] Last Admin: 09/06/16 09:54 Dose: 100 mg Polyethylene Glycol (Miralax (For Daily Use) -) 17 gm PO DAILY [facility] Spironolactone (Aldactone -) 25 mg PO DAILY [facility] Last Admin: 09/06/16 09:54 Dose: 25 mg Valsartan (Diovan -) 80 mg PO DAILY [facility] Last Admin: 09/06/16 14:49 Dose: 80 mg Warfarin Sodium (Coumadin -) 4 mg PO DAILY@1800 [facility] Last Admin: 09/06/16 17:29 Dose: 4 mg A/P 76 y/o patient with metastatic breast cancer, ER+,LA+, Her2-, , now with shortness of breath, afib, CHF, LVEF-46% CT chest /a/p--08/12 showed extensive Lt. pleural odularity contiguous with mediastinum, rt. chest nodularity. No mets in a/p CXR shows rt. pleural effusion Progressive on faslodex Performance status 3 Will start sesarasin Will discuss with pulmonary regarding draining rt. pleural effusion INR 2.17 today will discuss with pulmonary Discussed at length with her daughter
--- NOTE | 2016-09-06 19:22 | PN ---
Progress Note, Physician History of Present Illness: Pt w/ SOB today and not ambulating - Current Medication List Current Medications: Active Medications Albuterol/Ipratropium (Duoneb -) 1 amp NEB Q6H PRN PRN Reason: SHORTNESS OF BREATH Last Admin: 09/06/16 17:22 Dose: 1 amp Atorvastatin Calcium (Lipitor -) [address] [facility] Last Admin: 09/05/16 21:54 Dose: 20 mg Docusate Sodium (Colace -) 300 mg PO HS [facility] Last Admin: 09/06/16 14:49 Dose: 300 mg Exemestane (Aromasin -) 25 mg PO DAILY@1800 [facility] Guaifenesin (Robitussin -) 5 ml PO Q6H PRN PRN Reason: COUGH Insulin Aspart (Novolog Vial Sliding Scale -) 1 vial SQ ACHS [facility] PRN Reason: Protocol Last Admin: 09/06/16 11:00 Dose: Not Given Metoprolol Succinate (Toprol Xl -) 100 mg PO BID [facility] Last Admin: 09/06/16 09:54 Dose: 100 mg Polyethylene Glycol (Miralax (For Daily Use) -) 17 gm PO DAILY [facility] Spironolactone (Aldactone -) 25 mg PO DAILY [facility] Last Admin: 09/06/16 09:54 Dose: 25 mg Valsartan (Diovan -) 80 mg PO DAILY [facility] Last Admin: 09/06/16 14:49 Dose: 80 mg Warfarin Sodium (Coumadin -) 4 mg PO DAILY@1800 [facility] Last Admin: 09/06/16 17:29 Dose: 4 mg - Objective Vital Signs: Vital Signs Temperature 98.4 F 09/06/16 18:00 Pulse Rate 103 H 09/06/16 18:00 Respiratory Rate 18 09/06/16 18:00 Blood Pressure 139/80 09/06/16 18:00 O2 Sat by Pulse Oximetry (%) 100 09/06/16 10:00 Constitutional: Yes: Well Nourished Eyes: Yes: WNL HENT: Yes: WNL Neck: Yes: WNL Cardiovascular: Yes: WNL, Regular Rate and Rhythm Respiratory: Yes: WNL, Diminished Gastrointestinal: Yes: WNL, Normal Bowel Sounds, Soft Labs: CBC, BMP 09/04/16 09:10 09/05/16 05:40 INR, PTT INR 2.17 (0.82-1.09) H 09/06/16 07:15 Problem List - Problems (1) Shortness of breath Assessment/Plan: Spoke w/ pt and her daughter about dc planning to STR and they agree Lung mets vs CHF Cont lasix PT eval in am Code(s): R06.02 - SHORTNESS OF BREATH (2) Atrial fibrillation with rapid ventricular response Assessment/Plan: Heart rate controlled Cont coumadin Cont to monitor labs Cont coreg Code(s): I48.91 - UNSPECIFIED ATRIAL FIBRILLATION (3) Acute on chronic diastolic (congestive) heart failure Assessment/Plan: BNP >12,000. Cont PO lasix Code(s): I50.33 - ACUTE ON CHRONIC DIASTOLIC (CONGESTIVE) HEART FAILURE (4) Metastatic breast cancer Code(s): C50.919 - MALIGNANT NEOPLASM OF UNSP SITE OF UNSPECIFIED FEMALE BREAST (5) Diabetes Code(s): E11.9 - TYPE 2 DIABETES MELLITUS WITHOUT COMPLICATIONS Qualifiers: Diabetes mellitus type: type 2 Diabetes mellitus complication status: without complication Diabetes mellitus care home insulin use: without local company intermodal truck driver use Qualified Code(s): E11.9 - Type 2 diabetes mellitus without complications (6) HTN (hypertension) Code(s): I10 - ESSENTIAL (PRIMARY) HYPERTENSION Qualifiers: Hypertension type: essential hypertension Qualified Code(s): I10 - Essential (primary) hypertension (7) Hypercholesteremia Code(s): E78.0 - PURE HYPERCHOLESTEROLEMIA * DO NOT USE *
[2016-09-06] MEDS: ATORVASTATIN CA 20 MG TABLET (FP) PO SCH (23:22)
[2016-09-06] MEDS: EXEMESTANE 25 MG TABLET PO SCH (23:22)
[2016-09-07] MEDS: INSULIN SLIDING SCALE (NOVOLOG) 1 VIAL SQ SCH ×4 (06:16→21:22)
[2016-09-07 08:31] LABS: BASOPHIL 0.3 % (0-2.0); EOSINOPHIL 1.1 % (0-4.5); MCH 28.7 pg (25.7-33.7); MCHC 31.9 g/dl (32.0-36.0); MEAN CELL VOLUME 89.8 fl (80-96); MEAN PLT VOLUME 8.2 fl (7.5-11.1); NEUTROPHILS 85.2 % (42.8-82.8); PLATELET COUNT 227 K/MM3 (134-434); RDW 15.4 % (11.6-15.6); WHITE BLOOD COUNT 13.4 K/mm3 (4.0-10.0)
[2016-09-07 08:55] LABS: ALBUMIN 2.8 g/dl (3.4-5.0); CALCIUM 11.4 mg/dL (8.5-10.1)
[2016-09-07 09:00] LABS: BILIRUBIN,TOTAL 0.5 mg/dL (0.2-1.0); COCKROFT - GAULT 46.444; CREATININE 1.3 mg/dL (0.55-1.02); INR 2.03 (0.82-1.09); PROTHROMBIN TIME (PATIENT) 22.6 SEC (9.98-11.88); TOT PROT 6.4 g/dl (6.4-8.2)
--- NOTE | 2016-09-07 10:18 | PN ---
Progress Note, Physician History of Present Illness: pulmonary alert,nad,-c/o cp,-dyspnea - Current Medication List Current Medications: Active Medications Albuterol/Ipratropium (Duoneb -) 1 amp NEB Q6H PRN PRN Reason: SHORTNESS OF BREATH Last Admin: 09/06/16 17:22 Dose: 1 amp Atorvastatin Calcium (Lipitor -) 20 mg PO [facility] Last Admin: 09/06/16 23:22 Dose: 20 mg Docusate Sodium (Colace -) 300 mg PO [facility] Last Admin: 09/06/16 23:22 Dose: 300 mg Exemestane (Aromasin -) 25 mg PO DAILY@1800 [facility] Last Admin: 09/06/16 23:22 Dose: 25 mg Guaifenesin (Robitussin -) 5 ml PO Q6H PRN PRN Reason: COUGH Insulin Aspart (Novolog Vial Sliding Scale -) 1 vial SQ ACHS [facility] PRN Reason: Protocol Last Admin: 09/07/16 06:16 Dose: 8 units Metoprolol Succinate (Toprol Xl -) 100 mg PO BID [facility] Last Admin: 09/06/16 23:22 Dose: 100 mg Polyethylene Glycol (Miralax (For Daily Use) -) 17 gm PO DAILY [facility] Spironolactone (Aldactone -) 25 mg PO DAILY [facility] Last Admin: 09/06/16 09:54 Dose: 25 mg Valsartan (Diovan -) 80 mg PO DAILY [facility] Last Admin: 09/06/16 14:49 Dose: 80 mg Warfarin Sodium (Coumadin -) 4 mg PO DAILY@1800 [facility] Last Admin: 09/06/16 17:29 Dose: 4 mg - Objective Vital Signs: Vital Signs Temperature 97.2 F L 09/07/16 06:00 Pulse Rate 98 H 09/07/16 06:00 Respiratory Rate 20 09/07/16 06:00 Blood Pressure 147/92 09/07/16 06:00 O2 Sat by Pulse Oximetry (%) 100 09/06/16 21:00 Constitutional: Yes: Well Nourished, Calm Eyes: Yes: WNL HENT: Yes: WNL Neck: Yes: WNL Cardiovascular: Yes: Pulse Irregular, S1, S2 Respiratory: Yes: CTA Bilaterally Gastrointestinal: Yes: Normal Bowel Sounds, Soft Extremities: Yes: WNL Edema: No Labs: CBC, BMP 09/07/16 07:55 09/07/16 07:55 INR, PTT INR 2.03 (0.82-1.09) H 09/07/16 07:55 Assessment/Plan Problem List - Problems (1) Acute on chronic diastolic (congestive) heart failure Code(s): I50.33 - ACUTE ON CHRONIC DIASTOLIC (CONGESTIVE) HEART FAILURE (2) Atrial fibrillation with rapid ventricular response Code(s): I48.91 - UNSPECIFIED ATRIAL FIBRILLATION (3) Breast cancer Code(s): C50.919 - MALIGNANT NEOPLASM OF UNSP SITE OF UNSPECIFIED FEMALE BREAST Qualifiers: Breast location: unspecified site of breast Estrogen receptor status: positive Patient sex: female Laterality: right Qualified Code(s): C50.911 - Malignant neoplasm of unspecified site of right female breast; Z17.0 - Estrogen receptor positive status [ER+] (4) Chronic kidney disease (CKD) Code(s): N18.9 - CHRONIC KIDNEY DISEASE, UNSPECIFIED Qualifiers: Chronic kidney disease stage: stage 3 (moderate) Qualified Code(s): N18.3 - Chronic kidney disease, stage 3 (moderate) (5) Demand ischemia Code(s): I24.8 - OTHER FORMS OF ACUTE ISCHEMIC HEART DISEASE (6) Lung metastases Code(s): C78.00 - SECONDARY MALIGNANT NEOPLASM OF UNSPECIFIED LUNG (7) Metastatic breast cancer Code(s): C50.919 - MALIGNANT NEOPLASM OF UNSP SITE OF UNSPECIFIED FEMALE BREAST (8) Pleural effusion Code(s): J90 - PLEURAL EFFUSION, NOT ELSEWHERE CLASSIFIED (9) Shortness of breath Code(s): R06.02 - SHORTNESS OF BREATH Assessment/Plan Aldactone BD TX Aspiration precautions AC PT DR FRAZIER
--- NOTE | 2016-09-07 10:33 | PN ---
Progress Note (short form) - Note Progress Note: Chief Complaint: Events noted, notes reviewed, denies any chest pain or dyspnea , atrial fibrillation persists with periods of rapid ventricular response History of Present Illness: Seen nad examined on telemetry. Events noted, notes reviewed, denies any chest pain or dyspnea, atrial fibrillation persists with periods of rapid ventricular response Echocardiography dated 02/17/2015 Normal LV size with low normal LV function, mild MR/AI and moderate TR Echocardiography dated 09/02/2016 Normal LV size with moderate-severe decrease in LV systolic function, mild MS, moderate MR and severe TR - Current Medication List Current Medications Albuterol/Ipratropium (Duoneb -) 1 amp NEB Q6H PRN PRN Reason: SHORTNESS OF BREATH Last Admin: 09/06/16 17:22 Dose: 1 amp Atorvastatin Calcium (Lipitor -) 20 mg PO [facility] Last Admin: 09/06/16 23:22 Dose: 20 mg Docusate Sodium (Colace -) 300 mg PO [facility] Last Admin: 09/06/16 23:22 Dose: 300 mg Exemestane (Aromasin -) 25 mg PO DAILY@1800 [facility] Last Admin: 09/06/16 23:22 Dose: 25 mg Guaifenesin (Robitussin -) 5 ml PO Q6H PRN PRN Reason: COUGH Insulin Aspart (Novolog Vial Sliding Scale -) 1 vial SQ ACHS [facility] PRN Reason: Protocol Last Admin: 09/07/16 06:16 Dose: 8 units Metoprolol Succinate (Toprol Xl -) 100 mg PO BID [facility] Last Admin: 09/06/16 23:22 Dose: 100 mg Polyethylene Glycol (Miralax (For Daily Use) -) 17 gm PO DAILY [facility] Spironolactone (Aldactone -) 25 mg PO DAILY [facility] Last Admin: 09/06/16 09:54 Dose: 25 mg Valsartan (Diovan -) 80 mg PO DAILY [facility] Last Admin: 09/06/16 14:49 Dose: 80 mg Warfarin Sodium (Coumadin -) 4 mg PO DAILY@1800 [facility] Last Admin: 09/06/16 17:29 Dose: 4 mg Review of Systems Cardiovascular: As noted above Respiratory: denies: denies: Cough or Sputum Production Gastrointestinal: denies: Nausea, Vomiting, Diarrhea, Constipation or Abdominal Discomfort Musculoskeletal: No Symptoms Reported Endocrine: No Symptoms Reported - Objective Vital Signs: Last Vital Signs Temp Pulse Resp BP Pulse Ox 97.2 F L 98 H 20 147/92 100 09/07/16 06:00 09/07/16 06:00 09/07/16 06:00 09/07/16 06:00 09/06/16 21:00 Constitutional: No Distress, Calm Neck: Supple Negative JVD Cardiovascular: S1 S2 Irregularly Irregular Grade 2/6 SM Respiratory: Diminished Breath Sounds at the Bases Gastrointestinal: Soft Benign Normal Bowel Sounds Ext: No Edema Labs: CBC, BMP 09/07/16 07:55 09/07/16 07:55 Hepatic Panel Total Bilirubin 0.5 mg/dL (0.2-1.0) 09/07/16 07:55 AST 24 U/L (15-37) 09/07/16 07:55 ALT 48 U/L (12-78) D 09/07/16 07:55 Alkaline Phosphatase 72 U/L (45-117) D 09/07/16 07:55 Albumin 2.8 g/dl (3.4-5.0) L 09/07/16 07:55 INR, PTT INR 2.03 (0.82-1.09) H 09/07/16 07:55 Assessment/Plan ASSESSMENT: 1. 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 Paroxysmal atrial fibrillation with rapid ventricular response with therapeutic INR 3. CAD angina pectoris with evidence of demand ischemic injury 4. Hypertension/HCVD 5. NIDDM 6. Hyperlipidemia 7. Carotid artery stenosis 8. Ascending thoracic aortic aneurysm 9. Breast carcinoma post left mastectomy with metastatic disease to lung and bone 10. Acute on CKD improving PLAN: 1. Continue Toprol XL and titrate dosage as tolerated 2. Continue Diovan 3. Continue Lipitor 4. Continue Aldactone with close monitoring of renal function and electrolytes 5. Continue Coumadin as per INR Jerzy Ontiveros M.D.
--- NOTE | 2016-09-07 10:41 | CONSULT ---
Admitting History and Physical - Primary Care Physician PCP: Mony De Jesus - Admission History of Present Illness: 76 year old female with PMH of Left breast cancer s/p lumpectomy and mastectomy (2000) with recurrence and mets to lung and bone, DVT, CAD, HTN, HLD, ascending thoracic aortic aneurysm, carotid stenosis, DM, CVA, Paroxysmal Atrial fibrillation who presented to ED with acute respiratory failure d/t paroxysmal A -fib overlying chronic diastolic CHF & lung mets. Diabetic diet with Glucerna TID. Order for nectar thick liquids?Pt reports getting ensure Compact. Swallowing evaluation ordered. Selected Entries 09/05/16 09/05/16 09/06/16 14:57 20:20 01:00 Breakfast Lunch 50% Supper 50% Temperature 97.8 F 09/06/16 09/06/16 09/06/16 05:00 10:00 14:00 Breakfast 75% Lunch 75% Supper Temperature 98.2 F 98.4 F 97.6 F 09/06/16 09/06/16 09/06/16 18:00 19:28 22:00 Breakfast Lunch Supper 75% Temperature 98.4 F 98.2 F 09/07/16 09/07/16 02:00 06:00 Breakfast Lunch Supper Temperature 97.4 F L 97.2 F L Seen by ENT. History Source: Patient Limitations to Obtaining History: No Limitations (Mild Non fluent Aphasia) - Past Medical History [employer]: Yes: CVA Cardiovascular: Yes: AFIB, CAD, HTN, Hyperlipdemia Pulmonary: Yes: Other (mets to lung) ...: No Heme/Onc: Yes: Other (Breast cancer w/ mets to bone and lung) Musculoskeletal: Yes: Osteoarthritis Endocrine: Yes: Diabetes Mellitus, Other (Parathyroid adenoma) - Past Surgical History Past Surgical History: Yes: Mastectomy Additional Past Surgical History: Lt breast mastectomy - Smoking History Smoking history: Former smoker Have you smoked in the past 12 months: No Aproximately how many cigarettes per day: 0 If you are a former smoker, when did you quit?: Over 30 years ago - Alcohol/Substance Use Hx Alcohol Use: No History of Substance Use: reports: None - Social History ADL: Family Assistance History of Recent Travel: No History - Admission Reason For Visit: ATRIAL FIBRILLATION - Diagnostics X-ray: Report Reviewed - General Mental Status: Alert and Oriented, Awake and Alert, Able to Follow Commands Attention: Intact Ability to Follow Directions: Excellent Head/Neck Control: WFL - Hearing Hearing: Normal Speech Evaluation - Communication Primary Language: [place] Communication: Yes: Aphasia (Mild Non fluent Aphasia, with slow, delayed propositional speech, occasional clonic dysfluncies and anomia with good function.) Oral Expression Ability: Yes: Mild Impairment - Speech Production Able to Make Needs Known: Yes: Mildly Impaired Intelligibility: Yes: Mildly Impaired - Speech Characteristics Voice Loudness: Mildly Soft/Quiet Voice Pitch: Yes: Normal Voice Phonatory-based Quality: Yes: Hoarse Speech Pattern: Impaired Speech Clarity: < 75% Nasal Resonance: Normal Articulation: Yes: Precise - Language/Verbal Expression Aphasia: Yes: Nonfluent, Anomia Able to Respond to Simple Queries: Yes: Mildly Impaired Able to Communicate Wants and Needs: Yes: Mildly Impaired Functional Communication Status: Yes: Mildly Impaired - Memory/Perception senior care Memory: Yes: WNL Short Term Memory: Yes: WNL - Swallow Evaluation/Bedside Assessment Current Nutritional Intake: Regular, Calio Textured Liquids Oral Secretions: Yes: WFL Dentition: Yes: Missing Teeth Facial Symmetry at Rest: Facial Droop Right Facial Symmetry on Retraction: Facial Droop Right Pucker Lips: Droops Right Smile: Droops Right Lingual Movement: Symmetric Lingual Speed of Movement: Normal Lingual Movement Strgth Against Opposition: Normal Lingual Movement Characteristics: Normal Velopharyngeal Movement: Normal Laryngeal Movement: Able to Palpate Rate of Intake: WFL Bolus Size: WFL Oral Prep Time: WFL A-P Transit: WFL Timing of Swallow: Delayed Coughing/Throat Clear: Yes (thin) Recommendations - Speech Evaluation, Impression/Plan Impression: White patches inside cheeks, c/w candidiasis. Pt reports onset of hoarseness, followed by onset of coughing on thin liquid. Doing well with nectar thick by still with cough response with thin liquid, c/w aspiration. Suspect candidiasis resulting in hoarseness/dysphagia. - Dysphagia Impressions/Plan Swallowing Skills: Impaired Dysphagia Impressions: Mild Impairment, Moderate Impairment, Suspect Aspiration *Silent aspiration: cannot be R/O at bedside Recommendations: Modified Barium Swallow (Once treated for brenna, if dysphonia /dysphagia persists), Other (Medical evaluation/mgmt for brenna) - Recommendations Diet Consistency: Other (Soft food. RD consult, dislikes food, wants other options including cottage cheese and fruit) Medication Administration: Crushed with applesauce Liquids: Calio Thick Supplement: Other (ensure compact)
[2016-09-07] MEDS: SPIRONOLACTONE 25 MG TABLET (FP) PO SCH (11:30)
[2016-09-07] MEDS ORDERED: METOPROLOL SUCCINATE 100 MG TAB.SR.24H (FP) PO ONE (11:31)
[2016-09-07] MEDS: VALSARTAN 80 MG TABLET (UD) PO SCH (11:31)
[2016-09-07] MEDS ORDERED: METOPROLOL SUCCINATE 50 MG TAB.SR.24H (FP) ONE (11:32)
[2016-09-07] MEDS: POLYETHYLENE GLYCOL 3350 119 GM BTL PO SCH (11:33)
[2016-09-07] MEDS: METOPROLOL SUCCINATE 50 MG TAB.SR.24H (FP) PO SCH ×2 (11:33→21:22)
[2016-09-07] MEDS: EXEMESTANE 25 MG TABLET PO SCH (17:34)
[2016-09-07] MEDS: WARFARIN NA 5 MG TABLET (UD) PO SCH (17:35)
[2016-09-07] MEDS: ATORVASTATIN CA 20 MG TABLET (FP) PO SCH (21:22)
[2016-09-07] MEDS: DOCUSATE SODIUM 100 MG CAPSULE (FP) PO SCH (21:22)
[2016-09-07] MEDS: ALBUTEROL SO4 2.5/IPRATROPIUM 0.5 INH SOL 3 ML VIAL.NEB. NEB PRN (21:50)
--- NOTE | 2016-09-08 01:29 | PN ---
Progress Note, Physician History of Present Illness: Pt seems SOB - Current Medication List Current Medications: Active Medications Albuterol/Ipratropium (Duoneb -) 1 amp NEB Q6H PRN PRN Reason: SHORTNESS OF BREATH Last Admin: 09/07/16 21:50 Dose: 1 amp Atorvastatin Calcium (Lipitor -) 20 mg PO HS [facility] Last Admin: 09/07/16 21:22 Dose: 20 mg Docusate Sodium (Colace -) 300 mg PO [facility] Last Admin: 09/07/16 21:22 Dose: 300 mg Exemestane (Aromasin -) 25 mg PO DAILY@1800 [facility] Last Admin: 09/07/16 17:34 Dose: 25 mg Guaifenesin (Robitussin -) 5 ml PO Q6H PRN PRN Reason: COUGH Insulin Aspart (Novolog Vial Sliding Scale -) 1 vial SQ ACHS [facility] PRN Reason: Protocol Last Admin: 09/07/16 21:22 Dose: 10 units Metoprolol Succinate (Toprol Xl -) 150 mg PO BID [facility] Last Admin: 09/07/16 21:22 Dose: 150 mg Polyethylene Glycol (Miralax (For Daily Use) -) 17 gm PO DAILY [facility] Last Admin: 09/07/16 11:33 Dose: 17 gm Spironolactone (Aldactone -) 25 mg PO DAILY [facility] Last Admin: 09/07/16 11:30 Dose: 25 mg Valsartan (Diovan -) 80 mg PO DAILY [facility] Last Admin: 09/07/16 11:31 Dose: 80 mg Warfarin Sodium (Coumadin -) 5 mg PO DAILY@1800 [facility] Last Admin: 09/07/16 17:35 Dose: 5 mg - Objective Vital Signs: Vital Signs Temperature 98.7 F 09/07/16 21:00 Pulse Rate 100 H 09/07/16 21:00 Respiratory Rate 20 09/07/16 21:00 Blood Pressure 130/72 09/07/16 21:00 O2 Sat by Pulse Oximetry (%) 100 09/07/16 22:41 Constitutional: Yes: Well Nourished Eyes: Yes: WNL HENT: Yes: WNL Neck: Yes: WNL Cardiovascular: Yes: WNL, Regular Rate and Rhythm Respiratory: Yes: WNL, Regular, CTA Bilaterally Gastrointestinal: Yes: WNL, Normal Bowel Sounds, Soft Labs: CBC, BMP 09/07/16 07:55 09/07/16 07:55 INR, PTT INR 2.03 (0.82-1.09) H 09/07/16 07:55 Problem List - Problems (1) Shortness of breath Assessment/Plan: DC planning to STR Lung mets vs CHF Cont lasix PT eval in am Code(s): R06.02 - SHORTNESS OF BREATH (2) Atrial fibrillation with rapid ventricular response Assessment/Plan: Heart rate controlled Will increase coumadin Cont to monitor labs Cont coreg Code(s): I48.91 - UNSPECIFIED ATRIAL FIBRILLATION (3) Acute on chronic diastolic (congestive) heart failure Assessment/Plan: BNP >12,000. Cont PO lasix Code(s): I50.33 - ACUTE ON CHRONIC DIASTOLIC (CONGESTIVE) HEART FAILURE (4) Metastatic breast cancer Assessment/Plan: Pt is DNR Code(s): C50.919 - MALIGNANT NEOPLASM OF UNSP SITE OF UNSPECIFIED FEMALE BREAST (5) Diabetes Code(s): E11.9 - TYPE 2 DIABETES MELLITUS WITHOUT COMPLICATIONS Qualifiers: Diabetes mellitus type: type 2 Diabetes mellitus complication status: without complication Diabetes mellitus retirement insulin use: without retirement use Qualified Code(s): E11.9 - Type 2 diabetes mellitus without complications (6) HTN (hypertension) Code(s): I10 - ESSENTIAL (PRIMARY) HYPERTENSION Qualifiers: Hypertension type: essential hypertension Qualified Code(s): I10 - Essential (primary) hypertension (7) Hypercholesteremia Code(s): E78.0 - PURE HYPERCHOLESTEROLEMIA * DO NOT USE *
[2016-09-08] MEDS: INSULIN SLIDING SCALE (NOVOLOG) 1 VIAL SQ SCH ×4 (06:13→23:06)
[2016-09-08 07:34] LABS: BASOPHIL 0.4 % (0-2.0); EOSINOPHIL 1.1 % (0-4.5); MCH 28.7 pg (25.7-33.7); MCHC 31.9 g/dl (32.0-36.0); MEAN CELL VOLUME 89.8 fl (80-96); MEAN PLT VOLUME 8.4 fl (7.5-11.1); NEUTROPHILS 83.4 % (42.8-82.8); PLATELET COUNT 220 K/MM3 (134-434); RDW 15.1 % (11.6-15.6); WHITE BLOOD COUNT 14.8 K/mm3 (4.0-10.0)
[2016-09-08 07:50] LABS: INR 2.38 (0.82-1.09); PROTHROMBIN TIME (PATIENT) 26.7 SEC (9.98-11.88)
[2016-09-08 07:58] LABS: ALBUMIN 2.7 g/dl (3.4-5.0); BILIRUBIN,TOTAL 0.7 mg/dL (0.2-1.0); CALCIUM 11.5 mg/dL (8.5-10.1); CREATININE 1.2 mg/dL (0.55-1.02); TOT PROT 5.9 g/dl (6.4-8.2)
[2016-09-08 08:18] LABS: COCKROFT - GAULT 47.566
[2016-09-08] MEDS: METOPROLOL SUCCINATE 50 MG TAB.SR.24H (FP) PO SCH ×2 (10:09→23:05)
[2016-09-08] MEDS: SPIRONOLACTONE 25 MG TABLET (FP) PO SCH (10:09)
[2016-09-08] MEDS: POLYETHYLENE GLYCOL 3350 119 GM BTL PO SCH (10:09)
[2016-09-08] MEDS: VALSARTAN 80 MG TABLET (UD) PO SCH (10:09)
--- NOTE | 2016-09-08 11:03 | PN ---
Progress Note, Physician History of Present Illness: pulmonary alert,feeling better,mildly dyspneic - Current Medication List Current Medications: Active Medications Albuterol/Ipratropium (Duoneb -) 1 amp NEB Q6H PRN PRN Reason: SHORTNESS OF BREATH Last Admin: 09/07/16 21:50 Dose: 1 amp Atorvastatin Calcium (Lipitor -) 20 mg PO [facility] Last Admin: 09/07/16 21:22 Dose: 20 mg Docusate Sodium (Colace -) 300 mg PO [facility] Last Admin: 09/07/16 21:22 Dose: 300 mg Exemestane (Aromasin -) 25 mg PO DAILY@1800 [facility] Last Admin: 09/07/16 17:34 Dose: 25 mg Guaifenesin (Robitussin -) 5 ml PO Q6H PRN PRN Reason: COUGH Insulin Aspart (Novolog Vial Sliding Scale -) 1 vial SQ [facility] PRN Reason: Protocol Last Admin: 09/08/16 06:13 Dose: 6 units Metoprolol Succinate (Toprol Xl -) 150 mg PO BID [facility] Last Admin: 09/08/16 10:09 Dose: 150 mg Polyethylene Glycol (Miralax (For Daily Use) -) 17 gm PO DAILY [facility] Last Admin: 09/08/16 10:09 Dose: 17 gm Spironolactone (Aldactone -) 25 mg PO DAILY [facility] Last Admin: 09/08/16 10:09 Dose: 25 mg Valsartan (Diovan -) 80 mg PO DAILY [facility] Last Admin: 09/08/16 10:09 Dose: 80 mg Warfarin Sodium (Coumadin -) 5 mg PO DAILY@1800 [facility] Last Admin: 09/07/16 17:35 Dose: 5 mg - Objective Vital Signs: Vital Signs Temperature 98.2 F 09/08/16 09:00 Pulse Rate 89 09/08/16 10:09 Respiratory Rate 16 09/08/16 09:00 Blood Pressure 132/90 09/08/16 09:00 O2 Sat by Pulse Oximetry (%) 99 09/08/16 10:09 Constitutional: Yes: Well Nourished, Calm Eyes: Yes: WNL HENT: Yes: WNL Neck: Yes: WNL Cardiovascular: Yes: Pulse Irregular, S1, S2 Respiratory: Yes: Diminished Gastrointestinal: Yes: Normal Bowel Sounds, Soft Extremities: Yes: WNL Edema: Yes Labs: CBC, BMP 09/08/16 05:35 09/08/16 05:35 INR, PTT INR 2.38 (0.82-1.09) H 09/08/16 05:35 - ....Imaging Cat Scan: Report Reviewed, Image Reviewed (new moderate -large R pleural effusion) Assessment/Plan Problem List - Problems (1) Acute on chronic diastolic (congestive) heart failure Code(s): I50.33 - ACUTE ON CHRONIC DIASTOLIC (CONGESTIVE) HEART FAILURE (2) Atrial fibrillation with rapid ventricular response Code(s): I48.91 - UNSPECIFIED ATRIAL FIBRILLATION (3) Breast cancer Code(s): C50.919 - MALIGNANT NEOPLASM OF UNSP SITE OF UNSPECIFIED FEMALE BREAST Qualifiers: Breast location: unspecified site of breast Estrogen receptor status: positive Patient sex: female Laterality: right Qualified Code(s): C50.911 - Malignant neoplasm of unspecified site of right female breast; Z17.0 - Estrogen receptor positive status [ER+] (4) Chronic kidney disease (CKD) Code(s): N18.9 - CHRONIC KIDNEY DISEASE, UNSPECIFIED Qualifiers: Chronic kidney disease stage: stage 3 (moderate) Qualified Code(s): N18.3 - Chronic kidney disease, stage 3 (moderate) (5) Demand ischemia Code(s): I24.8 - OTHER FORMS OF ACUTE ISCHEMIC HEART DISEASE (6) Lung metastases Code(s): C78.00 - SECONDARY MALIGNANT NEOPLASM OF UNSPECIFIED LUNG (7) Metastatic breast cancer Code(s): C50.919 - MALIGNANT NEOPLASM OF UNSP SITE OF UNSPECIFIED FEMALE BREAST (8) Pleural effusion Code(s): J90 - PLEURAL EFFUSION, NOT ELSEWHERE CLASSIFIED (9) Shortness of breath Code(s): R06.02 - SHORTNESS OF BREATH Assessment/Plan Aldactone ? Lasix BD TX Aspiration precautions AC PT thoracentesis if no improvement with diuresis f/u chest x-ray DR FRAZIER
--- NOTE | 2016-09-08 13:27 | PN ---
Progress Note, Physician History of Present Illness: Dyspneic, O2 requirement stable on 2L NC, bipap nightly. Afib with RVR, CT scan shows new mod-large right effusion. - Current Medication List Current Medications: Active Medications Albuterol/Ipratropium (Duoneb -) 1 amp NEB Q6H PRN PRN Reason: SHORTNESS OF BREATH Last Admin: 09/07/16 21:50 Dose: 1 amp Atorvastatin Calcium (Lipitor -) 20 mg PO HS [facility] Last Admin: 09/07/16 21:22 Dose: 20 mg Docusate Sodium (Colace -) 300 mg PO HS [facility] Last Admin: 09/07/16 21:22 Dose: 300 mg Exemestane (Aromasin -) 25 mg PO DAILY@1800 [facility] Last Admin: 09/07/16 17:34 Dose: 25 mg Guaifenesin (Robitussin -) 5 ml PO Q6H PRN PRN Reason: COUGH Insulin Aspart (Novolog Vial Sliding Scale -) 1 vial SQ ACHS [facility] PRN Reason: Protocol Last Admin: 09/08/16 12:00 Dose: 8 units Metoprolol Succinate (Toprol Xl -) 150 mg PO BID [facility] Last Admin: 09/08/16 10:09 Dose: 150 mg Nystatin (Nystatin Oral Suspension -) 500,000 units PO TID [facility] Polyethylene Glycol (Miralax (For Daily Use) -) 17 gm PO DAILY [facility] Last Admin: 09/08/16 10:09 Dose: 17 gm Spironolactone (Aldactone -) 25 mg PO DAILY [facility] Last Admin: 09/08/16 10:09 Dose: 25 mg Valsartan (Diovan -) 80 mg PO DAILY [facility] Last Admin: 09/08/16 10:09 Dose: 80 mg Warfarin Sodium (Coumadin -) 5 mg PO DAILY@1800 [facility] Last Admin: 09/07/16 17:35 Dose: 5 mg - Objective Vital Signs: Vital Signs Temperature 98.2 F 09/08/16 09:00 Pulse Rate 89 09/08/16 10:09 Respiratory Rate 16 09/08/16 09:00 Blood Pressure 132/90 09/08/16 09:00 O2 Sat by Pulse Oximetry (%) 99 09/08/16 10:09 Constitutional: Yes: No Distress, Calm Neck: Yes: Supple Cardiovascular: Yes: Tachycardia, Pulse Irregular Respiratory: Yes: Regular, Diminished, On Nasal O2 Gastrointestinal: Yes: Normal Bowel Sounds, Soft Edema: Yes Edema: LLE: Trace, RLE: Trace Labs: CBC, BMP 09/08/16 05:35 09/08/16 05:35 INR, PTT INR 2.38 (0.82-1.09) H 09/08/16 05:35 Problem List - Problems (1) Atrial fibrillation with rapid ventricular response Code(s): I48.91 - UNSPECIFIED ATRIAL FIBRILLATION (2) Breast cancer Code(s): C50.919 - MALIGNANT NEOPLASM OF UNSP SITE OF UNSPECIFIED FEMALE BREAST Qualifiers: Breast location: unspecified site of breast Estrogen receptor status: positive Patient sex: female Laterality: right Qualified Code(s): C50.911 - Malignant neoplasm of unspecified site of right female breast; Z17.0 - Estrogen receptor positive status [ER+] (3) Diabetes Code(s): E11.9 - TYPE 2 DIABETES MELLITUS WITHOUT COMPLICATIONS Qualifiers: Diabetes mellitus type: type 2 Diabetes mellitus complication status: without complication Diabetes mellitus intermediate designer insulin use: without mcfp use Qualified Code(s): E11.9 - Type 2 diabetes mellitus without complications (4) HTN (hypertension) Code(s): I10 - ESSENTIAL (PRIMARY) HYPERTENSION Qualifiers: Hypertension type: essential hypertension Qualified Code(s): I10 - Essential (primary) hypertension (5) Hypercholesteremia Code(s): E78.0 - PURE HYPERCHOLESTEROLEMIA * DO NOT USE * (6) Shortness of breath Code(s): R06.02 - SHORTNESS OF BREATH (7) Demand ischemia Code(s): I24.8 - OTHER FORMS OF ACUTE ISCHEMIC HEART DISEASE (8) Chronic kidney disease (CKD) Code(s): N18.9 - CHRONIC KIDNEY DISEASE, UNSPECIFIED Qualifiers: Chronic kidney disease stage: stage 3 (moderate) Qualified Code(s): N18.3 - Chronic kidney disease, stage 3 (moderate) (9) Acute on chronic systolic (congestive) heart failure Code(s): I50.23 - ACUTE ON CHRONIC SYSTOLIC (CONGESTIVE) HEART FAILURE Assessment/Plan 02/17/2015 Echo: Normal LV size with low normal LV fxn, mild MR, mod TR, mild AR , tr-mild MS, small pericardial effusion 09/02/2016 Echo shows normal LV size with mod-severely decreased LV fxn, mod MR, severe TR, mild MS, signiificant change from previous 1. Acute hypoxic respiratory failure referable to acute on chronic LV systolic failure recurrent (consider tachycardia-induced cardiomyopathy) with right effusion 2. Paroxysmal atrial fibrillation with rapid ventricular response with therapeutic INR 3. CAD, demand ischemic injury 4. Hypertension/HCVD 5. NIDDM 6. Hyperlipidemia 7. Carotid artery stenosis 8. Ascending thoracic aortic aneurysm 9. Breast carcinoma post left mastectomy with mets to lung and bone 10. Acute on CKD improving PLAN: 1. Continue Toprol XL 150 bid, Lipitor 20 qhs, and Diovan 80 qd now that renal fxn stable 2. Resume IV diuresis with continue Aldactone 25 qd with monitor diuretic response, renal fxn and electrolytes 3. Wean FIO2 as tolerated, BD as needed 4. Coumadin dose per INR, OOB to chair
[2016-09-08] MEDS: FUROSEMIDE 40 MG/4 ML INJECTABLE VIAL IVPUSH SCH (15:00)
[2016-09-08] MEDS: NYSTATIN 500,000 UNITS/5 ML SUSPENSION PO SCH ×2 (15:52→23:06)
[2016-09-08] MEDS: WARFARIN NA 5 MG TABLET (UD) PO SCH (17:18)
[2016-09-08] MEDS: EXEMESTANE 25 MG TABLET PO SCH (17:19)
--- NOTE | 2016-09-08 18:58 | PN ---
Progress Note, Physician History of Present Illness: Pt w/ rapid heart rate - Current Medication List Current Medications: Active Medications Atorvastatin Calcium (Lipitor -) 20 mg PO HS [facility] Last Admin: 09/07/16 21:22 Dose: 20 mg Docusate Sodium (Colace -) 300 mg PO HS [facility] Last Admin: 09/07/16 21:22 Dose: 300 mg Exemestane (Aromasin -) 25 mg PO DAILY@1800 [facility] Last Admin: 09/08/16 17:19 Dose: 25 mg Furosemide (Lasix Injection -) 40 mg IVPUSH BID@0600,1400 [facility] Last Admin: 09/08/16 15:00 Dose: 40 mg Guaifenesin (Robitussin -) 5 ml PO Q6H PRN PRN Reason: COUGH Insulin Aspart (Novolog Vial Sliding Scale -) 1 vial SQ ACHS [facility] PRN Reason: Protocol Last Admin: 09/08/16 17:19 Dose: 8 units Metoprolol Succinate (Toprol Xl -) 150 mg PO BID [facility] Last Admin: 09/08/16 10:09 Dose: 150 mg Nystatin (Nystatin Oral Suspension -) 500,000 units PO TID [facility] Last Admin: 09/08/16 15:52 Dose: 500,000 units Polyethylene Glycol (Miralax (For Daily Use) -) 17 gm PO DAILY [facility] Last Admin: 09/08/16 10:09 Dose: 17 gm Spironolactone (Aldactone -) 25 mg PO DAILY [facility] Last Admin: 09/08/16 10:09 Dose: 25 mg Valsartan (Diovan -) 80 mg PO DAILY [facility] Last Admin: 09/08/16 10:09 Dose: 80 mg Warfarin Sodium (Coumadin -) 5 mg PO DAILY@1800 [facility] Last Admin: 09/08/16 17:18 Dose: 5 mg - Objective Vital Signs: Vital Signs Temperature 98.2 F 09/08/16 14:05 Pulse Rate 97 H 09/08/16 14:05 Respiratory Rate 18 09/08/16 14:05 Blood Pressure 122/82 09/08/16 14:05 O2 Sat by Pulse Oximetry (%) 97 09/08/16 17:20 Constitutional: Yes: Well Nourished Eyes: Yes: WNL HENT: Yes: WNL Neck: Yes: Supple Cardiovascular: Yes: Tachycardia, Pulse Irregular Respiratory: Yes: Rales Gastrointestinal: Yes: WNL, Normal Bowel Sounds, Soft Labs: CBC, BMP 09/08/16 05:35 09/08/16 05:35 INR, PTT INR 2.38 (0.82-1.09) H 09/08/16 05:35 Problem List - Problems (1) Shortness of breath Assessment/Plan: Ct scan chest showed increased large pleural effusion Lung mets vs CHF Cont lasix As per pulmonary may need thoracentesis Code(s): R06.02 - SHORTNESS OF BREATH (2) Atrial fibrillation with rapid ventricular response Assessment/Plan: Heart rate increased today Cont cumadin Cont to monitor labs Cont coreg Code(s): I48.91 - UNSPECIFIED ATRIAL FIBRILLATION (3) Acute on chronic diastolic (congestive) heart failure Assessment/Plan: BNP >12,000. Cont IV lasix Code(s): I50.33 - ACUTE ON CHRONIC DIASTOLIC (CONGESTIVE) HEART FAILURE (4) Metastatic breast cancer Assessment/Plan: May need to have thoracenetesis Pt is DNR Code(s): C50.919 - MALIGNANT NEOPLASM OF UNSP SITE OF UNSPECIFIED FEMALE BREAST (5) Diabetes Code(s): E11.9 - TYPE 2 DIABETES MELLITUS WITHOUT COMPLICATIONS Qualifiers: Diabetes mellitus type: type 2 Diabetes mellitus complication status: without complication Diabetes mellitus intermediate insulin use: without marine oil terminal superintendent use Qualified Code(s): E11.9 - Type 2 diabetes mellitus without complications (6) HTN (hypertension) Code(s): I10 - ESSENTIAL (PRIMARY) HYPERTENSION Qualifiers: Hypertension type: essential hypertension Qualified Code(s): I10 - Essential (primary) hypertension (7) Hypercholesteremia Code(s): E78.0 - PURE HYPERCHOLESTEROLEMIA * DO NOT USE *
[2016-09-08] MEDS: DOCUSATE SODIUM 100 MG CAPSULE (FP) PO SCH (23:05)
[2016-09-08] MEDS: ATORVASTATIN CA 20 MG TABLET (FP) PO SCH (23:06)
[2016-09-09] MEDS: NYSTATIN 500,000 UNITS/5 ML SUSPENSION PO SCH (05:58)
[2016-09-09] MEDS: FUROSEMIDE 40 MG/4 ML INJECTABLE VIAL IVPUSH SCH (05:58)
[2016-09-09] MEDS ORDERED: ALBUTEROL SO4 2.5/IPRATROPIUM 0.5 INH SOL 3 ML VIAL.NEB. NEB ONE (06:37)
--- NOTE | 2016-09-09 06:52 | HOSP ---
Subjective - Review of Symptoms Events since last encounter: patent lethargic acutely, not following commands Subjective: doesnt follow commands, awake but not responding, R pupil perrla, L pupil not reactive to light slight movement in L arm but no movement in r arm or legs, b/l decreased reflexes Physical Examination Vital Signs: Vital Signs Temperature 97.0 F L 09/09/16 05:52 Pulse Rate 106 H 09/09/16 05:52 Respiratory Rate 20 09/09/16 05:52 Blood Pressure 131/78 09/09/16 05:52 O2 Sat by Pulse Oximetry (%) 98 09/08/16 21:00 Eyes: No: PERRL (L pupil not reactive to light) Cardiovascular: Yes: Pulse Irregular Respiratory: Yes: Rhonchi Neurological: Yes: Babinski negative, Lethargy. No: Babinski positive, Facial Droop, Seizure Labs: CBC, BMP 09/08/16 05:35 09/08/16 05:35 Hospitalist Encounter Assessment: possible stroke -called code schroeder -ct head w/o contast -trop -bgm 200 -speech/swallow -npo -notify pcp Visit type - Emergency Visit Emergency Visit: Yes ED Registration Date: 08/31/16 Care time: The patient presented to the Emergency Department on the above date and was hospitalized for further evaluation of their emergent condition. - New Patient This patient is new to me today: Yes Date on this admission: 09/09/16 - Critical Care Critical Care patient: No
[2016-09-09 06:59] LABS: BASOPHIL 0.5 % (0-2.0); EOSINOPHIL 1.1 % (0-4.5); MCH 28.6 pg (25.7-33.7); MCHC 31.9 g/dl (32.0-36.0); MEAN CELL VOLUME 89.4 fl (80-96); MEAN PLT VOLUME 8.3 fl (7.5-11.1); NEUTROPHILS 82.7 % (42.8-82.8); PLATELET COUNT 231 K/MM3 (134-434); RDW 15.2 % (11.6-15.6); WHITE BLOOD COUNT 15.6 K/mm3 (4.0-10.0)
[2016-09-09 07:21] LABS: INR 3.02 (0.82-1.09)
[2016-09-09] MEDS ORDERED: METOPROLOL TARTRATE 5 MG/5 ML VIAL IVPUSH PRN (07:32)
--- NOTE | 2016-09-09 07:38 | HOSP ---
Subjective - Review of Symptoms Subjective: Notified by imaging electronic development technician that CT showed questionable L MCA thromboembolism. unaware if this is acute or chronic, recommends CTA for further evaluation if concerned. will defer to primary MD on the case. Called to notify RN of results and to place call out to PMD. She informed me that HR was 130's. ordered metoprolol IVP prn for HR >120 as NPO at this time. Physical Examination Vital Signs: Vital Signs Temperature 97.0 F L 09/09/16 05:52 Pulse Rate 106 H 09/09/16 05:52 Respiratory Rate 20 09/09/16 05:52 Blood Pressure 131/78 09/09/16 05:52 O2 Sat by Pulse Oximetry (%) 98 09/08/16 21:00 Labs: CBC, BMP 09/09/16 06:23
[2016-09-09 07:39] LABS: ALBUMIN 2.8 g/dl (3.4-5.0); CALCIUM 12.2 mg/dL (8.5-10.1); COCKROFT - GAULT 43.9025; CREATININE 1.3 mg/dL (0.55-1.02)
[2016-09-09 07:40] LABS: BILIRUBIN,TOTAL 0.8 mg/dL (0.2-1.0); TOT PROT 6.3 g/dl (6.4-8.2)
--- NOTE | 2016-09-09 08:45 | CON.NEURO ---
Consult Consult Specialty:: neurology - History of Present Illness History of Present Illness: 76 y/o female with PMH significant for HTN, HLD, ascending thoracic aortic aneurysm, carotid stenosis, CVA (with residual right leg weakness; ambulates with a walker), DVT, Pafib, and left breast cancer (s/p lt mastectomy) and mets to the lungs and bone, NIDDM and parathyroid adenoma. presented to the ER bc of increasing dyspnea x few weeks on 08/31/16 found to have rapid AFib while in ER-has been on coumadin. was being teated for large pleural effusion /CHF, noted t have rapid heart rate on 09/08/16. This am apx 545 AM noted to have right sided weakness and poorly responsive. Code schroeder was called. STAT HD CT -- suggested left MCA stroke, though she has prior stroke in same territory. Neurology was called at 8:15 AM. PT aphasic on exam , no further subjective hx available. no family at bedside. not a TPA candidate-already on coumadin ( iNR 3) and large infarct also relative contraindication. - History Source History Provided By: Medical Record - Past Medical History HORSE BUYER: Yes: CVA Cardio/Vascular: Yes: AFIB, CAD, HTN, Hyperlipdemia Pulmonary: Yes: Other (mets to lung) ...: No Musculoskeletal: Yes: Osteoarthritis Endocrine: Yes: Diabetes Mellitus, Other (Parathyroid adenoma) - Past Surgical History Past Surgical History: Yes: Mastectomy - Alcohol/Substance Use Hx Alcohol Use: No History of Substance Use: reports: None - Smoking History Smoking history: Former smoker Have you smoked in the past 12 months: No Aproximately how many cigarettes per day: 0 If you are a former smoker, when did you quit?: Over 30 years ago - Social History ADL: Family Assistance History of Recent Travel: No Home Medications - Allergies Allergies/Adverse Reactions: Allergies Allergy/AdvReac Type Severity Reaction Status Date / Time No Known Drug Allergies Allergy Verified 08/31/16 07:25 - Home Medications Home Medications: Ambulatory Orders Metformin HCl 500 mg PO BID 02/16/15 Amlodipine Besylate [Norvasc -] 5 mg PO DAILY #30 tablet 02/20/15 Furosemide [Lasix -] 40 mg PO DAILY #30 tablet 02/20/15 Simvastatin [Zocor -] 40 mg PO HS #30 tablet 02/20/15 Nebivolol HCl [Bystolic] 20 mg PO HS 05/07/15 Warfarin Na [Coumadin -] 6 mg PO DAILY #30 tablet 05/08/15 Glyburide [Diabeta -] 5 mg PO ASDIR 08/31/16 Olmesartan Medoxomil [Benicar (Nf)] 40 mg PO ASDIR 08/31/16 Sitagliptin Phosphate [Januvia] 50 mg PO DAILY 08/31/16 Family Disease History - Family Disease History Family Disease History: Other: Daughter (alive and well) Physical Exam-Neuro Vital Signs: Vital Signs Temperature 97.0 F L 09/09/16 05:52 Pulse Rate 114 H 09/09/16 06:45 Respiratory Rate 20 09/09/16 06:45 Blood Pressure 168/88 09/09/16 06:45 O2 Sat by Pulse Oximetry (%) 98 09/08/16 21:00 Labs: CBC, BMP 09/09/16 06:23 09/09/16 06:23 INR, PTT INR 3.02 (0.82-1.09) H 09/09/16 06:23 NIH Stroke Scale - Last Known Well Date/Time & Onset Symptom Onset Date: 09/09/16 Symptom Onset Time: 05:45 Date Last Known Well: 09/09/16 Time Last Known Well: 05:45 - Initial Evaluation Level of consciousness: Not alert, but arousable with minimal stimulation Ask patient the month & their age: Answers One Correctly Ask Patient to open & close eyes; make fist and let go.: Obeys One Correctly Best gaze (horizontal eye movement): Forced Deviation Visual Field Testing: No Visual Loss Facial Palsy(Show teeth or raise eyebrows & close eyes: Complete Paralysis of one or both sides (No movement upper/lower face) Motor Function - Left Arm: Some effort against gravity Motor Function - Right Arm: No movement Motor Function - Left Leg: No effort against gravity; leg falls to be immediately Motor Function - Right Leg: No movement Limb Ataxia: Absent (also used for the pt who does not understand or paralyzed) Sensory (arms, legs, trunk, face): Normal; no sensory loss Best Language: Mute, global aphasia; no usable speech or auditory comprehension. Dysarthria/Articulation: Mild to moderate dysarthria;slurs some words/ understood w/difficulty Extinction and Inattention: No abnormality - Total Score NIH Stroke Scale Score: 24 Imaging - Results Cat Scan: Report Reviewed, Image Reviewed Problem List - Problems (1) Left middle cerebral artery embolism Code(s): I66.02 - OCCLUSION AND STENOSIS OF LEFT MIDDLE CEREBRAL ARTERY (2) Atrial fibrillation with rapid ventricular response Code(s): I48.91 - UNSPECIFIED ATRIAL FIBRILLATION (3) Breast cancer Code(s): C50.919 - MALIGNANT NEOPLASM OF UNSP SITE OF UNSPECIFIED FEMALE BREAST Qualifiers: Breast location: unspecified site of breast Estrogen receptor status: positive Patient sex: female Laterality: right Qualified Code(s): C50.911 - Malignant neoplasm of unspecified site of right female breast; Z17.0 - Estrogen receptor positive status [ER+] (4) Metastatic breast cancer Code(s): C50.919 - MALIGNANT NEOPLASM OF UNSP SITE OF UNSPECIFIED FEMALE BREAST (5) Diabetes Code(s): E11.9 - TYPE 2 DIABETES MELLITUS WITHOUT COMPLICATIONS Qualifiers: Diabetes mellitus type: type 2 Diabetes mellitus complication status: without complication Diabetes mellitus residential insulin use: without residential use Qualified Code(s): E11.9 - Type 2 diabetes mellitus without complications (6) HTN (hypertension) Code(s): I10 - ESSENTIAL (PRIMARY) HYPERTENSION Qualifiers: Hypertension type: essential hypertension Qualified Code(s): I10 - Essential (primary) hypertension (7) Hypercholesteremia Code(s): E78.0 - PURE HYPERCHOLESTEROLEMIA * DO NOT USE * Assessment/Plan 76 y/o female with PMH significant for HTN, HLD, ascending thoracic aortic aneurysm, carotid stenosis, CVA (with residual right leg weakness; ambulates with a walker), DVT, Pafib, and left breast cancer (s/p lt mastectomy) and mets to the lungs and bone, NIDDM and parathyroid adenoma. presented to the ER bc of increasing dyspnea x few weeks on 08/31/16 found to have rapid AFib while in ER-has been on coumadin. was being teated for large pleural effusion /CHF, noted t have rapid heart rate on 09/08/16. This am apx 545 AM noted to have right sided weakness and poorly responsive. Code schroeder was called. STAT HD CT -- suggested left MCA stroke, though she has prior stroke in same territory. Neurology was called at 8:15 AM. PT aphasic on exam , no further subjective hx available. no family at bedside. not a TPA candidate-already on coumadin ( iNR 3) and large infarct also relative contraindication. on exam global aphasia and dense R hemiplegia, and left forced eye gaze likley form stem MCA infarct--,multiple vasc RF ie afib, though INR TX. acute stroke, may be candidate for interventional thrombectomy ( 6-8 hour window ) --spoke to [facility] stroke team and they are willing to evaluate. Family and PMD agreeable. Transfer put in place. Dr Cabello--accepting stroke neurologist. Dr Tomlinson [phone]
[2016-09-09 10:04] VITALS: BP 148/79; PULSE 124
[2016-09-09] MEDS: VALSARTAN 80 MG TABLET (UD) PO SCH (11:07)
[2016-09-09] MEDS: POLYETHYLENE GLYCOL 3350 119 GM BTL PO SCH (11:07)
[2016-09-09] MEDS: SPIRONOLACTONE 25 MG TABLET (FP) PO SCH (11:07)
[2016-09-09] MEDS: METOPROLOL SUCCINATE 50 MG TAB.SR.24H (FP) PO SCH (11:08)
[2016-09-09 12:06] VITALS: TEMP 98
== END 2016-09-09 11:01 | disposition short-term general hospital (02) | DRG 291 ==
LOC: JER 07:23 → JERBED 11:07 → J4W 16:35 → JICU 09-01 16:50 → J4W 09-03 17:16
PROVIDERS: ADMIT Internal Medicine; ATTEND Internal Medicine
DX: I13.0 Hypertensive heart and chronic kidney disease with heart failure and stage 1 through stage 4 chronic kidney disease, or unspecified chronic kidney disease (principal); J96.01 Acute respiratory failure with hypoxia; I50.33 Acute on chronic diastolic (congestive) heart failure; I69.351 Hemiplegia and hemiparesis following cerebral infarction affecting right dominant side; C78.00 Secondary malignant neoplasm of unspecified lung; C79.51 Secondary malignant neoplasm of bone; I24.8 Other forms of acute ischemic heart disease; N17.9 Acute kidney failure, unspecified; D68.59 Other primary thrombophilia; I71.4 Abdominal aortic aneurysm, without rupture; E78.00 Pure hypercholesterolemia, unspecified; I65.29 Occlusion and stenosis of unspecified carotid artery; D34 Benign neoplasm of thyroid gland; C50.912 Malignant neoplasm of unspecified site of left female breast; I69.320 Aphasia following cerebral infarction; M19.90 Unspecified osteoarthritis, unspecified site; I25.118 Atherosclerotic heart disease of native coronary artery with other forms of angina pectoris; E11.22 Type 2 diabetes mellitus with diabetic chronic kidney disease; N18.3 Chronic kidney disease, stage 3 (moderate); I48.0 Paroxysmal atrial fibrillation; J38.00 Paralysis of vocal cords and larynx, unspecified; Z87.891 Personal history of nicotine dependence; Z85.3 Personal history of malignant neoplasm of breast; Z86.718 Personal history of other venous thrombosis and embolism; Z17.0 Estrogen receptor positive status [ER+]; Z79.01 Long term (current) use of anticoagulants
CPT/HCPCS: 36415; 36600; 70450-TC; 71010-TC; 71250-TC; 80048; 80053; 82550; 82803; 83735; 83880; 84100; 84443; 84484; 85025; 85027; 85610; 87040; 93005; 93010; 93306-TC; 94640; 94660; 97116-GP; 97162; 99284-25